=== PATIENT | female | born 1990 | race Caucasian/White ===

== ENCOUNTER 2016-05-18 23:32 | Emergency (ER) | payer MEDICAID ==
[~2016-05-18] VITALS: Ht 149.9 cm; Wt 58.3 kg
[~2016-05-18 23:32] MED LIST: CEPH-367 PO; FERR325T35 PO; FOLIC ACID; NITR100C56; ONDA4TAB7 PO; PREN1TAB60; TAMS-11 PO; stool softener
[2016-05-18 23:36] VITALS: BP 126/80
== END 2016-05-19 01:45 | disposition still patient (30) ==
LOC: ED 05-19 01:39
DX: R10.9 Unspecified abdominal pain (principal); M54.9 Dorsalgia, unspecified; R11.10 Vomiting, unspecified; Z53.21 Procedure and treatment not carried out due to patient leaving prior to being seen by health care provider

== ENCOUNTER 2016-07-29 21:38 | Emergency (ER) | payer MEDICAID ==
[~2016-07-29] VITALS: Ht 149.9 cm; Wt 58.1 kg
[2016-07-29] MEDS ORDERED: SODIUM CHLORIDE 0.9% 1,000 ML IV ONE (22:20)
[2016-07-29] MEDS ORDERED: ONDANSETRON 2MG/ML, 2ML ONE (22:28)
[2016-07-29] MEDS ORDERED: MORPHINE SULFATE 4 MG/ML, 1ML ONE ×2 (22:28→23:19)
[2016-07-29] MEDS ORDERED: SODIUM CHLORIDE 0.9% 1,000ML IVBOLUS ONE (22:30)
[2016-07-29] MEDS ORDERED: ONDANSETRON 2MG/ML, 2ML IVPush ONE (22:30)
[2016-07-29] MEDS ORDERED: SODIUM CHLORIDE FLUSH 10ML SYR IVF ONE (22:30)
[2016-07-29] MEDS: MORPHINE SULFATE 4 MG/ML, 1ML IVPush PRN ×2 (22:32→23:27)
[2016-07-29 22:49] LABS: ASPARTATE AMINO TRANSFERASE 31 U/L (15-37); BLOOD UREA NITROGEN 10 mg/dL (7-18)
[2016-07-29] MEDS ORDERED: OMNIPAQUE 350 MG/ML, 100ML BOTTLE ONE (23:24)
[2016-07-29] MEDS ORDERED: KETOROLAC 30 MG/1 ML ONE (23:59)
[2016-07-30] MEDS ORDERED: KETOROLAC 30 MG/1 ML IVPush ONE
[2016-07-30] MEDS ORDERED: DIPHENHYDRAMINE 50 MG/ML, 1ML ONE (00:26)
[2016-07-30] MEDS ORDERED: DIPHENHYDRAMINE 50 MG/ML, 1ML IVPush ONE (00:30)
[2016-07-30 01:41] VITALS: BP 119/79
== END 2016-07-30 01:44 | disposition home or self-care (01) ==
LOC: ED 07-30 01:38
DX: N20.0 Calculus of kidney (principal); D50.0 Iron deficiency anemia secondary to blood loss (chronic)
CPT/HCPCS: 36415; 36593; 74177; 80053; 81001; 84703; 85025; 87086; 96361; 96374; 96375; 99285; J1200; J1885; J2405; J7030; Q9967

== ENCOUNTER 2016-10-12 18:50 | Emergency (ER) | payer MEDICAID ==
[~2016-10-12] VITALS: Ht 149.9 cm; Wt 58.8 kg
[2016-10-12] MEDS ORDERED: SODIUM CHLORIDE 0.9% 1,000 ML IV ONE (19:13)
[2016-10-12] MEDS ORDERED: ONDANSETRON 2MG/ML, 2ML ONE ×2 (19:18→21:03)
[2016-10-12] MEDS ORDERED: HYDROmorphone 1 MG/ML, 1ML ONE (19:18)
[2016-10-12] MEDS ORDERED: SODIUM CHLORIDE FLUSH 10ML SYR IVF ONE (19:30)
[2016-10-12] MEDS ORDERED: SODIUM CHLORIDE 0.9% 1,000ML IVBOLUS ONE (19:30)
[2016-10-12] MEDS ORDERED: ONDANSETRON 2MG/ML, 2ML IVPush ONE ×2 (19:30→21:00)
[2016-10-12] MEDS: HYDROmorphone 1 MG/ML, 1ML IVPush PRN ×2 (19:33→19:57)
[2016-10-12 19:53] LABS: HEMATOCRIT 27.6 % (34.6-47.8); HEMOGLOBIN 8.8 g/dL (11.7-16.4); WHITE BLOOD COUNT 6.1 x10^3/uL (3.4-10)
[2016-10-12 20:01] LABS: ASPARTATE AMINO TRANSFERASE 26 U/L (15-37); BLOOD UREA NITROGEN 16 mg/dL (7-18)
[2016-10-12] MEDS ORDERED: CEFTRIAXONE PMX 1GM/50ML 50 ML ONE (21:11)
[2016-10-12] MEDS ORDERED: CEFTRIAXONE PMX 1GM/50ML 50 ML IVPB ONE (21:30)
[2016-10-12] MEDS ORDERED: methylPREDNISolone SOD SUCC 125 MG/2 ML ONE (21:32)
[2016-10-12] MEDS ORDERED: DIPHENHYDRAMINE 50 MG/ML, 1ML ONE (21:32)
[2016-10-12 21:43] VITALS: BP 129/80
[2016-10-12] MEDS ORDERED: methylPREDNISolone SOD SUCC 125 MG/2 ML IVPush ONE (22:00)
[2016-10-12] MEDS ORDERED: DIPHENHYDRAMINE 50 MG/ML, 1ML IVPush ONE (22:00)
== END 2016-10-12 22:28 | disposition home or self-care (01) ==
LOC: ED 20:12
DX: N10 Acute pyelonephritis (principal); R19.7 Diarrhea, unspecified; R11.2 Nausea with vomiting, unspecified
CPT/HCPCS: 36415; 74176; 80053; 81001; 83605; 83690; 84703; 85025; 87040; 87077; 87086; 87186; 96365; 96375; 96376; 99285; J0696; J1170; J1200; J2405; J2930; J7030

== ENCOUNTER 2016-11-17 21:28 | Emergency (ER) | payer MEDICAID ==
[~2016-11-17] VITALS: Ht 149.9 cm; Wt 60.3 kg
[~2016-11-17 21:28] MED LIST changes: +FERR-46 PO; -FERR325T35 PO
[2016-11-17] MEDS ORDERED: HYDROcodone/APAP 5/325 TABLET PO ONE (22:00)
[2016-11-17] MEDS ORDERED: ONDANSETRON ODT 4 MG PO ONE (22:00)
[2016-11-17 22:29] LABS: HEMATOCRIT 28.3 % (34.6-47.8); WHITE BLOOD COUNT 5.8 x10^3/uL (3.4-10)
[2016-11-17] MEDS ORDERED: HYDROcodone/APAP 5/325 TABLET ONE (22:33)
[2016-11-17] MEDS ORDERED: ONDANSETRON ODT 4 MG ONE (22:33)
[2016-11-17 22:34] LABS: BLOOD UREA NITROGEN 12 mg/dL (7-18)
[2016-11-17 22:40] LABS: ASPARTATE AMINO TRANSFERASE 18 U/L (15-37)
[2016-11-18] MEDS ORDERED: NITROFURANTOIN (MACROBID) 100 MG CAPSULE PO ONE
[2016-11-18 03:26] VITALS: BP 114/68
== END 2016-11-18 03:26 | disposition home or self-care (01) ==
LOC: ED 11-18 00:39
DX: N30.01 Acute cystitis with hematuria (principal)
CPT/HCPCS: 36415; 76770; 80053; 81001; 83690; 84703; 85025; 87086; 99285; Q0162

== ENCOUNTER 2016-11-30 17:03 | Emergency (ER) | payer MEDICAID ==
[~2016-11-30] VITALS: Ht 149.9 cm; Wt 59.9 kg
[2016-11-30] MEDS ORDERED: PHENAZOPYRIDINE 200 MG TABLET ONE (17:58)
[2016-11-30] MEDS ORDERED: KETOROLAC 30 MG/1 ML ONE (17:59)
[2016-11-30] MEDS ORDERED: PHENAZOPYRIDINE 200 MG TABLET PO ONE (18:00)
[2016-11-30] MEDS ORDERED: KETOROLAC 30 MG/1 ML IM ONE (18:00)
[2016-11-30 18:06] LABS: HEMATOCRIT 31.9 % (34.6-47.8); HEMOGLOBIN 9.9 g/dL (11.7-16.4); WHITE BLOOD COUNT 5.9 x10^3/uL (3.4-10)
[2016-11-30 18:14] LABS: BLOOD UREA NITROGEN 16 mg/dL (7-18)
[2016-11-30 18:37] LABS: DIFF TOTAL CELLS COUNTED 100 CELL DIFF
[2016-11-30 18:43] LABS: ANISOCYTOSIS 1+; HYPOCHROMIA 1+; MICROCYTOSIS 1+; VERIFY COUNTS? YES
[2016-11-30 18:44] LABS: LARGE PLATELETS 1+; POLYCHROMASIA 1+
[2016-11-30] MEDS ORDERED: DIPHENHYDRAMINE 25 MG CAPSULE ONE (18:50)
[2016-11-30] MEDS ORDERED: DIPHENHYDRAMINE 25 MG CAPSULE PO ONE (19:00)
[2016-11-30 19:22] VITALS: BP 128/77
== END 2016-11-30 19:25 | disposition home or self-care (01) ==
LOC: ED 18:55
DX: N20.0 Calculus of kidney (principal); N30.01 Acute cystitis with hematuria
CPT/HCPCS: 36415; 76770; 80048; 81001; 82040; 84703; 85025; 87086; 96372; 99285; J1885; Q0163

== ENCOUNTER 2017-03-07 14:21 | Emergency (ER) | payer MEDICAID ==
[~2017-03-07] VITALS: Ht 149.9 cm; Wt 61.4 kg
[2017-03-07 15:16] LABS: MICROSCOPIC INDICATED
[2017-03-07 15:56] LABS: ALBUMIN 3.8 g/dL (3.4-5.0); ANION GAP 7 mmol/L (5-15); CALCIUM 8.7 mg/dL (8.5-10.1); CHLORIDE 109 mmol/L (98-107); CREATININE 0.61 mg/dL (0.55-1.02)
[2017-03-07] MEDS ORDERED: ONDANSETRON ODT 4 MG ONE (16:10)
[2017-03-07 16:12] LABS: MEAN CORPUSCULAR HEMOGLOBIN 25.2 pg (27.0-34.8); MEAN CORPUSCULAR HGB CONC 32.1 g/dL (32.4-35.8); MEAN CORPUSCULAR VOLUME 78.5 fL (80-100); MEAN PLATELET VOLUME 9.2 fL (7.4-10.4); PLATELET COUNT 246 x10^3/uL (130-400); RED BLOOD COUNT 3.95 x10^6/uL (3.82-5.3); RED CELL DISTRIBUTION WIDTH 18.2 % (9.6-15.2)
[2017-03-07] MEDS ORDERED: ONDANSETRON ODT 4 MG PO ONE (16:30)
[2017-03-07 16:56] LABS: BASOPHILS # (AUTO) 0.08 x10^3/uL (0-0.1); BASOPHILS % (AUTO) 2 % (0-1); EOSINOPHILS # (AUTO) 0.08 x10^3/uL (0-0.4); EOSINOPHILS % (AUTO) 2 % (1-7); LYMPHOCYTES # (AUTO) 1.87 x10^3/uL (1-3.4); LYMPHOCYTES % (AUTO) 36 % (22-44); MONOCYTES # (AUTO) 0.36 x10^3/uL (0.2-0.8); MONOCYTES % (AUTO) 7 % (2-9); NEUTROPHILS # (AUTO) 2.76 x10^3/uL (1.8-6.8); NEUTROPHILS % (AUTO) 54 % (42-75)
[2017-03-07] MEDS ORDERED: HYDROcodone/APAP 5/325 TABLET PO ONE (17:00)
[2017-03-07 17:03] LABS: MD SCAN
[2017-03-07] MEDS ORDERED: HYDROcodone/APAP 5/325 TABLET ONE (17:25)
[2017-03-07 18:41] VITALS: BP 135/90
== END 2017-03-07 18:44 | disposition home or self-care (01) ==
LOC: ED 16:59
DX: N30.00 Acute cystitis without hematuria (principal)
CPT/HCPCS: 36415; 74176; 80048; 81001; 82040; 84703; 85025; 99285; Q0162

== ENCOUNTER 2017-09-01 20:31 | Emergency (ER) | payer MEDICAID ==
[~2017-09-01] VITALS: Ht 149.9 cm; Wt 61.9 kg
[2017-09-01] MEDS ORDERED: HYDROcodone/APAP 5/325 TABLET ONE (21:06)
[2017-09-01 21:18] VITALS: BP 118/81
[2017-09-01] MEDS ORDERED: HYDROcodone/APAP 5/325 TABLET PO ONE (21:30)
== END 2017-09-01 21:21 | disposition home or self-care (01) ==
LOC: ED 21:15
DX: K08.89 Other specified disorders of teeth and supporting structures (principal)
CPT/HCPCS: 99283

== ENCOUNTER 2017-09-15 19:40 | Emergency (ER) | payer MEDICAID ==
[~2017-09-15] VITALS: Ht 149.9 cm; Wt 63.4 kg
[2017-09-15 20:20] LABS: BASOPHILS # (AUTO) 0.08 x10^3/uL (0-0.1); BASOPHILS % (AUTO) 1 % (0-1); EOSINOPHILS # (AUTO) 0.11 x10^3/uL (0-0.4); EOSINOPHILS % (AUTO) 2 % (1-7); LYMPHOCYTES # (AUTO) 2.55 x10^3/uL (1-3.4); LYMPHOCYTES % (AUTO) 44 % (22-44); MD NO; MEAN CORPUSCULAR HEMOGLOBIN 25.3 pg (27.0-34.8); MEAN CORPUSCULAR HGB CONC 31.4 g/dL (32.4-35.8); MEAN CORPUSCULAR VOLUME 80.4 fL (80-100); MEAN PLATELET VOLUME 9.3 fL (7.4-10.4); MONOCYTES # (AUTO) 0.42 x10^3/uL (0.2-0.8); MONOCYTES % (AUTO) 7 % (2-9); NEUTROPHILS # (AUTO) 2.67 x10^3/uL (1.8-6.8); NEUTROPHILS % (AUTO) 46 % (42-75); PLATELET COUNT 287 x10^3/uL (130-400); RED BLOOD COUNT 3.88 x10^6/uL (3.82-5.3); RED CELL DISTRIBUTION WIDTH 19.9 % (9.6-15.2)
[2017-09-15 20:29] LABS: ALANINE AMINOTRANSFERASE 25 U/L (12-78); ANION GAP 8 mmol/L (5-15); CALCIUM 8.9 mg/dL (8.5-10.1); CHLORIDE 110 mmol/L (98-107); CREATININE 0.63 mg/dL (0.55-1.02)
[2017-09-15 20:33] LABS: ALKALINE PHOSPHATASE 76 U/L (45-117); BILIRUBIN,TOTAL 0.2 mg/dL (0.2-1.0); TOTAL PROTEIN 7.8 g/dL (6.4-8.2)
[2017-09-15 20:37] LABS: MICROSCOPIC INDICATED
[2017-09-15 20:38] LABS: CULTURE INDICATED? YES
[2017-09-15 21:26] VITALS: BP 132/78
[2017-09-15] MEDS ORDERED: ONDANSETRON ODT 4 MG ONE (21:27)
[2017-09-15] MEDS ORDERED: ONDANSETRON ODT 4 MG PO ONE (21:30)
== END 2017-09-15 21:44 | disposition home or self-care (01) ==
LOC: ED 21:30
DX: R10.32 Left lower quadrant pain (principal)
CPT/HCPCS: 36415; 76830; 80053; 81001; 84703; 85025; 87086; 99285; Q0162

== ENCOUNTER 2018-01-26 10:30 | Emergency (ER) | payer MEDICAID ==
[~2018-01-26] VITALS: Ht 149.9 cm; Wt 62.6 kg
[2018-01-26 10:37] VITALS: BP 130/82
== END 2018-01-26 11:08 | disposition home or self-care (01) ==
LOC: ED 11:03
DX: K02.9 Dental caries, unspecified (principal)
CPT/HCPCS: 99283

== ENCOUNTER 2018-09-23 19:31 | Emergency (ER) | payer MEDICAID ==
[~2018-09-23] VITALS: Ht 149.9 cm; Wt 65.5 kg
[2018-09-23 19:33] VITALS: BP 118/81
== END 2018-09-23 22:31 | disposition home or self-care (01) ==
LOC: ED 22:26
DX: N39.0 Urinary tract infection, site not specified (principal); R11.10 Vomiting, unspecified; Z87.891 Personal history of nicotine dependence
CPT/HCPCS: 36415; 74176; 80053; 81001; 84703; 85025; 87086; 96361; 96374; 96375; 99284; J2270; J2405; J7030

== ENCOUNTER 2019-01-13 09:55 | Emergency (ER) | payer MEDICAID ==
[~2019-01-13] VITALS: Ht 149.9 cm; Wt 62.8 kg
[2019-01-13 09:56] VITALS: BP 156/91
[2019-01-13 10:52] LABS: MICROSCOPIC INDICATED
[2019-01-13 10:53] LABS: CULTURE INDICATED? YES
[2019-01-13 10:55] LABS: ANION GAP 6 mmol/L (5-15); CALCIUM 8.6 mg/dL (8.5-10.1); CHLORIDE 112 mmol/L (98-107); CREATININE 0.68 mg/dL (0.55-1.02)
[2019-01-13 11:00] LABS: BASOPHILS # (AUTO) 0.03 x10^3/uL (0-0.1); BASOPHILS % (AUTO) 1 % (0-1); EOSINOPHILS # (AUTO) 0.06 x10^3/uL (0-0.4); EOSINOPHILS % (AUTO) 1 % (1-7); LYMPHOCYTES # (AUTO) 1.51 x10^3/uL (1-3.4); LYMPHOCYTES % (AUTO) 27 % (22-44); MD NO; MEAN CORPUSCULAR HEMOGLOBIN 23.2 pg (27.0-34.8); MEAN CORPUSCULAR VOLUME 77.3 fL (80-100); MEAN PLATELET VOLUME 8.7 fL (7.4-10.4); MONOCYTES # (AUTO) 0.31 x10^3/uL (0.2-0.8); MONOCYTES % (AUTO) 6 % (2-9); NEUTROPHILS # (AUTO) 3.73 x10^3/uL (1.8-6.8); NEUTROPHILS % (AUTO) 66 % (42-75); PLATELET COUNT 288 x10^3/uL (130-400); RED BLOOD COUNT 3.92 x10^6/uL (3.82-5.3); RED CELL DISTRIBUTION WIDTH 19.3 % (9.6-15.2)
== END 2019-01-13 12:33 | disposition home or self-care (01) ==
LOC: ED 12:28
DX: N30.01 Acute cystitis with hematuria (principal)
CPT/HCPCS: 36415; 80048; 81001; 82040; 84703; 85025; 87077; 87086; 87186; 99283

== ENCOUNTER 2019-05-29 23:11 | Emergency (ER) | payer MEDICAID ==
[~2019-05-29] VITALS: Ht 149.9 cm; Wt 63.7 kg
--- NOTE | 2019-05-29 23:54 | NUR ---
Patient brought back to room from triage, patient changed into gown. Provider to bedside for assessment. Orders placed. RN to bedside to initiated peripheral intravenous access per order for imaging and medications. Patient reported needing to use the bathroom. Reviewed clean catch urine instructions. Patient verbalized understanding. Will return and complete PIV placement on patient's return.
[2019-05-30] MEDS ORDERED: SODIUM CHLORIDE FLUSH 10ML SYR IVF ONE
[2019-05-30] MEDS ORDERED: ONDANSETRON 2MG/ML, 2ML IVPush ONE
[2019-05-30] MEDS ORDERED: ONDANSETRON 2MG/ML, 2ML ONE (00:20)
[2019-05-30] MEDS ORDERED: MORPHINE SULFATE 4 MG/ML, 1ML ONE ×2 (00:20→01:08)
[2019-05-30] MEDS: MORPHINE SULFATE 4 MG/ML, 1ML IVPush PRN ×2 (00:22→01:10)
[2019-05-30 00:29] LABS: MICROSCOPIC AUTO
[2019-05-30 00:33] LABS: MEAN CORPUSCULAR HEMOGLOBIN 21.8 pg (27.0-34.8); MEAN CORPUSCULAR HGB CONC 30.6 g/dL (32.4-35.8); MEAN CORPUSCULAR VOLUME 71.1 fL (80-100); MEAN PLATELET VOLUME 8.9 fL (7.4-10.4); PLATELET COUNT 333 x10^3/uL (130-400); RED BLOOD COUNT 3.93 x10^6/uL (3.82-5.3); RED CELL DISTRIBUTION WIDTH 20.8 % (9.6-15.2)
[2019-05-30 00:33] LABS: CULTURE INDICATED? YES
[2019-05-30 00:35] LABS: ALBUMIN 4.1 g/dL (3.4-5.0); ANION GAP 8 mmol/L (5-15); CALCIUM 8.6 mg/dL (8.5-10.1); CHLORIDE 111 mmol/L (98-107)
[2019-05-30 00:41] LABS: ALANINE AMINOTRANSFERASE 24 U/L (12-78); ALKALINE PHOSPHATASE 70 U/L (45-117); CREATININE 0.64 mg/dL (0.55-1.02); TOTAL PROTEIN 8.6 g/dL (6.4-8.2)
--- NOTE | 2019-05-30 00:41 | NUR ---
RN to bedside, initiated intravenous access, bharati labs. Patient collected urine sample, collected from cup and sent both blood and urine in tubes with analytical laboratory technician. RN then returned, administered analgesic and antiemetic medication. Patient then reattached to pulsatile oxygen sensor and blood pressure cuff. Vital signs stable (see flowsheet) awaiting computed tomography scan.
[2019-05-30 00:42] LABS: BILIRUBIN,TOTAL < 0.1 mg/dL (0.2-1.0)
[2019-05-30 00:55] LABS: BASOPHILS # (AUTO) 0.28 x10^3/uL (0-0.1); BASOPHILS % (AUTO) 3 % (0-1); EOSINOPHILS # (AUTO) 0.13 x10^3/uL (0-0.4); EOSINOPHILS % (AUTO) 2 % (1-7); LYMPHOCYTES # (AUTO) 2.28 x10^3/uL (1-3.4); LYMPHOCYTES % (AUTO) 26 % (22-44); MD SCAN; MONOCYTES # (AUTO) 0.52 x10^3/uL (0.2-0.8); MONOCYTES % (AUTO) 6 % (2-9); NEUTROPHILS # (AUTO) 5.57 x10^3/uL (1.8-6.8); NEUTROPHILS % (AUTO) 63 % (42-75)
[2019-05-30 01:05] VITALS: BP 128/84
--- NOTE | 2019-05-30 01:25 | NUR ---
BREAK RN: PT ON CELL PHONE IN ROOM. NO ACUTE DISTRESS NTOED. CALL LIGHT IN PLACE. WILL CONTINUE TO MONITOR.
--- NOTE | 2019-05-30 01:28 | NUR ---
REPORT GIVEN TO JORGE SAEED
--- NOTE | 2019-05-30 01:29 | NUR ---
Patient resting comfortably. Awaiting imaging results.
[2019-05-30] MEDS ORDERED: SULFAMETH./TRIMETHOPRIM DS 800MG/160MG TABLET ONE (02:26)
[2019-05-30] MEDS ORDERED: HYDROcodone/APAP 5/325 TABLET ONE (02:26)
[2019-05-30] MEDS ORDERED: HYDROcodone/APAP 5/325 TABLET PO ONE (02:30)
[2019-05-30] MEDS ORDERED: SULFAMETH./TRIMETHOPRIM DS 800MG/160MG TABLET PO ONE (02:30)
== END 2019-05-30 02:47 | disposition home or self-care (01) ==
LOC: ED 05-30 00:11
DX: N10 Acute pyelonephritis (principal); R10.31 Right lower quadrant pain; Z87.891 Personal history of nicotine dependence
CPT/HCPCS: 36415; 74176; 80053; 81001; 83690; 84703; 85025; 87077; 87086; 87147; 96374; 96375; 96376; 99284; J2270; J2405; 87186

== ENCOUNTER 2019-06-04 21:21 | Emergency (ER) | payer MEDICAID ==
[~2019-06-04] VITALS: Ht 149.9 cm; Wt 63.7 kg
[2019-06-04] MEDS ORDERED: SULF1TAB23 PO (21:47)
--- NOTE | 2019-06-04 21:54 | NUR ---
Pt reports she has been dx'd with kidney infection and kidney stones. Pt reports consistent pain to her right abd/flank and new 2 day onset of left sided stabbing flank pain. Pt reports bladder pain/pressure but no burning/pain with urination. Pt reports she is taking bactrim. No fevers at home. 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 Urine sample collected and sent. Pt in gown. Call light within reach. PRECISION JIG GRINDER at bedside.
[2019-06-04] MEDS ORDERED: MORPHINE SULFATE 4 MG/ML, 1ML IVPush PRN (22:00)
[2019-06-04] MEDS ORDERED: MORPHINE SULFATE 4 MG/ML, 1ML ONE (22:00)
[2019-06-04] MEDS ORDERED: ONDANSETRON 2MG/ML, 2ML ONE (22:00)
[2019-06-04] MEDS ORDERED: ONDANSETRON 2MG/ML, 2ML IVPush ONE (22:00)
[2019-06-04] MEDS ORDERED: SODIUM CHLORIDE FLUSH 10ML SYR IVF ONE (22:00)
[2019-06-04 22:15] LABS: MICROSCOPIC INDICATED
[2019-06-04 22:16] LABS: CULTURE INDICATED? YES
[2019-06-04 22:21] LABS: BASOPHILS # (AUTO) 0.01 x10^3/uL (0-0.1); BASOPHILS % (AUTO) 0 % (0-1); EOSINOPHILS # (AUTO) 0.11 x10^3/uL (0-0.4); EOSINOPHILS % (AUTO) 2 % (1-7); LYMPHOCYTES # (AUTO) 1.92 x10^3/uL (1-3.4); LYMPHOCYTES % (AUTO) 30 % (22-44); MD NO; MEAN CORPUSCULAR HEMOGLOBIN 21.9 pg (27.0-34.8); MEAN CORPUSCULAR HGB CONC 30.7 g/dL (32.4-35.8); MEAN CORPUSCULAR VOLUME 71.4 fL (80-100); MEAN PLATELET VOLUME 8.4 fL (7.4-10.4); MONOCYTES % (AUTO) 6 % (2-9); NEUTROPHILS # (AUTO) 3.94 x10^3/uL (1.8-6.8); NEUTROPHILS % (AUTO) 62 % (42-75); PLATELET COUNT 277 x10^3/uL (130-400); RED BLOOD COUNT 3.67 x10^6/uL (3.82-5.3); RED CELL DISTRIBUTION WIDTH 21.2 % (9.6-15.2)
--- NOTE | 2019-06-04 22:24 | NUR ---
PIV placed. Lab at bedside for draw. Pt medicated per APR. Pt on pulse ox/HR monitor. Call light within reach. Warm blanket provided. Aware of wait for lab results.
[2019-06-04 22:32] LABS: ALANINE AMINOTRANSFERASE 19 U/L (12-78); ALBUMIN 3.2 g/dL (3.4-5.0); ANION GAP 6 mmol/L (5-15); CALCIUM 8.3 mg/dL (8.5-10.1); CHLORIDE 111 mmol/L (98-107); CREATININE 0.54 mg/dL (0.55-1.02)
[2019-06-04 22:36] LABS: ALKALINE PHOSPHATASE 59 U/L (45-117); BILIRUBIN,TOTAL 0.1 mg/dL (0.2-1.0); TOTAL PROTEIN 7.7 g/dL (6.4-8.2)
--- NOTE | 2019-06-04 23:19 | NUR ---
Pt alert and sitting up on gurney. at bedside discussing POC. Pt reports pain to her right side has improved.
[2019-06-05 00:15] VITALS: BP 125/71
--- NOTE | 2019-06-05 00:15 | NUR ---
Pt d/c'd to home care. Pt alert, oriented and ambulatory. Pt educated on home care, prescription, OTC meds and follow-up. Pt VU. Pt ambulated out of ER.
== END 2019-06-05 00:18 | disposition home or self-care (01) ==
LOC: ED 22:25
DX: N39.0 Urinary tract infection, site not specified (principal); N10 Acute pyelonephritis
CPT/HCPCS: 36415; 80053; 81001; 84703; 85025; 87086; 96374; 96375; 99284; J2270; J2405

== ENCOUNTER 2019-07-12 19:03 | Emergency (ER) | payer MEDICAID ==
[~2019-07-12] VITALS: Ht 149.9 cm; Wt 63.5 kg
[~2019-07-12 19:03] MED LIST changes: +SULF1TAB23 PO
--- NOTE | 2019-07-12 19:10 | NUR ---
SERVER MANAGER: PT PROVIDED WITH URINE CUP TO OBTAIN SAMPLE WHILE WAITING
[2019-07-12] MEDS ORDERED: SODIUM CHLORIDE 0.9% 1,000 ML IV ONE (19:49)
[2019-07-12] MEDS ORDERED: KETOROLAC 30 MG/1 ML ONE (19:58)
[2019-07-12] MEDS ORDERED: ONDANSETRON 2MG/ML, 2ML ONE (19:58)
[2019-07-12 19:59] LABS: CULTURE INDICATED? YES; MICROSCOPIC AUTO
[2019-07-12] MEDS ORDERED: MORPHINE SULFATE 4 MG/ML, 1ML ONE (19:59)
[2019-07-12] MEDS ORDERED: ONDANSETRON 2MG/ML, 2ML IVPush ONE (20:00)
[2019-07-12] MEDS ORDERED: KETOROLAC 30 MG/1 ML IVPush ONE (20:00)
[2019-07-12] MEDS ORDERED: SODIUM CHLORIDE FLUSH 10ML SYR IVF ONE (20:00)
[2019-07-12] MEDS: MORPHINE SULFATE 4 MG/ML, 1ML IVPush PRN ×2 (20:01→21:31)
--- NOTE | 2019-07-12 20:21 | NUR ---
ATTEMPTED TO START IV, UNSUCCESSFUL. STAFFING MANAGER WILL ATTEMPT IV ACCESS.
--- NOTE | 2019-07-12 20:32 | NUR ---
CT PENDING BETA RESULT.
[2019-07-12 21:11] LABS: ALBUMIN 3.7 g/dL (3.4-5.0); ANION GAP 6 mmol/L (5-15); CALCIUM 8.8 mg/dL (8.5-10.1); CHLORIDE 109 mmol/L (98-107); CREATININE 0.62 mg/dL (0.55-1.02)
[2019-07-12 21:12] LABS: MEAN CORPUSCULAR HEMOGLOBIN 22.2 pg (27.0-34.8); MEAN CORPUSCULAR HGB CONC 30.9 g/dL (32.4-35.8); RED BLOOD COUNT 3.79 x10^6/uL (3.82-5.3); RED CELL DISTRIBUTION WIDTH 19.2 % (9.6-15.2)
[2019-07-12 21:30] LABS: MD YES; MEAN PLATELET VOLUME 9.3 fL (7.4-10.4); PLATELET COUNT 263 x10^3/uL (130-400)
[2019-07-12 21:37] LABS: BASOS#(MANUAL) 0.06 x10^3/uL (0-0.1); BASOS% (MANUAL) 1 % (0-1); LYMPHS% (MANUAL) 41 % (22-44); MONOS#(MANUAL) 0.37 x10^3/uL (0.3-2.7); MONOS% (MANUAL) 6 % (2-9); SEG#(MANUAL) 3.17 x10^3/uL (1.8-6.8); SEGS% (MANUAL) 52 % (42-75)
[2019-07-12 21:38] LABS: ANISOCYTOSIS 1+; HYPOCHROMIA 1+
[2019-07-12 21:39] LABS: <PLATELET ESTIMATE> ADEQUATE; <PLT MORPHOLOGY> NORMAL PLT MORPH; OVALOCYTES 1+
[2019-07-12] MEDS ORDERED: HYDROmorphone 1 MG/ML, 1ML INJ ONE (21:46)
--- NOTE | 2019-07-12 21:55 | NUR ---
PATIENT GIVEN PAIN MEDICATION. TOLERATED WELL. VITAL SIGNS STABLE. NO NOTED ACUTE DISTRESS. AT BEDSIDE WITH PATIENT.
[2019-07-12] MEDS ORDERED: HYDROmorphone 2 MG/ML, 1ML IVPush ONE (22:00)
[2019-07-12 22:20] VITALS: BP 126/64
[2019-07-12 22:29] LABS: % IRON SATURATION 4 % (20-55); IRON LEVEL 18 mcg/dL (50-170); TOTAL IRON BINDING CAPACITY 442 mcg/dL (250-450)
== END 2019-07-12 22:22 | disposition home or self-care (01) ==
LOC: ED 22:10
DX: N10 Acute pyelonephritis (principal); R31.9 Hematuria, unspecified; N39.0 Urinary tract infection, site not specified; D53.9 Nutritional anemia, unspecified; R11.2 Nausea with vomiting, unspecified
CPT/HCPCS: 36415; 74176; 80048; 81001; 82040; 83540; 83550; 84703; 85025; 87077; 87086; 96361; 96374; 96375; 96376; 99284; J1170; J2270; J2405; J7030; 87186

== ENCOUNTER 2019-07-18 19:03 | Emergency (ER) | payer MEDICAID ==
[~2019-07-18] VITALS: Ht 149.9 cm; Wt 63.0 kg
--- NOTE | 2019-07-18 19:17 | NUR ---
C/O RIGTH SIDE ABD PAIN THAT RADIATES TO BACK X2 DAYS.
[2019-07-18] MEDS ORDERED: ONDA4TAB7 PO (19:24)
[2019-07-18] MEDS ORDERED: HYDR-3240 PO ×2 (19:24)
--- NOTE | 2019-07-18 20:06 | NUR ---
PROVIDER AT BEDSIDE FOR EVAL.
[2019-07-18] MEDS ORDERED: ONDANSETRON 2MG/ML, 2ML ONE (20:11)
[2019-07-18] MEDS ORDERED: FAMOTIDINE 20 MG/2 ML ONE (20:12)
[2019-07-18] MEDS ORDERED: SODIUM CHLORIDE 0.9% 1,000ML IVBOLUS ONE (20:30)
[2019-07-18] MEDS ORDERED: ONDANSETRON 2MG/ML, 2ML IVPush ONE (20:30)
[2019-07-18] MEDS ORDERED: FAMOTIDINE 20 MG/2 ML IV ONE (20:30)
[2019-07-18] MEDS ORDERED: SODIUM CHLORIDE FLUSH 10ML SYR IVF ONE (20:30)
--- NOTE | 2019-07-18 20:31 | NUR ---
MEDICATED PER MAR. PT REPORT REPORTS PAIN 5/10.
[2019-07-18 20:34] LABS: BASOPHILS # (AUTO) 0.04 x10^3/uL (0-0.1); BASOPHILS % (AUTO) 1 % (0-1); EOSINOPHILS # (AUTO) 0.11 x10^3/uL (0-0.4); EOSINOPHILS % (AUTO) 2 % (1-7); LYMPHOCYTES # (AUTO) 1.79 x10^3/uL (1-3.4); LYMPHOCYTES % (AUTO) 32 % (22-44); MD NO; MEAN CORPUSCULAR HEMOGLOBIN 22.4 pg (27.0-34.8); MEAN CORPUSCULAR HGB CONC 30.4 g/dL (32.4-35.8); MEAN CORPUSCULAR VOLUME 73.6 fL (80-100); MEAN PLATELET VOLUME 8.5 fL (7.4-10.4); MONOCYTES # (AUTO) 0.26 x10^3/uL (0.2-0.8); MONOCYTES % (AUTO) 5 % (2-9); NEUTROPHILS % (AUTO) 61 % (42-75); PLATELET COUNT 270 x10^3/uL (130-400); RED BLOOD COUNT 3.63 x10^6/uL (3.82-5.3); RED CELL DISTRIBUTION WIDTH 19.7 % (9.6-15.2)
[2019-07-18 20:43] LABS: ALANINE AMINOTRANSFERASE 18 U/L (12-78); ALBUMIN 3.6 g/dL (3.4-5.0); ANION GAP 7 mmol/L (5-15); CALCIUM 8.2 mg/dL (8.5-10.1); CHLORIDE 109 mmol/L (98-107); CREATININE 0.73 mg/dL (0.55-1.02)
[2019-07-18] MEDS ORDERED: MORPHINE SULFATE 4 MG/ML, 1ML ONE (20:43)
[2019-07-18 20:47] LABS: ALKALINE PHOSPHATASE 65 U/L (45-117); BILIRUBIN,TOTAL 0.2 mg/dL (0.2-1.0); TOTAL PROTEIN 7.9 g/dL (6.4-8.2)
[2019-07-18 20:51] LABS: MICROSCOPIC INDICATED
[2019-07-18] MEDS ORDERED: MORPHINE SULFATE 4 MG/ML, 1ML IVPush ONE (21:00)
--- NOTE | 2019-07-18 21:05 | NUR ---
ULTRASOUND AT BEDSIDE.
[2019-07-18 21:16] VITALS: BP 125/70
== END 2019-07-18 22:06 ==
LOC: ED 22:00
DX: G89.29 Other chronic pain (principal); R10.9 Unspecified abdominal pain; R11.2 Nausea with vomiting, unspecified; D63.8 Anemia in other chronic diseases classified elsewhere; Z88.1 Allergy status to other antibiotic agents; Z88.6 Allergy status to analgesic agent; Z98.51 Tubal ligation status
CPT/HCPCS: 36415; 76770; 80053; 81001; 84703; 85025; 87086; 96361; 96374; 96375; 99284; J2270; J2405; J3490; J7030

== ENCOUNTER 2019-07-30 20:44 | Emergency (ER) | payer MEDICAID ==
[~2019-07-30] VITALS: Ht 149.9 cm; Wt 64.7 kg
[~2019-07-30 20:44] MED LIST changes: +HYDR-3240 PO
--- NOTE | 2019-07-30 20:59 | NUR ---
PT UP TO RESTROOM FOR URINE SAMPLE AT THIS TIME
--- NOTE | 2019-07-30 21:14 | NUR ---
URINE SENT TO LAB
--- NOTE | 2019-07-30 21:14 | NUR ---
THIS IS A 28Y F THAT COMES IN TONIGHT FOR R SIDED ABD PAIN X1DAY. PT STS SHE WENT TO THE BATHROOM TODAY AND THERE WAS BLOOD BUT SHE IS NOT CURRENTLY ON HER PERIOD. PT REPORTS HX OF UTI, KIDNEY STONES AND CYST ON HER KIDNEY. PT HAS AN APPT WITH A SURGEON ABOUT THE CYST REMOVAL. PT RESTING ON RENETTA MEDINA. WAITING FOR FURTHER ORDERS
[2019-07-30 21:28] LABS: HCG UR SG 1.017 (1.003-1.030); MICROSCOPIC AUTO
[2019-07-30] MEDS ORDERED: MORPHINE SULFATE 4 MG/ML, 1ML IVPush PRN (21:30)
[2019-07-30] MEDS ORDERED: SODIUM CHLORIDE 0.9% 1,000ML IV ONE (21:30)
[2019-07-30] MEDS ORDERED: ONDANSETRON 2MG/ML, 2ML IVPush ONE (21:30)
[2019-07-30] MEDS ORDERED: ONDANSETRON 2MG/ML, 2ML ONE (21:38)
[2019-07-30] MEDS ORDERED: MORPHINE SULFATE 4 MG/ML, 1ML ONE (21:38)
[2019-07-30 22:00] VITALS: BP 114/69
--- NOTE | 2019-07-30 22:06 | NUR ---
PT MEDICATED PER MAY 04 RIGHTS VERIFIED
[2019-07-30 22:10] LABS: MEAN CORPUSCULAR HEMOGLOBIN 22.1 pg (27.0-34.8); MEAN CORPUSCULAR HGB CONC 30.5 g/dL (32.4-35.8); MEAN CORPUSCULAR VOLUME 72.5 fL (80-100); MEAN PLATELET VOLUME 8.7 fL (7.4-10.4); PLATELET COUNT 343 x10^3/uL (130-400); RED BLOOD COUNT 3.77 x10^6/uL (3.82-5.3); RED CELL DISTRIBUTION WIDTH 18.9 % (9.6-15.2)
[2019-07-30 22:15] LABS: ALBUMIN 3.9 g/dL (3.4-5.0); ANION GAP 6 mmol/L (5-15); CALCIUM 8.6 mg/dL (8.5-10.1); CHLORIDE 110 mmol/L (98-107); CREATININE 0.87 mg/dL (0.55-1.02)
[2019-07-30 22:43] LABS: BASOPHILS # (AUTO) 0.16 x10^3/uL (0-0.1); BASOPHILS % (AUTO) 3 % (0-1); EOSINOPHILS # (AUTO) 0.13 x10^3/uL (0-0.4); EOSINOPHILS % (AUTO) 3 % (1-7); LYMPHOCYTES # (AUTO) 2.05 x10^3/uL (1-3.4); LYMPHOCYTES % (AUTO) 39 % (22-44); MD SCAN; MONOCYTES # (AUTO) 0.35 x10^3/uL (0.2-0.8); MONOCYTES % (AUTO) 7 % (2-9); NEUTROPHILS # (AUTO) 2.58 x10^3/uL (1.8-6.8); NEUTROPHILS % (AUTO) 49 % (42-75)
--- NOTE | 2019-07-30 22:47 | NUR ---
ALL RESULTS BACK AT THIS TIME CHART UP FOR RECHECK
--- NOTE | 2019-07-30 23:06 | NUR ---
Patient/Caregiver given discharge instructions and they have confirmed that they understand the instructions. Patient ambulatory with steady gait.
== END 2019-07-30 23:21 | disposition home or self-care (01) ==
LOC: ED 23:17
DX: N20.1 Calculus of ureter (principal); R11.2 Nausea with vomiting, unspecified; R30.0 Dysuria; R10.9 Unspecified abdominal pain; Z95.0 Presence of cardiac pacemaker
CPT/HCPCS: 36415; 74018; 76770; 80048; 81001; 81025; 82040; 85025; 87086; 96361; 96374; 96375; 99285; J2270; J2405; J7030

== ENCOUNTER 2019-08-17 21:13 | Emergency (ER) | payer MEDICAID ==
[~2019-08-17] VITALS: Ht 149.9 cm; Wt 62.0 kg
[2019-08-17 21:17] VITALS: BP 131/78
--- NOTE | 2019-08-17 21:30 | NUR ---
Late entry from 2129: Patient presents to ER c/o left flank and left abd pain. Patient states she was recently dx with kidney stones and she passed one this morning. She had been having these pains since yesterday but after she passed the kidney stones, it became worse. Patient is in NAD. Respirations even and unlabored.
[2019-08-17] MEDS ORDERED: ONDANSETRON ODT 4 MG PO ONE (22:00)
[2019-08-17] MEDS ORDERED: morphine SULFATE 15 MG TAB.IR PO ONE (22:00)
[2019-08-17] MEDS ORDERED: IBUPROFEN 600 MG TABLET PO ONE (22:00)
[2019-08-17 22:07] LABS: ALBUMIN 3.9 g/dL (3.4-5.0); ANION GAP 5 mmol/L (5-15); CALCIUM 8.5 mg/dL (8.5-10.1); CHLORIDE 109 mmol/L (98-107); CREATININE 0.88 mg/dL (0.55-1.02)
[2019-08-17 22:11] LABS: MEAN CORPUSCULAR HEMOGLOBIN 22.4 pg (27.0-34.8); MEAN CORPUSCULAR HGB CONC 30.7 g/dL (32.4-35.8); MEAN PLATELET VOLUME 8.9 fL (7.4-10.4); PLATELET COUNT 268 x10^3/uL (130-400); RED BLOOD COUNT 3.78 x10^6/uL (3.82-5.3)
[2019-08-17] MEDS ORDERED: ONDANSETRON ODT 4 MG ONE (22:26)
[2019-08-17 22:47] LABS: BASOPHILS # (AUTO) 0.04 x10^3/uL (0-0.1); BASOPHILS % (AUTO) 1 % (0-1); EOSINOPHILS # (AUTO) 0.05 x10^3/uL (0-0.4); EOSINOPHILS % (AUTO) 1 % (1-7); LYMPHOCYTES # (AUTO) 2.08 x10^3/uL (1-3.4); LYMPHOCYTES % (AUTO) 33 % (22-44); MD SCAN; MONOCYTES # (AUTO) 0.38 x10^3/uL (0.2-0.8); MONOCYTES % (AUTO) 6 % (2-9); NEUTROPHILS # (AUTO) 3.78 x10^3/uL (1.8-6.8); NEUTROPHILS % (AUTO) 60 % (42-75)
[2019-08-17 23:05] LABS: MICROSCOPIC INDICATED
--- NOTE | 2019-08-17 23:57 | NUR ---
Discharge instructions given. All questions and concerns addressed. patient ambulatory with a steady gait. Belongings with patients.
== END 2019-08-17 23:58 | disposition home or self-care (01) ==
LOC: ED 22:56
DX: N20.0 Calculus of kidney (principal); N13.30 Unspecified hydronephrosis; Z98.51 Tubal ligation status
CPT/HCPCS: 36415; 76770; 80048; 81001; 82040; 85025; 87077; 87086; 87186; 99284; Q0162

== ENCOUNTER 2019-08-25 19:22 | Emergency (ER) | payer MEDICAID ==
[~2019-08-25] VITALS: Ht 149.9 cm; Wt 61.0 kg
--- NOTE | 2019-08-25 19:58 | NUR ---
PT NOT IN LOBBY AT THIS TIME
--- NOTE | 2019-08-25 20:30 | NUR ---
PT AMBULATED TO RESTROOM WITH STEADY GAIT TO PROVIDE URINE SAMPLE. UA COLLECTED AND SENT TO LAB.
[2019-08-25 20:32] LABS: MEAN CORPUSCULAR HEMOGLOBIN 22.1 pg (27.0-34.8); MEAN CORPUSCULAR HGB CONC 30.2 g/dL (32.4-35.8); MEAN CORPUSCULAR VOLUME 73.2 fL (80-100); MEAN PLATELET VOLUME 8.2 fL (7.4-10.4); PLATELET COUNT 355 x10^3/uL (130-400); RED BLOOD COUNT 3.68 x10^6/uL (3.82-5.3); RED CELL DISTRIBUTION WIDTH 18.5 % (9.6-15.2)
[2019-08-25] MEDS ORDERED: MORPHINE SULFATE 4 MG/ML, 1ML ONE ×2 (20:35→21:33)
[2019-08-25] MEDS ORDERED: ONDANSETRON 2MG/ML, 2ML ONE ×2 (20:35→21:33)
[2019-08-25 20:41] LABS: ANION GAP 7 mmol/L (5-15); CALCIUM 8.7 mg/dL (8.5-10.1); CHLORIDE 109 mmol/L (98-107); CREATININE 0.75 mg/dL (0.55-1.02)
[2019-08-25 20:47] LABS: MICROSCOPIC INDICATED
--- NOTE | 2019-08-25 20:57 | NUR ---
PIV PLACED. MEDS ADMIN PER APR. PT PLACED ON OXYGEN FOR SAFETY. PT RESTING ON GURNEY.
[2019-08-25] MEDS ORDERED: ONDANSETRON 2MG/ML, 2ML IVPush ONE ×2 (21:00→22:00)
[2019-08-25] MEDS ORDERED: MORPHINE SULFATE 4 MG/ML, 1ML IVPush ONE ×2 (21:00→22:00)
[2019-08-25 21:05] LABS: BASOPHILS # (AUTO) 0.03 x10^3/uL (0-0.1); BASOPHILS % (AUTO) 1 % (0-1); EOSINOPHILS # (AUTO) 0.18 x10^3/uL (0-0.4); EOSINOPHILS % (AUTO) 3 % (1-7); LYMPHOCYTES # (AUTO) 1.96 x10^3/uL (1-3.4); LYMPHOCYTES % (AUTO) 33 % (22-44); MD SCAN; MONOCYTES # (AUTO) 0.36 x10^3/uL (0.2-0.8); MONOCYTES % (AUTO) 6 % (2-9); NEUTROPHILS % (AUTO) 58 % (42-75)
--- NOTE | 2019-08-25 21:13 | NUR ---
ALL RESULTS ARE BACK AT THIS TIME. CHART UP FOR RECHECK.
--- NOTE | 2019-08-25 21:55 | NUR ---
URINE COLLECTED VIA STRAIGHT CATH AND TAKEN TO LAB. MEDS ADMIN PER PT AT CT.
[2019-08-25 22:00] LABS: MICROSCOPIC AUTO
[2019-08-25] MEDS ORDERED: OMNIPAQUE 350 MG/ML, 100ML BOTTLE ONE (22:12)
--- NOTE | 2019-08-25 22:23 | NUR ---
ALL RESULTS ARE BACK AT THIS TIME. CHART UP FOR RECHECK.
[2019-08-25] MEDS ORDERED: LEVOFLOXACIN/PMX 750MG/150ML 150 ML ONE (22:37)
--- NOTE | 2019-08-25 22:51 | NUR ---
IV ABX RUNNING PER APR. PT ALLERGY TO CIPRO WITH RASHES. PER MD MAN TO GIVE LEVAQUIN ORDERED. PT RESTING ON Workday, PLAYING ON PHONE.
--- NOTE | 2019-08-25 22:57 | NUR ---
received report from JORGE Ortega. antibiotic infusing.
--- NOTE | 2019-08-25 22:57 | NUR ---
REPORT GIVEN TO KATIE PATEL
[2019-08-25] MEDS ORDERED: LEVOFLOXACIN/PMX 750MG/150ML 150 ML IV ONE (23:00)
--- NOTE | 2019-08-25 23:29 | NUR ---
so far no reaction to levaquin.
[2019-08-25] MEDS ORDERED: LEVOFLOXACIN MC SCH (23:30)
[2019-08-26 00:31] VITALS: BP 124/80
== END 2019-08-26 00:48 | disposition home or self-care (01) ==
LOC: ED 21:12
DX: N10 Acute pyelonephritis (principal); N20.0 Calculus of kidney; R00.0 Tachycardia, unspecified
CPT/HCPCS: 36415; 74177; 76770; 80048; 81001; 81025; 85025; 87077; 87086; 96365; 96375; 96376; 99285; J1956; J2270; J2405; Q9967; 87186

== ENCOUNTER 2019-08-28 13:21 | Emergency (ER) | payer MEDICAID ==
[~2019-08-28] VITALS: Ht 149.9 cm; Wt 61.6 kg
--- NOTE | 2019-08-28 15:08 | NUR ---
WARP PICKER: PT AMBULATORY TO ROOM FROM LOBBY
[2019-08-28] MEDS ORDERED: ONDANSETRON 2MG/ML, 2ML IVPush ONE (15:30)
[2019-08-28] MEDS ORDERED: SODIUM CHLORIDE 0.9% 1,000ML IVBOLUS ONE (15:30)
[2019-08-28] MEDS ORDERED: SODIUM CHLORIDE FLUSH 10ML SYR IVF ONE (15:30)
--- NOTE | 2019-08-28 15:34 | NUR ---
first contact with pt. Pt diagnosed with pylenoephritis, pt reports that she is still having alot of pain in her lower right quadrant and right flank area with nausea. pt's aox4. resps even and unlabored. bp/spo2 monitors in place. call light within reach.
--- NOTE | 2019-08-28 15:35 | NUR ---
pt amb to br with steady gait. urine cup given.
[2019-08-28] MEDS ORDERED: ONDANSETRON 2MG/ML, 2ML ONE (15:38)
[2019-08-28] MEDS ORDERED: MORPHINE SULFATE 4 MG/ML, 1ML ONE ×2 (15:38→17:49)
[2019-08-28 15:40] LABS: MEAN CORPUSCULAR HEMOGLOBIN 22.1 pg (27.0-34.8); MEAN CORPUSCULAR HGB CONC 30.5 g/dL (32.4-35.8); MEAN CORPUSCULAR VOLUME 72.6 fL (80-100); MEAN PLATELET VOLUME 8.7 fL (7.4-10.4); PLATELET COUNT 322 x10^3/uL (130-400); RED BLOOD COUNT 3.69 x10^6/uL (3.82-5.3); RED CELL DISTRIBUTION WIDTH 18.3 % (9.6-15.2)
--- NOTE | 2019-08-28 15:43 | NUR ---
us at bedside at this time.
--- NOTE | 2019-08-28 15:43 | NUR ---
urine collected. ua sent.
[2019-08-28 15:45] LABS: ALBUMIN 3.8 g/dL (3.4-5.0); ANION GAP 6 mmol/L (5-15); CALCIUM 8.5 mg/dL (8.5-10.1); CHLORIDE 111 mmol/L (98-107); CREATININE 0.69 mg/dL (0.55-1.02)
[2019-08-28 15:58] LABS: BASOPHILS # (AUTO) 0.02 x10^3/uL (0-0.1); BASOPHILS % (AUTO) 0 % (0-1); EOSINOPHILS # (AUTO) 0.14 x10^3/uL (0-0.4); EOSINOPHILS % (AUTO) 3 % (1-7); LYMPHOCYTES # (AUTO) 1.61 x10^3/uL (1-3.4); LYMPHOCYTES % (AUTO) 30 % (22-44); MD SCAN; MONOCYTES # (AUTO) 0.15 x10^3/uL (0.2-0.8); MONOCYTES % (AUTO) 3 % (2-9); NEUTROPHILS # (AUTO) 3.41 x10^3/uL (1.8-6.8); NEUTROPHILS % (AUTO) 64 % (42-75)
[2019-08-28] MEDS: MORPHINE SULFATE 4 MG/ML, 1ML IVPush PRN ×2 (16:04→17:51)
--- NOTE | 2019-08-28 16:08 | NUR ---
piv est on l wrist with no complications. pt medicated per emar. pt tolerated well. ns infusing at this time.
[2019-08-28 16:23] LABS: MICROSCOPIC INDICATED
[2019-08-28] MEDS ORDERED: NITROFURANTOIN (MACROBID) 100 MG CAPSULE ONE (16:56)
--- NOTE | 2019-08-28 17:01 | NUR ---
pt medicated per emar. pt tolerated well.
--- NOTE | 2019-08-28 17:52 | NUR ---
ppt medicated per emar for pain. pt tolerated well. pt's aox4. resps even and unlabored.
[2019-08-28 17:57] VITALS: BP 126/73
[2019-08-28] MEDS ORDERED: NITROFURANTOIN (MACROBID) 100 MG CAPSULE PO ONE (18:00)
--- NOTE | 2019-08-28 18:04 | NUR ---
Patient given discharge instructions and they have confirmed that they understand the instructions. Patient ambulatory with steady gait.
== END 2019-08-28 18:05 | disposition home or self-care (01) ==
LOC: ED 16:26
DX: N30.01 Acute cystitis with hematuria (principal)
CPT/HCPCS: 36415; 74018; 76770; 80048; 81001; 82040; 84703; 85025; 87077; 87086; 96374; 96375; 96376; 99285; J2270; J2405; J7030; 87186

== ENCOUNTER 2019-10-13 13:49 | Emergency (ER) | payer MEDICAID ==
[~2019-10-13] VITALS: Ht 149.9 cm; Wt 61.6 kg
--- NOTE | 2019-10-13 14:57 | NUR ---
PT TO ROOM 22 W/ C/O RLQ ABD PAIN STARTED LAST NIGHT. PT STATES SOME WEAKNESS SINCE AND NAUSEA. PT RESTING ON GURNEY. NADN. PIV INITIATED.
[2019-10-13] MEDS ORDERED: ONDANSETRON 2MG/ML, 2ML ONE (15:27)
[2019-10-13] MEDS ORDERED: ONDANSETRON 2MG/ML, 2ML IVPush ONE (15:30)
[2019-10-13] MEDS ORDERED: SODIUM CHLORIDE FLUSH 10ML SYR IVF ONE (15:30)
[2019-10-13] MEDS ORDERED: SODIUM CHLORIDE 0.9% 1,000ML IVBOLUS ONE (15:30)
[2019-10-13 15:43] LABS: MICROSCOPIC AUTO
--- NOTE | 2019-10-13 15:50 | NUR ---
PT RESTING ON GURNEY. NADN. GOMEZ.
[2019-10-13 15:52] LABS: ALANINE AMINOTRANSFERASE 16 U/L (12-78); ALBUMIN 3.6 g/dL (3.4-5.0); ANION GAP 5 mmol/L (5-15); CALCIUM 9.2 mg/dL (8.5-10.1); CHLORIDE 109 mmol/L (98-107); CREATININE 0.77 mg/dL (0.55-1.02)
[2019-10-13 15:56] LABS: ALKALINE PHOSPHATASE 77 U/L (45-117); BILIRUBIN,TOTAL 0.1 mg/dL (0.2-1.0); TOTAL PROTEIN 7.6 g/dL (6.4-8.2)
[2019-10-13 16:03] LABS: MD YES; MEAN CORPUSCULAR HEMOGLOBIN 21.8 pg (27.0-34.8); MEAN CORPUSCULAR HGB CONC 30.2 g/dL (32.4-35.8); MEAN CORPUSCULAR VOLUME 72.1 fL (80-100); MEAN PLATELET VOLUME 8.7 fL (7.4-10.4); PLATELET COUNT 229 x10^3/uL (130-400); RED BLOOD COUNT 3.67 x10^6/uL (3.82-5.3); RED CELL DISTRIBUTION WIDTH 18.7 % (9.6-15.2)
[2019-10-13 16:18] LABS: BAND#(MANUAL) 0.06 x10^3/uL; BANDS%(MANUAL) 1 % (0-7); EOS#(MANUAL) 0.06 x10^3/uL (0.0-0.4); EOS% (MANUAL) 1 % (1-7); LYMPH#(MANUAL) 1.51 x10^3/uL (1-3.4); LYMPHS% (MANUAL) 26 % (22-44); MONOS#(MANUAL) 0.17 x10^3/uL (0.3-2.7); MONOS% (MANUAL) 3 % (2-9); SEGS% (MANUAL) 69 % (42-75)
[2019-10-13] MEDS ORDERED: METOCLOPRAMIDE 5 MG/ML, 2ML ONE (16:18)
[2019-10-13 16:19] LABS: ANISOCYTOSIS 1+; HYPOCHROMIA 1+; MICROCYTOSIS 1+; OVALOCYTES 1+; STOMATOCYTES 1+
[2019-10-13 16:20] LABS: <PLATELET ESTIMATE> ADEQUATE; <PLT MORPHOLOGY> NORMAL PLT MORPH
[2019-10-13] MEDS ORDERED: METOCLOPRAMIDE 5 MG/ML, 2ML IVPush ONE (16:30)
--- NOTE | 2019-10-13 16:30 | NUR ---
ERP DR. LIVE AT BEDSIDE FOR RE-EVAL AND POC.
--- NOTE | 2019-10-13 16:40 | NUR ---
US AT BEDSIDE.
--- NOTE | 2019-10-13 16:59 | NUR ---
REPORT GIVEN TO JORGE VELEZ.
--- NOTE | 2019-10-13 17:10 | NUR ---
PT RESTING QUIETLY IN GURNEY, AWAKENS EASILY, NO S/S OF DISTRESS. FAMILY MEMBER AT BS.
[2019-10-13] MEDS ORDERED: MORPHINE SULFATE 4 MG/ML, 1ML ONE (17:59)
[2019-10-13] MEDS ORDERED: MORPHINE SULFATE 4 MG/ML, 1ML IVPush ONE (18:00)
--- NOTE | 2019-10-13 18:08 | NUR ---
ERP WAS IN FOR RECHECK. PT MEDICATED FOR RLQ ABD PAIN 08/09 PER ORDERS. UNDERSTANDS POC. STATES FRIEND WILL PICK HER UP.
[2019-10-13 18:30] VITALS: BP 120/82
--- NOTE | 2019-10-13 18:30 | NUR ---
PT STATES MORPHINE WAS EFFECTIVE FOR ABD PAIN. D/C INSTRUCTIONS, MEDS & F/U APPT RV'WD WITH PT, SHE VERBALIZES UNDERSTANDING. PT STATES SHE WILL CALL HER UROLOGIST TOMORROW. RX GIVEN X2. INSTRUCTED NOT TO DRINK OR DRIVE WITH PERCOCET RX. PT AMBULATED OUT OF ED WITH FRIEND WITHOUT DIFFICULTY.
== END 2019-10-13 18:42 | disposition home or self-care (01) ==
LOC: ED 18:06
DX: N13.2 Hydronephrosis with renal and ureteral calculous obstruction (principal); N23 Unspecified renal colic; R31.9 Hematuria, unspecified; N28.1 Cyst of kidney, acquired; Z98.51 Tubal ligation status
CPT/HCPCS: 36415; 76770; 80053; 81001; 83690; 84703; 85025; 87086; 96361; 96374; 96375; 99285; J2270; J2405; J2765; J7030

== ENCOUNTER 2019-10-16 15:23 | Emergency (ER) | payer MEDICAID ==
[~2019-10-16] VITALS: Ht 149.9 cm; Wt 62.1 kg
--- NOTE | 2019-10-16 15:58 | NUR ---
TASK RN: PT SITTING UP IN TL JACKSON NOTED. PT REPORTS BEING SEEN IN ED SEVERAL DAYS AGO AND DIAGNOSED WITH A KIDNEY STONE. RX'D PERCOCET AND ZOFRAN FOR SYMPTOM MANAGEMENT AND ASKED TO FOLLOW UP WITH UROLOGY. ARRIVES TODAY WITH REPORT OF DYSURIA AND CONTINUED PAIN/N/V DESPITE MEDICATIONS. PT HAS NOT YET FOLLOWED UP WITH UROLOGY. UA COLLECTED AND SENT TO LAB. DENIES NEED FOR PAIN/NAUSEA MEDICATIONS AT THIS TIME.
[2019-10-16 16:23] LABS: MICROSCOPIC INDICATED
[2019-10-16 16:39] LABS: ALBUMIN 3.8 g/dL (3.4-5.0); ANION GAP 5 mmol/L (5-15); CALCIUM 8.7 mg/dL (8.5-10.1); CHLORIDE 112 mmol/L (98-107); CREATININE 0.57 mg/dL (0.55-1.02)
[2019-10-16 17:07] LABS: MEAN CORPUSCULAR HEMOGLOBIN 22.1 pg (27.0-34.8); MEAN CORPUSCULAR HGB CONC 30.8 g/dL (32.4-35.8); MEAN CORPUSCULAR VOLUME 71.9 fL (80-100); PLATELET COUNT 295 x10^3/uL (130-400); RED BLOOD COUNT 3.92 x10^6/uL (3.82-5.3); RED CELL DISTRIBUTION WIDTH 19.1 % (9.6-15.2)
[2019-10-16 17:11] LABS: BASOPHILS # (AUTO) 0.03 x10^3/uL (0-0.1); BASOPHILS % (AUTO) 1 % (0-1); EOSINOPHILS # (AUTO) 0.06 x10^3/uL (0-0.4); EOSINOPHILS % (AUTO) 1 % (1-7); LYMPHOCYTES # (AUTO) 1.21 x10^3/uL (1-3.4); LYMPHOCYTES % (AUTO) 22 % (22-44); MD MORPH REVIEW ONLY; MONOCYTES # (AUTO) 0.31 x10^3/uL (0.2-0.8); MONOCYTES % (AUTO) 6 % (2-9); NEUTROPHILS # (AUTO) 3.83 x10^3/uL (1.8-6.8); NEUTROPHILS % (AUTO) 70 % (42-75)
[2019-10-16 17:12] LABS: ANISOCYTOSIS 1+; HYPOCHROMIA 1+; MICROCYTOSIS 1+
[2019-10-16 17:13] LABS: <PLATELET ESTIMATE> ADEQUATE; LARGE PLATELETS 1+; OVALOCYTES 1+
[2019-10-16] MEDS ORDERED: NITROFURANTOIN (MACROBID) 100 MG CAPSULE PO ONE (17:30)
[2019-10-16] MEDS ORDERED: NITROFURANTOIN (MACROBID) 100 MG CAPSULE ONE (17:34)
[2019-10-16] MEDS ORDERED: PROMETHAZINE 25 MG/ML, 1ML ONE (18:18)
[2019-10-16 18:23] VITALS: BP 114/80
--- NOTE | 2019-10-16 18:23 | NUR ---
TASK RN: PT MEDICATED PER EMAR FOR NAUSEA. DC EDUCATIN PROVIDED, PT DEMONSTRATES UNDERSTANDING. WILL DC AFTER OBS POST IM RX
[2019-10-16] MEDS ORDERED: PROMETHAZINE 25 MG/ML, 1ML IM ONE (18:30)
--- NOTE | 2019-10-16 18:30 | NUR ---
TASK RN: PT AMBULATED STEADILY TO DC WITH RN. FAMILY TO TRANSPORT PT HOME.
== END 2019-10-16 18:45 | disposition home or self-care (01) ==
LOC: ED 17:33
DX: N10 Acute pyelonephritis (principal); N39.0 Urinary tract infection, site not specified; Z87.891 Personal history of nicotine dependence
CPT/HCPCS: 36415; 74176; 80048; 81001; 82040; 85025; 87077; 87086; 96372; 99284; J2550; 87186

== ENCOUNTER 2019-11-07 13:07 | Emergency (ER) | payer MEDICAID ==
[~2019-11-07] VITALS: Ht 149.9 cm; Wt 62.3 kg
[2019-11-07] MEDS ORDERED: MORPHINE SULFATE 4 MG/ML, 1ML ONE (13:25)
[2019-11-07] MEDS ORDERED: ONDANSETRON 2MG/ML, 2ML ONE (13:25)
[2019-11-07] MEDS ORDERED: SODIUM CHLORIDE FLUSH 10ML SYR IVF ONE (13:30)
[2019-11-07] MEDS ORDERED: ONDANSETRON 2MG/ML, 2ML IVPush ONE (13:30)
[2019-11-07] MEDS ORDERED: MORPHINE SULFATE 4 MG/ML, 1ML IVPush PRN (13:30)
--- NOTE | 2019-11-07 13:55 | NUR ---
PT CAME IN CO RIGHT SIDED FLANK PAIN THAT STARTED LAST NIGHT. PT STATES SHE WAS RECENTLY TREATED FOR UTI. LABS SENT. US IN WITH PT AT THIS TIME. PT MEDICATED PER APR.
[2019-11-07 14:06] LABS: MEAN CORPUSCULAR HEMOGLOBIN 21.6 pg (27.0-34.8); MEAN CORPUSCULAR VOLUME 72.1 fL (80-100); MEAN PLATELET VOLUME 8.6 fL (7.4-10.4); PLATELET COUNT 301 x10^3/uL (130-400); RED BLOOD COUNT 3.93 x10^6/uL (3.82-5.3); RED CELL DISTRIBUTION WIDTH 18.8 % (9.6-15.2)
[2019-11-07 14:13] LABS: ALANINE AMINOTRANSFERASE 27 U/L (12-78); ANION GAP 6 mmol/L (5-15); CALCIUM 8.6 mg/dL (8.5-10.1); CHLORIDE 109 mmol/L (98-107)
[2019-11-07 14:15] LABS: MICROSCOPIC INDICATED
[2019-11-07 14:18] LABS: ALKALINE PHOSPHATASE 94 U/L (45-117); BILIRUBIN,TOTAL 0.3 mg/dL (0.2-1.0); TOTAL PROTEIN 8.8 g/dL (6.4-8.2)
[2019-11-07 14:23] VITALS: BP 126/77
--- NOTE | 2019-11-07 14:24 | NUR ---
Pt resting, pain 3/10, states no needs at this time. Taken to xray.
[2019-11-07 14:26] LABS: MD YES
[2019-11-07 14:29] LABS: ANISOCYTOSIS 1+; BAND#(MANUAL) 0.04 x10^3/uL; BANDS%(MANUAL) 1 % (0-7); BASOS#(MANUAL) 0.04 x10^3/uL (0-0.1); BASOS% (MANUAL) 1 % (0-1); HYPOCHROMIA 1+; LYMPH#(MANUAL) 1.06 x10^3/uL (1-3.4); LYMPHS% (MANUAL) 24 % (22-44); MICROCYTOSIS 1+; OVALOCYTES 1+; SEG#(MANUAL) 3.26 x10^3/uL (1.8-6.8); SEGS% (MANUAL) 74 % (42-75)
[2019-11-07 14:30] LABS: POLYCHROMASIA 1+; TEAR DROPS 1+
[2019-11-07 14:31] LABS: <PLATELET ESTIMATE> ADEQUATE; <PLT MORPHOLOGY> NORMAL PLT MORPH
== END 2019-11-07 15:48 | disposition home or self-care (01) ==
LOC: ED 15:20
DX: N30.00 Acute cystitis without hematuria (principal); D53.9 Nutritional anemia, unspecified; Z98.51 Tubal ligation status
CPT/HCPCS: 36415; 74018; 76770; 80053; 81001; 83690; 84703; 85025; 87077; 87086; 96374; 96375; 99285; J2270; J2405; 87186

== ENCOUNTER 2019-11-11 19:01 | Inpatient (IN) | payer MEDICAID ==
[~2019-11-11] VITALS: Ht 149.9 cm; Wt 64.5 kg
[2019-11-11] MEDS ORDERED: SODIUM CHLORIDE FLUSH 10ML SYR IVF ONE (19:30)
[2019-11-11] MEDS ORDERED: ONDANSETRON 2MG/ML, 2ML IVPush ONE (19:30)
--- NOTE | 2019-11-11 19:36 | NUR ---
THIS IS A 28 YO FEMALE COMING IN FOR N/V, RLQ ABD PAIN AND RIGHT FLANK PAIN WORSENING OVER THE LAST 4 DAYS. PATIENT WAS SEEN HERE 4 DAYS AGO FOR SAME, DX WITH UTI NADSENT HOME IWTH ABX. SX WORSENING SINCE. RIGHT FLANK AND LQ ABD TENDER TO PLAPATION. MONITORING IN PLACE, VSS, NADN AT THIS TIME. PIV PLACED, LABS DRAWN. CALL LIGHT IN REACH
[2019-11-11 19:40] LABS: MD YES
[2019-11-11] MEDS ORDERED: ONDANSETRON 2MG/ML, 2ML ONE (19:40)
[2019-11-11] MEDS ORDERED: MORPHINE SULFATE 4 MG/ML, 1ML ONE ×3 (19:41→21:14)
[2019-11-11 19:43] LABS: MEAN CORPUSCULAR HEMOGLOBIN 21.8 pg (27.0-34.8); MEAN CORPUSCULAR HGB CONC 30.3 g/dL (32.4-35.8); MEAN PLATELET VOLUME 9.2 fL (7.4-10.4); PLATELET COUNT 237 x10^3/uL (130-400); RED BLOOD COUNT 3.86 x10^6/uL (3.82-5.3); RED CELL DISTRIBUTION WIDTH 19.3 % (9.6-15.2)
[2019-11-11] MEDS: MORPHINE SULFATE 4 MG/ML, 1ML IVPush PRN ×2 (19:45→21:13)
[2019-11-11 19:48] LABS: MICROSCOPIC AUTO
[2019-11-11 19:51] LABS: ALBUMIN 3.8 g/dL (3.4-5.0); ANION GAP 6 mmol/L (5-15); CALCIUM 8.7 mg/dL (8.5-10.1); CHLORIDE 113 mmol/L (98-107)
[2019-11-11 19:57] LABS: ALANINE AMINOTRANSFERASE 18 U/L (12-78); ALKALINE PHOSPHATASE 76 U/L (45-117); BILIRUBIN,TOTAL 0.1 mg/dL (0.2-1.0); TOTAL PROTEIN 8.2 g/dL (6.4-8.2)
[2019-11-11 19:59] LABS: ANISOCYTOSIS 1+; BANDS%(MANUAL) 4 % (0-7); EOS#(MANUAL) 0.15 x10^3/uL (0.0-0.4); EOS% (MANUAL) 2 % (1-7); HYPOCHROMIA 1+; LYMPH#(MANUAL) 1.33 x10^3/uL (1-3.4); LYMPHS% (MANUAL) 18 % (22-44); MICROCYTOSIS 1+; MONOS#(MANUAL) 0.44 x10^3/uL (0.3-2.7); MONOS% (MANUAL) 6 % (2-9); OVALOCYTES 1+; POLYCHROMASIA 1+; SEG#(MANUAL) 5.18 x10^3/uL (1.8-6.8); SEGS% (MANUAL) 70 % (42-75)
[2019-11-11 20:00] LABS: <PLATELET ESTIMATE> ADEQUATE; <PLT MORPHOLOGY> NORMAL PLT MORPH
[2019-11-11] MEDS ORDERED: SODIUM CHLORIDE 0.9% 1,000ML IVBOLUS ONE (20:30)
[2019-11-11] MEDS ORDERED: GENTAMICIN PER PHARMACY MC PRN ×2 (21:00→21:30)
[2019-11-11] MEDS ORDERED: GENTAMICIN IV ONE (21:00)
[2019-11-11] MEDS ORDERED: SODIUM CHLORIDE 0.9% IV ONE (21:00)
--- NOTE | 2019-11-11 21:04 | NUR ---
IV ABX STARTED Addendum: 11/11/19 at 2133 by CARLOS VERIFIED NO NEED FOR CULTURES PRIOR TO ADMIN
[2019-11-11] MEDS ORDERED: PROMETHAZINE 25 MG/ML, 1ML ONE ×2 (21:09→21:14)
--- NOTE | 2019-11-11 21:22 | NUR ---
MEDICATED PER EMAR FOR NAUSEA AND PAIN
[2019-11-11] MEDS ORDERED: ACETAMINOPHEN 325 MG TABLET PO PRN (21:30)
[2019-11-11] MEDS ORDERED: DOCUSATE 100 MG CAPSULE PO PRN (21:30)
[2019-11-11] MEDS ORDERED: PROMETHAZINE 25 MG/ML, 1ML IM ONE (21:30)
[2019-11-11 22:00] LABS: % IRON SATURATION 4 % (20-55); IRON LEVEL 17 mcg/dL (50-170); TOTAL IRON BINDING CAPACITY 449 mcg/dL (250-450)
[2019-11-11] MEDS ORDERED: DIPHENHYDRAMINE 50 MG/ML, 1ML IVPush ONE (22:00)
--- NOTE | 2019-11-11 22:00 | NUR ---
REPORT GIVEN TO JORGE JOHNSTON
[2019-11-11] MEDS ORDERED: DIPHENHYDRAMINE 50 MG/ML, 1ML ONE (22:01)
--- NOTE | 2019-11-11 22:06 | NUR ---
PATIENT C/O ITCHINESS AROUND NECK AND CHEST WITH A SCRATCHY THROAT, RIAN VOGEL NOTIFIED. PATIENT MEDICATED WITH BENADRYL
[2019-11-11] MEDS: SODIUM CHLORIDE 0.9% 1,000 ML IV SCH (22:52)
[2019-11-11] MEDS ORDERED: PHARMACOKINETIC MONITORING MC PRN (23:00)
[2019-11-11] MEDS ORDERED: PHARMACOKINETIC CONSULTATION MC ONE (23:00)
[2019-11-11 23:04] VITALS: BP 119/72
[2019-11-11 23:32] VITALS: BP 118/72
[2019-11-11] MEDS: morphine SULFATE 10 MG/ML, 1ML IVPush PRN (23:41)
[2019-11-12] MEDS: HEPARIN 5,000 UNITS/ML, 1ML SQ SCH ×3 (00:26→15:16)
[2019-11-12] MEDS: ONDANSETRON 2MG/ML, 2ML IVPush PRN ×3 (00:28→22:50)
[2019-11-12 00:40] VITALS: BP 121/80
[2019-11-12] MEDS: SODIUM CHLORIDE 0.9% 1,000 ML IV SCH (03:12)
[2019-11-12] MEDS ORDERED: SODIUM CHLORIDE 0.9% IV SCH (04:00)
[2019-11-12] MEDS ORDERED: GENTAMICIN IV SCH (04:00)
[2019-11-12] MEDS: DIPHENHYDRAMINE 50 MG/ML, 1ML IVPush PRN ×3 (04:05→21:48)
[2019-11-12 06:00] LABS: CHLORIDE 116 mmol/L (98-107)
[2019-11-12 06:18] LABS: MEAN CORPUSCULAR HEMOGLOBIN 21.5 pg (27.0-34.8); MEAN CORPUSCULAR VOLUME 72.9 fL (80-100); MEAN PLATELET VOLUME 9.4 fL (7.4-10.4); PLATELET COUNT 191 x10^3/uL (130-400); RED BLOOD COUNT 3.33 x10^6/uL (3.82-5.3); RED CELL DISTRIBUTION WIDTH 19.4 % (9.6-15.2)
[2019-11-12 06:29] LABS: MEAN CORPUSCULAR HGB CONC 29.5 g/dL (32.4-35.8)
[2019-11-12 06:30] LABS: CALCIUM 7.7 mg/dL (8.5-10.1); CREATININE 0.62 mg/dL (0.55-1.02)
[2019-11-12 06:48] LABS: ANION GAP 7 mmol/L (5-15)
[2019-11-12 08:04] VITALS: BP 121/84
[2019-11-12] MEDS: FERROUS SULFATE 325 MG TABLET PO SCH ×3 (08:10→20:28)
[2019-11-12] MEDS: morphine SULFATE 10 MG/ML, 1ML IVPush PRN ×3 (08:11→22:43)
[2019-11-12 08:12] LABS: BASOPHILS # (AUTO) 0.01 x10^3/uL (0-0.1); BASOPHILS % (AUTO) 0 % (0-1); EOSINOPHILS % (AUTO) 3 % (1-7); LYMPHOCYTES % (AUTO) 27 % (22-44); MD SCAN; MONOCYTES # (AUTO) 0.44 x10^3/uL (0.2-0.8); MONOCYTES % (AUTO) 7 % (2-9); NEUTROPHILS # (AUTO) 3.71 x10^3/uL (1.8-6.8); NEUTROPHILS % (AUTO) 62 % (42-75)
[2019-11-12 09:36] LABS: CALCIUM 7.7 mg/dL (8.5-10.1)
[2019-11-12] MEDS: CEFEPIME 2 GM in DEXTROSE 5% 100 ML IV SCH ×2 (10:10→21:49)
[2019-11-12 12:13] VITALS: BP 112/75
[2019-11-12 19:14] VITALS: BP 112/73
[2019-11-13 00:01] VITALS: BP 107/66
[2019-11-13] MEDS: FERROUS SULFATE 325 MG TABLET PO SCH ×3 (05:40→16:19)
[2019-11-13 06:54] LABS: BASOPHILS # (AUTO) 0.02 x10^3/uL (0-0.1); BASOPHILS % (AUTO) 0 % (0-1); EOSINOPHILS # (AUTO) 0.19 x10^3/uL (0-0.4); EOSINOPHILS % (AUTO) 4 % (1-7); LYMPHOCYTES # (AUTO) 1.32 x10^3/uL (1-3.4); LYMPHOCYTES % (AUTO) 28 % (22-44); MD NO; MEAN CORPUSCULAR HEMOGLOBIN 21.6 pg (27.0-34.8); MEAN CORPUSCULAR HGB CONC 30.1 g/dL (32.4-35.8); MEAN PLATELET VOLUME 8.9 fL (7.4-10.4); MONOCYTES # (AUTO) 0.34 x10^3/uL (0.2-0.8); MONOCYTES % (AUTO) 7 % (2-9); NEUTROPHILS # (AUTO) 2.82 x10^3/uL (1.8-6.8); NEUTROPHILS % (AUTO) 60 % (42-75); PLATELET COUNT 215 x10^3/uL (130-400); RED BLOOD COUNT 3.64 x10^6/uL (3.82-5.3); RED CELL DISTRIBUTION WIDTH 19.4 % (9.6-15.2)
[2019-11-13 07:04] LABS: ANION GAP 7 mmol/L (5-15); CALCIUM 8.4 mg/dL (8.5-10.1); CHLORIDE 108 mmol/L (98-107); CREATININE 0.56 mg/dL (0.55-1.02)
[2019-11-13] MEDS: ONDANSETRON 2MG/ML, 2ML IVPush PRN (07:20)
[2019-11-13] MEDS: morphine SULFATE 10 MG/ML, 1ML IVPush PRN ×2 (07:20→13:43)
[2019-11-13 07:52] VITALS: BP 101/66
[2019-11-13] MEDS: HEPARIN 5,000 UNITS/ML, 1ML SQ SCH ×3 (08:16→16:12)
[2019-11-13] MEDS: DIPHENHYDRAMINE 50 MG/ML, 1ML IVPush PRN (10:01)
[2019-11-13] MEDS: CEFEPIME 2 GM in DEXTROSE 5% 100 ML IV SCH (10:12)
[2019-11-13 13:13] VITALS: BP 106/67
== END 2019-11-13 16:25 | disposition home or self-care (01) | DRG 690 ==
LOC: ED 19:34 → 4NW 22:33
PROVIDERS: ADMIT Family Medicine; ATTEND Family Medicine
DX: N13.6 Pyonephrosis (principal); B96.20 Unspecified Escherichia coli [E. coli] as the cause of diseases classified elsewhere; D50.9 Iron deficiency anemia, unspecified; R00.0 Tachycardia, unspecified; Z87.442 Personal history of urinary calculi; Z87.891 Personal history of nicotine dependence; Z72.89 Other problems related to lifestyle; Z88.6 Allergy status to analgesic agent
CPT/HCPCS: 36415; 74176; 76770; 80048; 80053; 81001; 82310; 83540; 83550; 83970; 84443; 84703; 85025; 87077; 87081; 87086; 87186; G0378; J1644; J2405; J2550; J1200; J1580; J2270; J7030

== ENCOUNTER 2019-11-17 17:57 | Emergency (ER) | payer MEDICAID ==
[~2019-11-17] VITALS: Ht 149.9 cm; Wt 62.3 kg
[2019-11-17 18:00] VITALS: BP 148/87
--- NOTE | 2019-11-17 18:30 | NUR ---
PT STATES THAT SHE WAS DISCHARGED FROM [facility] THIS PAST THURSDAY FOR TREATMENT OF PYELONEPHRITIS, PT STATES HER SYMPTOMS ARE STILL JUST BAD THEY WERE WHEN SHE WAS INITIALLY SEEN. C/O R FLANK PAIN, NAUSEA, INTERMITTENT FEVERS AND CHILLS. CHANGED INTO GOWN, ATTACHED TO MONITORS. PT DENIES ANY CURRENT NEEDS, CALL LIGHT IN REACH.
[2019-11-17] MEDS ORDERED: HYDROcodone/APAP 5/325 TABLET PO ONE (19:00)
[2019-11-17] MEDS ORDERED: SODIUM CHLORIDE 0.9% 1,000ML IVBOLUS ONE (19:00)
[2019-11-17] MEDS ORDERED: SODIUM CHLORIDE FLUSH 10ML SYR IVF ONE (19:00)
[2019-11-17] MEDS ORDERED: ONDANSETRON 2MG/ML, 2ML ONE (19:12)
--- NOTE | 2019-11-17 19:15 | NUR ---
IV STARTED, LABS AND CULTURES DRAWN AND SENT. PT C/O NAUSEA, EMESIS BAG PROVIDED. ERP NOTIFIED. PT MEDICATED PER MAR, FLUIDS INFUSING WITHOUT ISSUE. PT DENIES ANY NEEDS, CALL LIGHT IN REACH. ULTRASOUND NOW AT BEDSIDE.
--- NOTE | 2019-11-17 19:25 | NUR ---
UNABLE TO DO EKG AT THIS TIME. PT IS HAVE AN ULTRASOUND PERFORMED.
[2019-11-17] MEDS ORDERED: ONDANSETRON 2MG/ML, 2ML IVPush ONE (19:30)
[2019-11-17] MEDS ORDERED: ONDANSETRON ODT 4 MG PO ONE (19:30)
[2019-11-17] MEDS ORDERED: HYDROcodone/APAP 5/325 TABLET ONE (19:41)
[2019-11-17 19:43] LABS: ALBUMIN 3.8 g/dL (3.4-5.0); ANION GAP 8 mmol/L (5-15); CALCIUM 8.8 mg/dL (8.5-10.1); CHLORIDE 110 mmol/L (98-107); CREATININE 0.64 mg/dL (0.55-1.02)
[2019-11-17 19:49] LABS: MEAN CORPUSCULAR HEMOGLOBIN 22.1 pg (27.0-34.8); MEAN CORPUSCULAR VOLUME 74.4 fL (80-100); MEAN PLATELET VOLUME 8.8 fL (7.4-10.4); PLATELET COUNT 318 x10^3/uL (130-400); RED BLOOD COUNT 4.21 x10^6/uL (3.82-5.3); RED CELL DISTRIBUTION WIDTH 19.3 % (9.6-15.2)
[2019-11-17 20:05] LABS: MICROSCOPIC INDICATED
[2019-11-17 20:14] LABS: MD YES
[2019-11-17 20:15] LABS: BAND#(MANUAL) 0.54 x10^3/uL; BANDS%(MANUAL) 7 % (0-7); EOS#(MANUAL) 0.15 x10^3/uL (0.0-0.4); EOS% (MANUAL) 2 % (1-7); LYMPH#(MANUAL) 2.31 x10^3/uL (1-3.4); LYMPHS% (MANUAL) 30 % (22-44); MONOS#(MANUAL) 0.46 x10^3/uL (0.3-2.7); MONOS% (MANUAL) 6 % (2-9); SEG#(MANUAL) 4.24 x10^3/uL (1.8-6.8); SEGS% (MANUAL) 55 % (42-75)
[2019-11-17 20:16] LABS: ANISOCYTOSIS 1+; MICROCYTOSIS 1+; POLYCHROMASIA 1+
[2019-11-17 20:17] LABS: <PLATELET ESTIMATE> ADEQUATE; <PLT MORPHOLOGY> NORMAL PLT MORPH; OVALOCYTES 1+
[2019-11-17 20:19] LABS: MEAN CORPUSCULAR HGB CONC 29.6 g/dL (32.4-35.8)
== END 2019-11-17 20:57 | disposition home or self-care (01) ==
LOC: ED 19:39
DX: N10 Acute pyelonephritis (principal); R10.9 Unspecified abdominal pain; R50.9 Fever, unspecified; Z93.6 Other artificial openings of urinary tract status; Z98.51 Tubal ligation status
CPT/HCPCS: 36415; 76770; 80048; 81001; 82040; 83605; 84145; 85025; 87040; 87086; 93005; 96361; 96374; 99285; J2405; J7030

== ENCOUNTER 2019-11-26 22:33 | Emergency (ER) | payer MEDICAID ==
[~2019-11-26] VITALS: Ht 149.9 cm; Wt 62.0 kg
[2019-11-26 22:35] VITALS: BP 138/83
--- NOTE | 2019-11-26 22:40 | NUR ---
PT GIVEN URINE CUP IN TRIAGE
[2019-11-26] MEDS ORDERED: SODIUM CHLORIDE FLUSH 10ML SYR IVF ONE (23:00)
[2019-11-26 23:07] LABS: BASOPHILS # (AUTO) 0.07 x10^3/uL (0-0.1); BASOPHILS % (AUTO) 1 % (0-1); EOSINOPHILS # (AUTO) 0.15 x10^3/uL (0-0.4); EOSINOPHILS % (AUTO) 2 % (1-7); LYMPHOCYTES # (AUTO) 2.34 x10^3/uL (1-3.4); LYMPHOCYTES % (AUTO) 30 % (22-44); MD NO; MEAN CORPUSCULAR HEMOGLOBIN 22.4 pg (27.0-34.8); MEAN CORPUSCULAR HGB CONC 30.2 g/dL (32.4-35.8); MEAN PLATELET VOLUME 8.9 fL (7.4-10.4); MONOCYTES # (AUTO) 0.43 x10^3/uL (0.2-0.8); MONOCYTES % (AUTO) 6 % (2-9); NEUTROPHILS # (AUTO) 4.88 x10^3/uL (1.8-6.8); NEUTROPHILS % (AUTO) 62 % (42-75); PLATELET COUNT 428 x10^3/uL (130-400); RED BLOOD COUNT 4.22 x10^6/uL (3.82-5.3); RED CELL DISTRIBUTION WIDTH 20.9 % (9.6-15.2)
[2019-11-26 23:18] LABS: ALANINE AMINOTRANSFERASE 25 U/L (12-78); ALBUMIN 4.3 g/dL (3.4-5.0); ANION GAP 7 mmol/L (5-15); CALCIUM 9.3 mg/dL (8.5-10.1); CHLORIDE 108 mmol/L (98-107); CREATININE 0.81 mg/dL (0.55-1.02)
[2019-11-26 23:20] LABS: ALKALINE PHOSPHATASE 78 U/L (45-117); BILIRUBIN,TOTAL 0.3 mg/dL (0.2-1.0); TOTAL PROTEIN 9.3 g/dL (6.4-8.2)
--- NOTE | 2019-11-26 23:36 | NUR ---
CT PENDING HCG.
--- NOTE | 2019-11-27 00:53 | NUR ---
Note liane in EDM - 11/27/19 at 0054 by EDNA PT AMBULATES FROM LOBBY TO ROOM WITH STEADY GAIT. PT VERBALIZES UNDERSTANDING OF ER PROCESS AND POC. PT GIVEN HOSPITAL GOWN AND INSTRUCTED TO CHANGE AT THIS TIME. PT STATES SHE IS UNABLE TO VOID AT THE MOMENT BUT VERBALIZES UNDERSTANDING OF NEED FOR UA WHEN POSSIBLE. CALL LIGHT IS WITHIN REACH.
--- NOTE | 2019-11-27 01:09 | NUR ---
STILL WAITING FOR HCG RESULT FOR CT.
[2019-11-27 02:04] LABS: HCG UR SG 1.024 (1.003-1.030)
[2019-11-27] MEDS ORDERED: ONDANSETRON 2MG/ML, 2ML ONE (02:05)
[2019-11-27] MEDS ORDERED: HYDROmorphone 1 MG/ML, 1ML INJ ONE (02:05)
[2019-11-27 02:11] LABS: MICROSCOPIC INDICATED
[2019-11-27] MEDS ORDERED: ONDANSETRON 2MG/ML, 2ML IVPush ONE (02:30)
[2019-11-27] MEDS ORDERED: HYDROmorphone 2 MG/ML, 1ML IVPush PRN (02:30)
[2019-11-27] MEDS ORDERED: ONDANSETRON ODT 4 MG PO ONE (03:00)
[2019-11-27] MEDS ORDERED: HYDROmorphone 2 MG/ML, 1ML IM ONE (03:00)
--- NOTE | 2019-11-27 03:00 | NUR ---
UNABLE TO OBTAIN IV AFTER MULTIPLE ATTEMPTS VIA 3 RNS. NOTIFIED. COMPUTER DESIGNER PENDING CHANGE OF ROUTE.
[2019-11-27] MEDS ORDERED: ONDANSETRON ODT 4 MG ONE (03:08)
== END 2019-11-27 04:48 | disposition home or self-care (01) ==
LOC: ED 11-27 03:53
DX: N30.00 Acute cystitis without hematuria (principal); N20.1 Calculus of ureter; R10.9 Unspecified abdominal pain
CPT/HCPCS: 36415; 74176; 80053; 81001; 81025; 85025; 87086; 96372; 99284; J1170; Q0162

== ENCOUNTER 2019-12-02 19:14 | Emergency (ER) | payer MEDICAID ==
[~2019-12-02] VITALS: Ht 149.9 cm; Wt 63.3 kg
[2019-12-02] MEDS ORDERED: HYDROmorphone 1 MG/ML, 1ML INJ IM ONE (20:30)
[2019-12-02] MEDS ORDERED: ONDANSETRON ODT 4 MG PO ONE (20:30)
[2019-12-02] MEDS ORDERED: HYDROmorphone 2 MG/ML, 1ML ONE (20:36)
[2019-12-02] MEDS ORDERED: ONDANSETRON ODT 4 MG ONE (20:36)
[2019-12-02 20:56] LABS: ALBUMIN 3.9 g/dL (3.4-5.0); ANION GAP 6 mmol/L (5-15); CALCIUM 8.8 mg/dL (8.5-10.1); CHLORIDE 110 mmol/L (98-107)
[2019-12-02 20:57] LABS: BASOPHILS # (AUTO) 0.19 x10^3/uL (0-0.1); BASOPHILS % (AUTO) 3 % (0-1); EOSINOPHILS # (AUTO) 0.13 x10^3/uL (0-0.4); EOSINOPHILS % (AUTO) 2 % (1-7); LYMPHOCYTES # (AUTO) 1.99 x10^3/uL (1-3.4); LYMPHOCYTES % (AUTO) 29 % (22-44); MD NO; MEAN CORPUSCULAR HEMOGLOBIN 22.6 pg (27.0-34.8); MEAN CORPUSCULAR HGB CONC 30.5 g/dL (32.4-35.8); MEAN PLATELET VOLUME 8.9 fL (7.4-10.4); MONOCYTES # (AUTO) 0.47 x10^3/uL (0.2-0.8); MONOCYTES % (AUTO) 7 % (2-9); NEUTROPHILS # (AUTO) 4.15 x10^3/uL (1.8-6.8); NEUTROPHILS % (AUTO) 60 % (42-75); PLATELET COUNT 366 x10^3/uL (130-400); RED BLOOD COUNT 3.77 x10^6/uL (3.82-5.3); RED CELL DISTRIBUTION WIDTH 20.8 % (9.6-15.2)
[2019-12-02 21:10] LABS: MICROSCOPIC AUTO
[2019-12-02 22:32] VITALS: BP 132/64
== END 2019-12-02 22:35 | disposition home or self-care (01) ==
LOC: ED 22:27
DX: N39.0 Urinary tract infection, site not specified (principal); R10.9 Unspecified abdominal pain; Z98.51 Tubal ligation status; Z87.891 Personal history of nicotine dependence
CPT/HCPCS: 36415; 80048; 81001; 82040; 85025; 87086; 87106; 96372; 99283; J1170; Q0162

== ENCOUNTER 2019-12-15 13:06 | Inpatient (IN) | payer MEDICAID ==
[~2019-12-15] VITALS: Ht 149.9 cm; Wt 65.1 kg
--- NOTE | 2019-12-15 13:12 | NUR ---
DEVELOPER DESIGNER: URINE CUP AND CLEAN CATCH INSTRUCTIONS PROVIDED TO PT.
[2019-12-15] MEDS ORDERED: ONDANSETRON 2MG/ML, 2ML ONE ×2 (14:12→20:11)
[2019-12-15] MEDS ORDERED: MORPHINE SULFATE 4 MG/ML, 1ML ONE ×2 (14:14→15:32)
--- NOTE | 2019-12-15 14:15 | NUR ---
REPORT RECEIVED FROM YURY PATEL. THIS IS A 29 YO F W/ C/O RLQ ABD PAIN, N/V SINCE LAST NIGHT. PT HAS HX OF RECURRENT KIDNEY INFT. PT WAS RECENTLY ADMITTED FOR SAME. PIV STARTED AND LABS DRAWN BY YURY PATEL. PT RESTING ON GURNEY W/ CALL LIGHT IN REACH AND SIDE RAILS UPX2, NADN.
[2019-12-15] MEDS: MORPHINE SULFATE 4 MG/ML, 1ML IVPush PRN ×2 (14:20→15:34)
[2019-12-15 14:25] LABS: MICROSCOPIC AUTO
--- NOTE | 2019-12-15 14:25 | NUR ---
PT MEDICATED PER EMAR, PT DESAT TO 85% RA AFTER MEDS. PLACED ON 2L W/ DESIRED EFFECT. PT RESTING ON GURNEY W/ CALL LIGHT IN REACH, SIDE RAILS UPX2. RESP EVEN AND UNLABORED, ADAM.
[2019-12-15] MEDS ORDERED: SODIUM CHLORIDE FLUSH 10ML SYR IVF ONE (14:30)
[2019-12-15] MEDS ORDERED: SODIUM CHLORIDE 0.9% 1,000ML IVBOLUS ONE (14:30)
[2019-12-15] MEDS ORDERED: ONDANSETRON 2MG/ML, 2ML IVPush ONE (14:30)
[2019-12-15 14:50] LABS: BASOPHILS % (AUTO) 1 % (0-1); EOSINOPHILS % (AUTO) 1 % (1-7); LYMPHOCYTES % (AUTO) 22 % (22-44); MEAN PLATELET VOLUME 8.9 fL (7.4-10.4); MONOCYTES % (AUTO) 5 % (2-9); NEUTROPHILS % (AUTO) 71 % (42-75); PLATELET COUNT 263 x10^3/uL (130-400); RED BLOOD COUNT 3.88 x10^6/uL (3.82-5.3); RED CELL DISTRIBUTION WIDTH 20.2 % (9.6-15.2)
[2019-12-15 14:57] LABS: ALANINE AMINOTRANSFERASE 17 U/L (12-78); ALBUMIN 4.1 g/dL (3.4-5.0); ANION GAP 4 mmol/L (5-15); CALCIUM 8.7 mg/dL (8.5-10.1); CHLORIDE 107 mmol/L (98-107); CREATININE 0.69 mg/dL (0.55-1.02)
[2019-12-15 15:02] LABS: ALKALINE PHOSPHATASE 90 U/L (45-117); BILIRUBIN,TOTAL 0.3 mg/dL (0.2-1.0); TOTAL PROTEIN 8.6 g/dL (6.4-8.2)
[2019-12-15 15:27] LABS: MD MORPH REVIEW ONLY; MEAN CORPUSCULAR HGB CONC 29.7 g/dL (32.4-35.8)
[2019-12-15 15:29] LABS: ANISOCYTOSIS 2+; MICROCYTOSIS 1+
[2019-12-15 15:30] LABS: HYPOCHROMIA 1+; OVALOCYTES 1+; POLYCHROMASIA 1+; STOMATOCYTES 1+
[2019-12-15 15:31] LABS: <PLATELET ESTIMATE> ADEQUATE; LARGE PLATELETS 1+
--- NOTE | 2019-12-15 15:37 | NUR ---
PT HAS C/O RETURN OF PAIN. PT MEDICATED PER EMAR. PT RESTING ON GURNEY, TALKING ON THE PHONE W/ CALL LIGHT IN REACH, VSS, TLN.
--- NOTE | 2019-12-15 16:51 | NUR ---
PT RESTING ON GURNEY W/ CALL LIGHT IN REACH, SIDE RAILS UPX2. RESP EVEN AND UNLABORED, NADN. AWAITING US.
--- NOTE | 2019-12-15 17:07 | NUR ---
TELEPHONE CALL TO US REGARDING DELAY. STATES THEY ARE SENDNING TECH OVER NOW.
[2019-12-15] MEDS ORDERED: PROCHLORPERAZINE 5 MG/ML, 2ML ONE (17:33)
--- NOTE | 2019-12-15 17:41 | NUR ---
PT MEDICATED PER EMAR. PT AMBULATED TO THE BR W/ A STEADY GAIT. VSS, NADN.
[2019-12-15] MEDS ORDERED: PROCHLORPERAZINE 5 MG/ML, 2ML IV ONE (18:00)
--- NOTE | 2019-12-15 18:47 | NUR ---
SPOKE W/ , BLOOD CULTURES NOT INDICATED AT THIS TIME. STATES OK TO HANG ABX.
--- NOTE | 2019-12-15 18:54 | NUR ---
TELEPHONE CALL FROM PHARMACY REGARDING UNASYN, STATES THERE IS A CROSS SENSITIVITY, WILL UPDATE MD TO VERIFY ORDER.
--- NOTE | 2019-12-15 18:57 | NUR ---
REPORT GIVEN TO LILIA PATEL, UPDATED ON ABX CROSS SENSITIVITY WILL NOTIFY MD. PT RESTING ON GURNEY W/ CALL LIGHT IN REACH, RESP EVEN AND UNLABORED, NADN. AWAITING ADMIT.
[2019-12-15] MEDS ORDERED: AMPICILLIN/SULBACTAM 3 GM in SODIUM CHLORIDE 0.9% 100 ML IV ONE (19:00)
[2019-12-15] MEDS ORDERED: FENTANYL PF 100 MCG/2ML ONE (19:31)
[2019-12-15] MEDS ORDERED: MIDAZOLAM 1 MG/ML, 2ML ONE (19:31)
[2019-12-15] MEDS ORDERED: AMPICILLIN/SULBACTAM 3 GM ONE (19:50)
[2019-12-15] MEDS ORDERED: OXYcodone 5 MG/5 ML ORAL.SOL UDC PO PRN (20:00)
[2019-12-15] MEDS ORDERED: MEPERIDINE/PF 25MG/0.5ML IVPush PRN (20:00)
[2019-12-15] MEDS ORDERED: LABETALOL 5MG/ML, 20ML IV PRN (20:00)
[2019-12-15] MEDS ORDERED: HYDROmorphone 1 MG/ML, 1ML INJ IVPush PRN (20:00)
[2019-12-15] MEDS ORDERED: ALBUTEROL SULFATE 2.5 MG/3 ML NPPB PRN (20:00)
[2019-12-15] MEDS ORDERED: ACETAMINOPHEN 325 MG TABLET PO PRN (20:00)
[2019-12-15] MEDS ORDERED: PROMETHAZINE 25 MG/ML, 1ML IVPush PRN (20:00)
[2019-12-15] MEDS ORDERED: FENTANYL PF 100 MCG/2ML IV PRN (20:00)
[2019-12-15] MEDS ORDERED: LORazepam 2 MG/ML, 1ML IVPush PRN (20:00)
[2019-12-15] MEDS ORDERED: ONDANSETRON 2MG/ML, 2ML IVPush PRN (20:00)
[2019-12-15] MEDS ORDERED: BISACODYL 10 MG SUPP PR PRN (20:00)
[2019-12-15] MEDS ORDERED: GENTAMICIN 80 MG/2 ML ONE ×5 (20:05→20:06)
[2019-12-15] MEDS ORDERED: CEFAZOLIN 1,000 MG ONE (20:11)
[2019-12-15] MEDS ORDERED: SUCCINYLCHOLINE 20 MG/ML, 10ML ONE (20:11)
[2019-12-15] MEDS ORDERED: LIDOCAINE-MPF 2% ,5ML ONE (20:11)
[2019-12-15] MEDS ORDERED: ROCURONIUM 10MG/ML,5ML ONE (20:11)
[2019-12-15] MEDS ORDERED: DEXAMETHASONE 4 MG/ML, 1ML ONE (20:11)
[2019-12-15] MEDS ORDERED: PROPOFOL 10 MG/ML, 20ML ONE (20:11)
[2019-12-15] MEDS ORDERED: [UNRECOGNIZED DRUG - REMARK] XX ONE (21:00)
[2019-12-15 22:00] VITALS: BP 110/60
[2019-12-16 00:14] VITALS: BP 103/67
[2019-12-16] MEDS: AMPICILLIN/SULBACTAM 3 GM in SODIUM CHLORIDE 0.9% 100 ML IV SCH ×4 (01:47→19:37)
[2019-12-16] MEDS: SODIUM CHLORIDE 0.9% 1,000 ML IV SCH ×2 (01:47→13:05)
[2019-12-16] MEDS: morphine SULFATE 10 MG/ML, 1ML IVPush PRN ×3 (01:55→14:17)
[2019-12-16 04:01] VITALS: BP 95/60
[2019-12-16 04:55] LABS: BASOPHILS % (AUTO) 0 % (0-1); EOSINOPHILS % (AUTO) 0 % (1-7); LYMPHOCYTES % (AUTO) 6 % (22-44); MEAN CORPUSCULAR HEMOGLOBIN 22.2 pg (27.0-34.8); MEAN PLATELET VOLUME 8.5 fL (7.4-10.4); MONOCYTES % (AUTO) 1 % (2-9); NEUTROPHILS % (AUTO) 93 % (42-75); PLATELET COUNT 211 x10^3/uL (130-400); RED BLOOD COUNT 3.43 x10^6/uL (3.82-5.3); RED CELL DISTRIBUTION WIDTH 19.7 % (9.6-15.2)
[2019-12-16 05:00] LABS: MEAN CORPUSCULAR HGB CONC 29.9 g/dL (32.4-35.8)
[2019-12-16 05:02] LABS: ANION GAP 7 mmol/L (5-15); CALCIUM 8.2 mg/dL (8.5-10.1); CHLORIDE 110 mmol/L (98-107); CREATININE 0.55 mg/dL (0.55-1.02)
[2019-12-16 05:54] LABS: MD SCAN
[2019-12-16 06:37] VITALS: BP 99/62
[2019-12-16] MEDS: OXYBUTYNIN CHLORIDE 5 MG TABLET PO PRN ×2 (13:01→20:57)
[2019-12-16 13:05] VITALS: BP 123/73
[2019-12-16] MEDS: FERROUS SULFATE 325 MG TABLET PO SCH (17:39)
[2019-12-16] MEDS: OXYcodone IR 5MG TABLET PO PRN ×2 (18:44→22:46)
[2019-12-16 19:17] VITALS: BP 106/65
[2019-12-16] MEDS ORDERED: FLU VACC QS2020-21(6MOS UP)/PF 60MCG/0.5 ML SYR IM ONE (20:45)
[2019-12-17] MEDS ORDERED: OXYcodone/APAP 5/325MG TABLET ONE (00:21)
[2019-12-17] MEDS: OXYcodone/APAP 5/325MG TABLET PO PRN ×2 (00:22→06:48)
[2019-12-17] MEDS ORDERED: MORPHINE SULFATE 4 MG/ML, 1ML IVPush ONE (01:20)
[2019-12-17] MEDS: AMPICILLIN/SULBACTAM 3 GM in SODIUM CHLORIDE 0.9% 100 ML IV SCH ×2 (01:42→08:10)
[2019-12-17 01:46] VITALS: BP 117/77
[2019-12-17] MEDS: OXYcodone IR 5MG TABLET PO PRN (02:39)
[2019-12-17] MEDS: OXYBUTYNIN CHLORIDE 5 MG TABLET PO PRN (06:48)
[2019-12-17 06:52] VITALS: BP 119/80
[2019-12-17] MEDS: FERROUS SULFATE 325 MG TABLET PO SCH ×2 (08:10→11:06)
[2019-12-17] MEDS ORDERED: OXYcodone IR 5MG TABLET PO PRN ×2 (08:30→09:00)
[2019-12-17] MEDS ORDERED: OXYB10TA26 PO ×3 (11:01→11:03)
[2019-12-17] MEDS ORDERED: OXYC5TAB3 PO (11:01)
[2019-12-17] MEDS ORDERED: AMOX1TAB64 PO (11:01)
== END 2019-12-17 13:01 | disposition home or self-care (01) | DRG 661 ==
LOC: ED 14:31 → EDIP 18:41 → 4NE 21:53
PROVIDERS: ADMIT Family Medicine; ATTEND Hospitalist
PROC: BT1D1ZZ Fluoroscopy of Right Kidney, Ureter and Bladder using Low Osmolar Contrast (ICD-10-PCS; 2019-12-15)
PROC: 0T768DZ Dilation of Right Ureter with Intraluminal Device, Via Natural or Artificial Opening Endoscopic (ICD-10-PCS; principal; 2019-12-15 19:15)
DX: N13.6 Pyonephrosis (principal); Z20.828 Contact with and (suspected) exposure to other viral communicable diseases; D50.9 Iron deficiency anemia, unspecified; Z87.442 Personal history of urinary calculi; Z87.891 Personal history of nicotine dependence; Z98.51 Tubal ligation status; Z88.1 Allergy status to other antibiotic agents; Z88.8 Allergy status to other drugs, medicaments and biological substances
CPT/HCPCS: 36415; J3490; 76770; 80048; 80053; 81001; 83690; 84703; 85025; 87077; 87086; 87186; 87635; 90686; G0378; J0295; J0690; J1100; J2250; J2405; J2704; J3010; C2617; J0330; J0780; J1580; J2270; J7030

== ENCOUNTER 2019-12-21 21:46 | Emergency (ER) | payer MEDICAID ==
[~2019-12-21] VITALS: Ht 149.9 cm; Wt 61.7 kg
[~2019-12-21 21:46] MED LIST changes: +AMOX1TAB64 PO; +OXYB10TA26 PO; +OXYC5TAB3 PO
[2019-12-21] MEDS ORDERED: MORPHINE SULFATE 4 MG/ML, 1ML ONE (22:14)
[2019-12-21] MEDS ORDERED: ONDANSETRON 2MG/ML, 2ML ONE (22:14)
[2019-12-21 22:24] LABS: BASOPHILS % (AUTO) 2 % (0-1); EOSINOPHILS % (AUTO) 2 % (1-7); LYMPHOCYTES % (AUTO) 23 % (22-44); MEAN CORPUSCULAR HEMOGLOBIN 22.3 pg (27.0-34.8); MEAN PLATELET VOLUME 8.7 fL (7.4-10.4); MONOCYTES % (AUTO) 9 % (2-9); NEUTROPHILS % (AUTO) 65 % (42-75); PLATELET COUNT 325 x10^3/uL (130-400); RED BLOOD COUNT 3.96 x10^6/uL (3.82-5.3); RED CELL DISTRIBUTION WIDTH 20.6 % (9.6-15.2)
[2019-12-21 22:29] LABS: MD NO
[2019-12-21] MEDS ORDERED: SODIUM CHLORIDE FLUSH 10ML SYR IVF ONE (22:30)
[2019-12-21] MEDS ORDERED: ONDANSETRON 2MG/ML, 2ML IVPush ONE (22:30)
[2019-12-21] MEDS ORDERED: MORPHINE SULFATE 4 MG/ML, 1ML IVPush PRN (22:30)
[2019-12-21 22:33] LABS: ALANINE AMINOTRANSFERASE 15 U/L (12-78); ALBUMIN 3.5 g/dL (3.4-5.0); ANION GAP 5 mmol/L (5-15); CALCIUM 9.1 mg/dL (8.5-10.1); CHLORIDE 106 mmol/L (98-107)
--- NOTE | 2019-12-21 22:35 | NUR ---
PT HAD "7TH OR 8TH" STENT PLACED ON THURSDAY. THIS STENT PLACED ON RIGHT SIDE. PT STATES SHE STATES PAIN INCREASED TODAY. PT SITTING ON GURNEY, RESPIRATIONS EVEN AND UNLABROED. WORKING TO OBTAIN IV ACCESS.
[2019-12-21 22:38] LABS: ALKALINE PHOSPHATASE 70 U/L (45-117); BILIRUBIN,TOTAL 0.2 mg/dL (0.2-1.0); TOTAL PROTEIN 7.9 g/dL (6.4-8.2)
[2019-12-21 23:23] LABS: MICROSCOPIC INDICATED
[2019-12-21] MEDS ORDERED: OXYcodone/APAP 5/325MG TABLET ONE (23:53)
[2019-12-22] MEDS ORDERED: OXYcodone/APAP 5/325MG TABLET PO ONE
[2019-12-22 01:16] VITALS: BP 127/76
== END 2019-12-22 01:37 | disposition home or self-care (01) ==
LOC: ED 22:36
DX: R10.9 Unspecified abdominal pain (principal); R11.2 Nausea with vomiting, unspecified; R93.5 Abnormal findings on diagnostic imaging of other abdominal regions, including retroperitoneum; Z87.891 Personal history of nicotine dependence
CPT/HCPCS: 36415; 76770; 80053; 81001; 83690; 84703; 85025; 87086; 96374; 96375; 99284; J2270; J2405; 87106

== ENCOUNTER 2019-12-29 19:55 | Emergency (ER) | payer MEDICAID ==
[~2019-12-29] VITALS: Ht 149.9 cm; Wt 61.1 kg
--- NOTE | 2019-12-29 19:55 | NUR ---
MANNYX1
--- NOTE | 2019-12-29 20:00 | NUR ---
NIL X 2
--- NOTE | 2019-12-29 20:21 | NUR ---
NIL X 3
[2019-12-29 21:12] LABS: BASOPHILS % (AUTO) 2 % (0-1); EOSINOPHILS % (AUTO) 2 % (1-7); LYMPHOCYTES % (AUTO) 14 % (22-44); MEAN PLATELET VOLUME 8.5 fL (7.4-10.4); MONOCYTES % (AUTO) 10 % (2-9); NEUTROPHILS % (AUTO) 72 % (42-75); PLATELET COUNT 421 x10^3/uL (130-400); RED BLOOD COUNT 4.28 x10^6/uL (3.82-5.3); RED CELL DISTRIBUTION WIDTH 20.1 % (9.6-15.2)
[2019-12-29 21:19] LABS: ALANINE AMINOTRANSFERASE 20 U/L (12-78); ALBUMIN 3.9 g/dL (3.4-5.0); ANION GAP 5 mmol/L (5-15); CALCIUM 9.4 mg/dL (8.5-10.1); CHLORIDE 109 mmol/L (98-107)
[2019-12-29 21:23] LABS: ALKALINE PHOSPHATASE 73 U/L (45-117); BILIRUBIN,TOTAL 0.2 mg/dL (0.2-1.0); CREATININE 0.77 mg/dL (0.55-1.02); TOTAL PROTEIN 8.9 g/dL (6.4-8.2)
--- NOTE | 2019-12-29 21:31 | NUR ---
US TECH IN ROOM. UA COLLECTED AND SENT
[2019-12-29 21:37] LABS: MEAN CORPUSCULAR HGB CONC 29.9 g/dL (32.4-35.8)
[2019-12-29 21:39] LABS: MD SCAN
[2019-12-29] MEDS ORDERED: MORPHINE SULFATE 4 MG/ML, 1ML ONE (21:45)
[2019-12-29] MEDS ORDERED: ONDANSETRON 2MG/ML, 2ML ONE (21:45)
[2019-12-29 21:51] LABS: MICROSCOPIC INDICATED
[2019-12-29] MEDS ORDERED: SODIUM CHLORIDE 0.9% 1,000ML IVBOLUS ONE (22:00)
[2019-12-29] MEDS ORDERED: ONDANSETRON 2MG/ML, 2ML IVPush ONE (22:00)
[2019-12-29] MEDS: MORPHINE SULFATE 4 MG/ML, 1ML IVPush PRN (22:00)
[2019-12-29] MEDS ORDERED: SODIUM CHLORIDE FLUSH 10ML SYR IVF ONE (22:00)
--- NOTE | 2019-12-29 22:00 | NUR ---
This is a 29 yo female coming in with c/o RLQ abd pain radiating to right flank, starting yesterday with nausea/vomiting, surgery last month for kidney stone. Denies hematuria/dysuria. Denies any other complaints at this time. Monitoring in place, vss, nadn. Call light in reach
[2019-12-30] MEDS ORDERED: ONDANSETRON 2MG/ML, 2ML IVPush ONE
[2019-12-30] MEDS ORDERED: FLUCONAZOLE 100 MG TABLET PO ONE
--- NOTE | 2019-12-30 00:01 | NUR ---
TASK RN: WALKED STRAIGHT CATH UA TO LAB AT THIS TIME. PT TOLERATED WELL.
[2019-12-30] MEDS ORDERED: ONDANSETRON 2MG/ML, 2ML ONE (00:03)
[2019-12-30] MEDS ORDERED: FLUCONAZOLE 100 MG TABLET ONE (00:03)
[2019-12-30] MEDS ORDERED: MORPHINE SULFATE 4 MG/ML, 1ML ONE (00:04)
[2019-12-30] MEDS: MORPHINE SULFATE 4 MG/ML, 1ML IVPush PRN (00:06)
--- NOTE | 2019-12-30 00:11 | NUR ---
TASK RN: PT MEDICATED PER MAR. MONITORING IN PLACE, IVF INFUSING, CALL LIGHT WITHIN REACH. ROOM DIMMED FOR PT COMFORT. PT UPDATED ON POC.
[2019-12-30 00:36] LABS: MICROSCOPIC INDICATED
[2019-12-30 01:20] VITALS: BP 111/70
--- NOTE | 2019-12-30 01:48 | NUR ---
Patient given discharge instructions and they have confirmed that they understand the instructions. Patient ambulatory with steady gait.
== END 2019-12-30 01:56 | disposition home or self-care (01) ==
LOC: ED 21:50
DX: N30.00 Acute cystitis without hematuria (principal); R10.9 Unspecified abdominal pain; R50.9 Fever, unspecified; Z98.51 Tubal ligation status; Z87.891 Personal history of nicotine dependence
CPT/HCPCS: 36415; 76770; 80053; 81001; 84703; 85025; 87086; 96361; 96374; 96375; 96376; 99284; J2270; J2405; J7030; 87106

== ENCOUNTER 2020-01-28 15:20 | Emergency (ER) | payer MEDICAID ==
[~2020-01-28] VITALS: Ht 149.9 cm; Wt 61.4 kg
[2020-01-28] MEDS ORDERED: SODIUM CHLORIDE 0.9% 1,000ML IVBOLUS ONE (16:00)
[2020-01-28 17:13] LABS: BASOPHILS % (AUTO) 1 % (0-1); EOSINOPHILS % (AUTO) 2 % (1-7); LYMPHOCYTES % (AUTO) 28 % (22-44); MEAN CORPUSCULAR HEMOGLOBIN 22.1 pg (27.0-34.8); MEAN CORPUSCULAR HGB CONC 30.3 g/dL (32.4-35.8); MEAN PLATELET VOLUME 8.9 fL (7.4-10.4); MONOCYTES % (AUTO) 7 % (2-9); NEUTROPHILS % (AUTO) 62 % (42-75); PLATELET COUNT 288 x10^3/uL (130-400); RED BLOOD COUNT 4.01 x10^6/uL (3.82-5.3); RED CELL DISTRIBUTION WIDTH 19.9 % (9.6-15.2)
[2020-01-28 17:14] LABS: ALBUMIN 3.8 g/dL (3.4-5.0); ANION GAP 6 mmol/L (5-15); CALCIUM 8.7 mg/dL (8.5-10.1); CHLORIDE 110 mmol/L (98-107); CREATININE 0.73 mg/dL (0.55-1.02)
[2020-01-28 17:16] LABS: MD NO
--- NOTE | 2020-01-28 17:23 | NUR ---
ORDER PICKER: PT AMBULATORY TO ROOM FROM LOBBY
[2020-01-28] MEDS ORDERED: ONDANSETRON 2MG/ML, 2ML ONE ×2 (17:36→18:07)
[2020-01-28] MEDS ORDERED: MORPHINE SULFATE 4 MG/ML, 1ML ONE ×2 (17:36→18:07)
[2020-01-28 17:38] VITALS: BP 135/60
--- NOTE | 2020-01-28 17:40 | NUR ---
UROLOGY JOHN CALLED @174, BRANDING SPECIALIST
--- NOTE | 2020-01-28 17:41 | NUR ---
JUANA ENAMORADO IN ROOM FOR EVAL. PIV EST, NS BOLUS STARTED. HOLD OFF ON UA PARKER CHAVARRIA DECIDES STRAIGHT CATH VS UA. CURRNETLY TAKING CIPRO, 3 DOSES LEFT. R FLANK PAIN, HEMATURIA, DYSURIA. US DONE, LABS BACK, CALL ORELLANA IN REACH.
--- NOTE | 2020-01-28 17:46 | NUR ---
no ua per brynn quigley. as
[2020-01-28] MEDS ORDERED: ONDANSETRON 2MG/ML, 2ML IVPush ONE (18:00)
[2020-01-28] MEDS ORDERED: MORPHINE SULFATE 4 MG/ML, 1ML IVPush ONE (18:00)
[2020-01-28] MEDS ORDERED: OPIUM/BELLADONNA SUPP.RECT 16.2-30 MG PR ONE (18:00)
--- NOTE | 2020-01-28 18:42 | NUR ---
pt calm and cooperative, waiting on med from pharmacy to medicate pt and then dc
== END 2020-01-28 19:27 | disposition home or self-care (01) ==
LOC: ED 18:08
DX: R10.31 Right lower quadrant pain (principal); Z87.891 Personal history of nicotine dependence; Z98.51 Tubal ligation status
CPT/HCPCS: 36415; 76770; 80048; 82040; 85025; 96361; 96374; 96375; 99284; J2270; J2405; J7030

== ENCOUNTER 2020-01-29 15:17 | Inpatient (IN) | payer MEDICAID ==
[~2020-01-29] VITALS: Ht 149.9 cm; Wt 73.1 kg
[2020-01-29 16:22] LABS: BASOPHILS % (AUTO) 1 % (0-1); EOSINOPHILS % (AUTO) 2 % (1-7); LYMPHOCYTES % (AUTO) 22 % (22-44); MEAN CORPUSCULAR HEMOGLOBIN 22.6 pg (27.0-34.8); MEAN CORPUSCULAR HGB CONC 30.7 g/dL (32.4-35.8); MEAN PLATELET VOLUME 8.7 fL (7.4-10.4); MONOCYTES % (AUTO) 7 % (2-9); NEUTROPHILS % (AUTO) 68 % (42-75); PLATELET COUNT 269 x10^3/uL (130-400); RED BLOOD COUNT 3.79 x10^6/uL (3.82-5.3)
[2020-01-29 16:24] LABS: MD NO
[2020-01-29] MEDS ORDERED: ONDANSETRON 2MG/ML, 2ML IVPush ONE ×3 (16:30→21:00)
[2020-01-29] MEDS ORDERED: MORPHINE SULFATE 4 MG/ML, 1ML IVPush ONE (16:30)
[2020-01-29 16:33] LABS: ANION GAP 5 mmol/L (5-15); CALCIUM 9.1 mg/dL (8.5-10.1); CHLORIDE 110 mmol/L (98-107); CREATININE 0.75 mg/dL (0.55-1.02)
[2020-01-29] MEDS ORDERED: ONDANSETRON ODT 4 MG ONE (16:36)
[2020-01-29] MEDS ORDERED: HYDROmorphone 1 MG/ML, 1ML INJ ONE ×3 (16:37→20:43)
--- NOTE | 2020-01-29 16:49 | NUR ---
C/O pain. VSS. Meds admin per order from FIE Tate. Provided with blanket. NAD.
[2020-01-29] MEDS ORDERED: HYDROmorphone 1 MG/ML, 1ML INJ IM ONE (17:00)
[2020-01-29] MEDS ORDERED: ONDANSETRON ODT 4 MG PO ONE (17:00)
[2020-01-29 17:15] LABS: MICROSCOPIC INDICATED
--- NOTE | 2020-01-29 17:24 | NUR ---
Cath UA sent to lab. No other needs.
[2020-01-29 17:47] LABS: MICROSCOPIC INDICATED
--- NOTE | 2020-01-29 18:55 | NUR ---
MD Mamadou at bedside evaluating patient.
[2020-01-29] MEDS ORDERED: SODIUM CHLORIDE 0.9% 1,000ML IVBOLUS ONE (19:00)
[2020-01-29] MEDS ORDERED: ONDANSETRON 2MG/ML, 2ML ONE ×2 (19:07→20:43)
[2020-01-29] MEDS: HYDROmorphone 2 MG/ML, 1ML IVPush PRN (19:10)
--- NOTE | 2020-01-29 19:12 | NUR ---
IV started. NS hung and zofran and dilaudid admin. Patient to CT.
--- NOTE | 2020-01-29 19:45 | NUR ---
Pain improved no needs.
--- NOTE | 2020-01-29 19:54 | NUR ---
Urology at bedside.
[2020-01-29] MEDS ORDERED: PLEASE ENTER HEIGHT AND WEIGHT MC SCH (20:30)
[2020-01-29] MEDS ORDERED: FLUCONAZOLE 200 MG TABLET PO SCH (20:30)
[2020-01-29] MEDS ORDERED: AMPICILLIN/SULBACTAM 3 GM in SODIUM CHLORIDE 0.9% 100 ML IV ONE (20:30)
[2020-01-29] MEDS ORDERED: FLUCONAZOLE 100 MG TABLET ONE (20:31)
[2020-01-29 20:40] LABS: PROTHROMBIN TIME 10.6 Seconds (9.6-11.5)
--- NOTE | 2020-01-29 20:41 | NUR ---
Patrick murray. Diflucan admin. VSS.
[2020-01-29] MEDS ORDERED: HYDROmorphone 1 MG/ML, 1ML INJ IV ONE (21:00)
[2020-01-29] MEDS ORDERED: FLUCONAZOLE 100 MG TABLET PO ONE (21:00)
--- NOTE | 2020-01-29 21:48 | NUR ---
BEDSIDE REPORT FROM OLEKSANDR RN. CARE ASSUMED AT THIS TIME. FIRST CONTACT WITH PT. VSS. DENIES NEED TO USE RESTROOM. CALL LIGHT IN REACH. FALL PRECAUTIONS IN PLACE. A&OX4. FAMILY AT BEDSIDE. PT EATING AND DRINKING MEAL PROVIDED BY FAMILY PER ERP DR. MC AND CIARA ENAMORADO. PT TO BE NPO AT MIDNIGHT, VERBALIZED UNDERSTANDING OF POC. PT MEDICAL HOLD AT THIS TIME IN ER. HOSPITAL BED REQUESTED FOR COMFORT. REPORTS PAIN IMPROVED TO 3/10, REFUSES NEED FOR ADDITIONAL PAIN MEDICATION "I FEEL GOOD." AWAITING ROOM ASSIGNMENT ON FLOOR AND SURGERY/PROCEDURE TOMORROW
[2020-01-29] MEDS ORDERED: ACETAMINOPHEN 325 MG TABLET PO PRN (22:30)
[2020-01-29] MEDS ORDERED: DOCUSATE 100 MG CAPSULE PO PRN (22:30)
--- NOTE | 2020-01-29 22:42 | NUR ---
PT AMBULATED TO RESTROOM WITH STEADY GAIT. RESTING COMFORTABLY. TALKING ON CELL PHONE. VSS. RATES PAIN 2/10, REFUSES NEED FOR ADDITIONAL PAIN MEDICAITON. CALL LIGHT IN REACH. FALL PRECAUTIONS IN PLACE. AWAITING HOSPITAL BED, REQUESTED FOR COMFORT FOR PT.
--- NOTE | 2020-01-29 22:45 | NUR ---
FERROUS SULFATE REQUESTED FROM PHARMACY
--- NOTE | 2020-01-29 22:50 | NUR ---
SEQUENTIAL STOCKINGS REQUESTED FROM [facility]
[2020-01-29] MEDS: FERROUS SULFATE 325 MG TABLET PO SCH (23:45)
--- NOTE | 2020-01-29 23:47 | NUR ---
PT MEDICATED NOTED IN EMAR WITH FERROUS SULFATE. VSS. AMBULATED TO RESTROOM WITH STEADY GAIT. AMBULATED BACK TO ROOM, MOVED TO HOSPITAL BED FROM ED GURASHBY FOR COMFORT. VSS. PT REQUESTING PAIN MEDICATION FOR 5/10 PAIN "THE PAIN IS STARTING TO COME BACK, CAN I GET MORE MEDICINE." TO MEDICATE PER ORDER. CALL LIGHT IN REACH. FALL PRECAUTIONS IN PLACE.
[2020-01-30] MEDS ORDERED: HYDROmorphone 1 MG/ML, 1ML INJ ONE ×5 (00:32→12:11)
[2020-01-30] MEDS ORDERED: ONDANSETRON 2MG/ML, 2ML ONE ×2 (00:33→10:32)
[2020-01-30] MEDS: ONDANSETRON 2MG/ML, 2ML IVPush PRN ×2 (00:36→10:34)
[2020-01-30] MEDS: HYDROmorphone 2 MG/ML, 1ML IVPush PRN ×10 (00:37→22:38)
--- NOTE | 2020-01-30 00:53 | NUR ---
PT MEDICATED NOTED IN EMAR FOR 09/08 RLQ ABD PAIN. PT REQUESTED "1MG DILAUDID LIKE EARLIER BECAUSE IT REALLY HELPED." PT GIVEN 0.5MG DILAUDID START DOSE PER POLICY NOTED AT 0037 AND SECOND 0.5MG 15MIN LATER AT THIS TIME 0053. WILL MONITOR PT RESPONSE AND GIVEN ADDITIONAL MEDICATION IF NEEDED PER ORDER. PT REPORTS IMMEDIATE RELIEF. PT ALSO MEDICATED WITH ZOFRAN PER PT REQUEST WITH PAIN MEDICINE. VSS. CALL LIGHT IN REACH. DENIES NEED TO USE RESTROOM. TALKING ON CELL PHONE. FALL PRECAUTIONS IN PLACE. REMAINS MEDICAL HOLD IN ER
--- NOTE | 2020-01-30 01:15 | NUR ---
BEDSIDE REPORT AND TRANSFER OF CARE AT THIS TIME TO BRYAN RN. PT REPORTS PAIN IMPROVED TO 3-4/10 "SO MUCH BETTER." VSS. CALL LIGHT IN REACH.
--- NOTE | 2020-01-30 02:35 | NUR ---
Pt lying in bed. RN informed the pt that she will remain NPO until after her surgery. Pt verbalized understanding. No needs at this time. JASON. JOHAN.
[2020-01-30] MEDS ORDERED: HYDROmorphone 2 MG/ML, 1ML ONE (04:19)
[2020-01-30] MEDS: AMPICILLIN/SULBACTAM 3 GM in SODIUM CHLORIDE 0.9% 100 ML IV SCH ×3 (04:38→20:06)
--- NOTE | 2020-01-30 05:23 | NUR ---
PT HAVING UNCONTROLLED PAIN. RN HAS GIVEN 7.5MG NORCO PO AND 1.5MG DILAUDID IV. NO RELIEF. PT IN TEARS, COMPLAINING OF NAUSEA/PAIN. RN CALLED DR. PHELAN. DR PHELAN ORDERED TO GIVE REMAINING 0.5MG DILAUDID FOR 2MG ORDER. IF PAIN DOES NOT SUBSIDE. GIVE AN ADDITIONS 1MG DILAUDID IV. ORDERED 12.5MG PHENERGAN IM.
[2020-01-30] MEDS ORDERED: PROMETHAZINE 25 MG/ML, 1ML ONE (05:27)
[2020-01-30] MEDS ORDERED: PROMETHAZINE 25 MG/ML, 1ML IM PRN (05:30)
[2020-01-30 05:41] LABS: BASOPHILS % (AUTO) 1 % (0-1); EOSINOPHILS % (AUTO) 2 % (1-7); LYMPHOCYTES % (AUTO) 26 % (22-44); MEAN CORPUSCULAR HEMOGLOBIN 22.6 pg (27.0-34.8); MEAN CORPUSCULAR HGB CONC 31.1 g/dL (32.4-35.8); MEAN PLATELET VOLUME 8.6 fL (7.4-10.4); MONOCYTES % (AUTO) 9 % (2-9); NEUTROPHILS % (AUTO) 62 % (42-75); PLATELET COUNT 242 x10^3/uL (130-400); RED BLOOD COUNT 3.42 x10^6/uL (3.82-5.3); RED CELL DISTRIBUTION WIDTH 19.8 % (9.6-15.2)
[2020-01-30 05:51] LABS: ANION GAP 7 mmol/L (5-15); CALCIUM 7.9 mg/dL (8.5-10.1); CHLORIDE 109 mmol/L (98-107)
[2020-01-30] MEDS: FERROUS SULFATE 325 MG TABLET PO SCH ×4 (06:00→22:41)
[2020-01-30] MEDS ORDERED: HYDROmorphone 1 MG/ML, 1ML INJ IV ONE (06:00)
[2020-01-30 06:14] LABS: MD NO
--- NOTE | 2020-01-30 06:21 | NUR ---
PT RATES PAIN AT A 7/10. LITTLE IMPROVEMENT. RN TO ADMINISTER 1MG DILAUDID ONCE IV PER MD ORDER. VSS.
--- NOTE | 2020-01-30 07:04 | NUR ---
Report given to JORGE Gotti.
--- NOTE | 2020-01-30 07:40 | NUR ---
report from yelitza rascon. as
--- NOTE | 2020-01-30 07:40 | NUR ---
pt rsting in bed vss. was at bedside to visit. ir called, no time on procedure yet. pt npo since midnight, aware. call meng. as
--- NOTE | 2020-01-30 08:24 | NUR ---
dilaudid per mar for pain. as
--- NOTE | 2020-01-30 11:09 | NUR ---
IMPROVED AFTER MEDS.
[2020-01-30] MEDS ORDERED: FLUMAZENIL 0.1 MG/1 ML, 5ML ONE (12:05)
[2020-01-30] MEDS ORDERED: MIDAZOLAM 1 MG/ML, 5ML ONE (12:05)
[2020-01-30] MEDS ORDERED: NALOXONE 1 MG/ML, 2ML ONE (12:05)
[2020-01-30] MEDS ORDERED: FENTANYL PF 100 MCG/2ML ONE (12:05)
--- NOTE | 2020-01-30 12:28 | NUR ---
REPORT TO JERRY EDWARDS RN. PT TO GO TO IR AND THEN FLOOR. ALL BELONGINGS ON BED.
[2020-01-30] MEDS ORDERED: LIDOCAINE 1%, 20ML ONE (12:34)
[2020-01-30 14:44] VITALS: BP 115/78
[2020-01-30] MEDS ORDERED: POTASSIUM CHLORIDE 20 MEQ TAB.ER.PRT PO SCH (17:00)
[2020-01-30] MEDS ORDERED: PROMETHAZINE 25 MG SUPP PR PRN (19:00)
[2020-01-30] MEDS ORDERED: morphine SULFATE ORAL.CONC 20 MG/ML BC PRN (19:00)
[2020-01-30] MEDS: ENOXAPARIN 40 MG/0.4 ML SQ SCH (20:12)
[2020-01-30 20:39] VITALS: BP 108/69
[2020-01-30] MEDS: NS + 20MEQ KCL 1,000 ML IV SCH (22:39)
[2020-01-31 01:18] VITALS: BP 105/68
[2020-01-31] MEDS: HYDROmorphone 2 MG/ML, 1ML IVPush PRN ×6 (01:56→23:02)
[2020-01-31] MEDS: AMPICILLIN/SULBACTAM 3 GM in SODIUM CHLORIDE 0.9% 100 ML IV SCH ×4 (02:28→19:54)
[2020-01-31] MEDS: FERROUS SULFATE 325 MG TABLET PO SCH ×4 (06:27→22:22)
[2020-01-31 07:05] VITALS: BP 109/73
[2020-01-31 07:10] LABS: ALBUMIN 3.2 g/dL (3.4-5.0); ANION GAP 8 mmol/L (5-15); CALCIUM 8.3 mg/dL (8.5-10.1); CHLORIDE 105 mmol/L (98-107)
[2020-01-31 07:14] LABS: ALANINE AMINOTRANSFERASE 13 U/L (12-78); ALKALINE PHOSPHATASE 77 U/L (45-117); BILIRUBIN,TOTAL 0.5 mg/dL (0.2-1.0); CREATININE 0.73 mg/dL (0.55-1.02); TOTAL PROTEIN 7.5 g/dL (6.4-8.2)
[2020-01-31 07:19] LABS: BASOPHILS % (AUTO) 0 % (0-1); EOSINOPHILS % (AUTO) 0 % (1-7); LYMPHOCYTES % (AUTO) 7 % (22-44); MEAN CORPUSCULAR HEMOGLOBIN 22.6 pg (27.0-34.8); MEAN CORPUSCULAR HGB CONC 30.4 g/dL (32.4-35.8); MEAN PLATELET VOLUME 8.8 fL (7.4-10.4); MONOCYTES % (AUTO) 4 % (2-9); NEUTROPHILS % (AUTO) 89 % (42-75); PLATELET COUNT 191 x10^3/uL (130-400); RED BLOOD COUNT 3.56 x10^6/uL (3.82-5.3); RED CELL DISTRIBUTION WIDTH 19.9 % (9.6-15.2)
[2020-01-31 07:37] LABS: MD NO
[2020-01-31] MEDS: ONDANSETRON 2MG/ML, 2ML IVPush PRN (08:27)
[2020-01-31] MEDS: NS + 20MEQ KCL 1,000 ML IV SCH (08:28)
[2020-01-31] MEDS: POTASSIUM CHLORIDE 20 MEQ TAB.ER.PRT PO SCH ×2 (12:19→19:03)
[2020-01-31 13:25] VITALS: BP 110/72
[2020-01-31 19:40] VITALS: BP 132/72
[2020-01-31] MEDS: MELATONIN 5 MG TABLET PO PRN (19:53)
[2020-01-31] MEDS: ENOXAPARIN 40 MG/0.4 ML SQ SCH (19:54)
[2020-02-01 00:49] VITALS: BP 100/66
[2020-02-01] MEDS: AMPICILLIN/SULBACTAM 3 GM in SODIUM CHLORIDE 0.9% 100 ML IV SCH ×4 (01:27→20:18)
[2020-02-01] MEDS: FERROUS SULFATE 325 MG TABLET PO SCH ×4 (06:10→20:20)
[2020-02-01 06:14] LABS: BASOPHILS % (AUTO) 0 % (0-1); EOSINOPHILS % (AUTO) 1 % (1-7); LYMPHOCYTES % (AUTO) 16 % (22-44); MEAN CORPUSCULAR HEMOGLOBIN 22.4 pg (27.0-34.8); MEAN CORPUSCULAR HGB CONC 30.4 g/dL (32.4-35.8); MEAN PLATELET VOLUME 8.9 fL (7.4-10.4); MONOCYTES % (AUTO) 5 % (2-9); NEUTROPHILS % (AUTO) 77 % (42-75); PLATELET COUNT 208 x10^3/uL (130-400); RED BLOOD COUNT 3.34 x10^6/uL (3.82-5.3); RED CELL DISTRIBUTION WIDTH 19.5 % (9.6-15.2)
[2020-02-01 06:18] LABS: ANION GAP 7 mmol/L (5-15); CHLORIDE 108 mmol/L (98-107)
[2020-02-01 06:21] LABS: CALCIUM 8.2 mg/dL (8.5-10.1); CREATININE 0.58 mg/dL (0.55-1.02); MD NO
[2020-02-01 09:00] VITALS: BP 106/69
[2020-02-01] MEDS: POTASSIUM CHLORIDE 20 MEQ TAB.ER.PRT PO SCH ×2 (09:25→15:52)
[2020-02-01] MEDS: HYDROmorphone 2 MG/ML, 1ML IVPush PRN ×3 (11:23→20:54)
[2020-02-01] MEDS: NS + 20MEQ KCL 1,000 ML IV SCH ×2 (13:13→22:34)
[2020-02-01] MEDS: FLUCONAZOLE 200 MG TABLET PO SCH (13:16)
[2020-02-01] MEDS: HYDROcodone/APAP 10/325 MG TABLET PO PRN ×3 (14:52→23:38)
[2020-02-01 15:08] VITALS: BP 109/89
[2020-02-01] MEDS: ENOXAPARIN 40 MG/0.4 ML SQ SCH (20:00)
[2020-02-01 20:20] VITALS: BP 99/62
[2020-02-01] MEDS: MELATONIN 5 MG TABLET PO PRN (22:33)
[2020-02-02] VITALS (9 sets, daily range): BP systolic 95–121; BP diastolic 52–76
[2020-02-02] MEDS: AMPICILLIN/SULBACTAM 3 GM in SODIUM CHLORIDE 0.9% 100 ML IV SCH ×4 (02:16→20:35)
[2020-02-02] MEDS: NS + 20MEQ KCL 1,000 ML IV SCH ×2 (03:59→14:32)
[2020-02-02] MEDS: FERROUS SULFATE 325 MG TABLET PO SCH ×4 (03:59→20:34)
[2020-02-02] MEDS: HYDROmorphone 2 MG/ML, 1ML IVPush PRN ×4 (04:27→20:50)
[2020-02-02] MEDS: HYDROcodone/APAP 10/325 MG TABLET PO PRN ×3 (06:34→23:35)
[2020-02-02] MEDS: FLUCONAZOLE 200 MG TABLET PO SCH (08:20)
[2020-02-02 08:27] LABS: BASOPHILS % (AUTO) 1 % (0-1); EOSINOPHILS % (AUTO) 2 % (1-7); LYMPHOCYTES % (AUTO) 14 % (22-44); MEAN CORPUSCULAR HEMOGLOBIN 22.8 pg (27.0-34.8); MEAN CORPUSCULAR HGB CONC 30.6 g/dL (32.4-35.8); MEAN PLATELET VOLUME 8.3 fL (7.4-10.4); MONOCYTES % (AUTO) 7 % (2-9); NEUTROPHILS % (AUTO) 77 % (42-75); PLATELET COUNT 196 x10^3/uL (130-400); RED BLOOD COUNT 2.91 x10^6/uL (3.82-5.3); RED CELL DISTRIBUTION WIDTH 20.1 % (9.6-15.2)
[2020-02-02 08:36] LABS: ANION GAP 6 mmol/L (5-15); CALCIUM 8.4 mg/dL (8.5-10.1); CHLORIDE 106 mmol/L (98-107); CREATININE 0.44 mg/dL (0.55-1.02)
[2020-02-02 08:39] LABS: MD NO
[2020-02-02] MEDS: ONDANSETRON 2MG/ML, 2ML IVPush PRN (12:39)
[2020-02-02] MEDS ORDERED: OMNIPAQUE 350 MG/ML, 100ML BOTTLE ONE (21:46)
[2020-02-03] MEDS: ONDANSETRON 2MG/ML, 2ML IVPush PRN ×2 (00:09→22:36)
[2020-02-03 01:28] VITALS: BP 98/56
[2020-02-03] MEDS: AMPICILLIN/SULBACTAM 3 GM in SODIUM CHLORIDE 0.9% 100 ML IV SCH ×4 (01:36→20:21)
[2020-02-03] MEDS: NS + 20MEQ KCL 1,000 ML IV SCH ×2 (02:16→12:39)
[2020-02-03] MEDS: FERROUS SULFATE 325 MG TABLET PO SCH ×4 (06:11→20:21)
[2020-02-03 07:07] VITALS: BP 104/69
[2020-02-03 07:36] LABS: BASOPHILS % (AUTO) 1 % (0-1); EOSINOPHILS % (AUTO) 3 % (1-7); LYMPHOCYTES % (AUTO) 24 % (22-44); MEAN CORPUSCULAR HEMOGLOBIN 24.3 pg (27.0-34.8); MEAN CORPUSCULAR HGB CONC 31.7 g/dL (32.4-35.8); MEAN PLATELET VOLUME 8.3 fL (7.4-10.4); MONOCYTES % (AUTO) 8 % (2-9); NEUTROPHILS % (AUTO) 65 % (42-75); PLATELET COUNT 229 x10^3/uL (130-400); RED BLOOD COUNT 3.61 x10^6/uL (3.82-5.3); RED CELL DISTRIBUTION WIDTH 21.4 % (9.6-15.2)
[2020-02-03] MEDS: FLUCONAZOLE 200 MG TABLET PO SCH (07:36)
[2020-02-03] MEDS: HYDROmorphone 2 MG/ML, 1ML IVPush PRN ×5 (07:36→22:37)
[2020-02-03 07:41] LABS: MD NO
[2020-02-03 07:45] LABS: ALBUMIN 2.5 g/dL (3.4-5.0); ANION GAP 7 mmol/L (5-15); CALCIUM 8.3 mg/dL (8.5-10.1); CHLORIDE 108 mmol/L (98-107)
[2020-02-03 07:50] LABS: ALANINE AMINOTRANSFERASE 16 U/L (12-78); ALKALINE PHOSPHATASE 62 U/L (45-117); BILIRUBIN,TOTAL 0.2 mg/dL (0.2-1.0); CREATININE 0.59 mg/dL (0.55-1.02)
[2020-02-03 14:11] VITALS: BP 118/82
[2020-02-03 18:38] VITALS: BP 116/76
[2020-02-03] MEDS: HYDROcodone/APAP 10/325 MG TABLET PO PRN (20:28)
[2020-02-04 00:43] VITALS: BP 117/78
[2020-02-04] MEDS: NS + 20MEQ KCL 1,000 ML IV SCH ×2 (02:22→14:27)
[2020-02-04] MEDS: AMPICILLIN/SULBACTAM 3 GM in SODIUM CHLORIDE 0.9% 100 ML IV SCH ×4 (02:22→20:03)
[2020-02-04] MEDS: HYDROmorphone 2 MG/ML, 1ML IVPush PRN ×6 (02:27→23:22)
[2020-02-04] MEDS: FERROUS SULFATE 325 MG TABLET PO SCH ×4 (06:00→20:04)
[2020-02-04] MEDS: ONDANSETRON 2MG/ML, 2ML IVPush PRN ×2 (07:49→20:08)
[2020-02-04 08:00] VITALS: BP 115/75
[2020-02-04] MEDS ORDERED: MIDAZOLAM 1 MG/ML, 2ML ONE (08:59)
[2020-02-04] MEDS ORDERED: FENTANYL PF 100 MCG/2ML ONE (08:59)
[2020-02-04] MEDS: FLUCONAZOLE 200 MG TABLET PO SCH (09:00)
[2020-02-04] MEDS ORDERED: OMNIPAQUE 350 MG/ML, 50 ML BOTTLE ONE (09:15)
[2020-02-04] MEDS ORDERED: DEXAMETHASONE 4 MG/ML, 1ML ONE (09:22)
[2020-02-04] MEDS ORDERED: PROPOFOL 10 MG/ML, 20ML ONE (09:22)
[2020-02-04] MEDS ORDERED: ONDANSETRON 2MG/ML, 2ML ONE (09:22)
[2020-02-04] MEDS ORDERED: CEFAZOLIN 1,000 MG ONE (09:22)
[2020-02-04] MEDS ORDERED: HYDROmorphone 1 MG/ML, 1ML INJ IVPush PRN (09:30)
[2020-02-04] MEDS ORDERED: ACETAMINOPHEN 325 MG TABLET PO PRN (09:30)
[2020-02-04] MEDS ORDERED: FENTANYL PF 100 MCG/2ML IV PRN (09:30)
[2020-02-04] MEDS ORDERED: LORazepam 2 MG/ML, 1ML IVPush PRN (09:30)
[2020-02-04] MEDS ORDERED: METHOCARBAMOL 1,000 MG in DEXTROSE 5% 100 ML IV PRN (09:30)
[2020-02-04] MEDS ORDERED: OXYcodone 5 MG/5 ML ORAL.SOL UDC PO PRN (09:30)
[2020-02-04] MEDS ORDERED: PROMETHAZINE 25 MG/ML, 1ML IVPush PRN (09:30)
[2020-02-04] MEDS ORDERED: PROMETHAZINE 25 MG SUPP PR PRN (09:30)
[2020-02-04] MEDS ORDERED: ONDANSETRON 2MG/ML, 2ML IVPush PRN (09:30)
[2020-02-04 11:33] LABS: BASOPHILS % (AUTO) 1 % (0-1); EOSINOPHILS % (AUTO) 2 % (1-7); LYMPHOCYTES % (AUTO) 24 % (22-44); MEAN CORPUSCULAR HEMOGLOBIN 23.5 pg (27.0-34.8); MEAN CORPUSCULAR HGB CONC 30.5 g/dL (32.4-35.8); MEAN PLATELET VOLUME 8.2 fL (7.4-10.4); MONOCYTES % (AUTO) 9 % (2-9); NEUTROPHILS % (AUTO) 64 % (42-75); PLATELET COUNT 225 x10^3/uL (130-400); RED BLOOD COUNT 4.11 x10^6/uL (3.82-5.3); RED CELL DISTRIBUTION WIDTH 22.5 % (9.6-15.2)
[2020-02-04 11:40] LABS: ANION GAP 6 mmol/L (5-15); CALCIUM 8.5 mg/dL (8.5-10.1); CHLORIDE 107 mmol/L (98-107); CREATININE 0.61 mg/dL (0.55-1.02)
[2020-02-04 12:01] LABS: MD MORPH REVIEW ONLY
[2020-02-04 12:03] VITALS: BP 120/83
[2020-02-04 12:05] LABS: ANISOCYTOSIS 1+; HYPOCHROMIA 1+; MICROCYTOSIS 1+; POLYCHROMASIA 1+; STOMATOCYTES 1+
[2020-02-04 12:06] LABS: <PLATELET ESTIMATE> ADEQUATE; <PLT MORPHOLOGY> NORMAL PLT MORPH
[2020-02-04] MEDS: HYDROcodone/APAP 10/325 MG TABLET PO PRN (17:27)
[2020-02-04 19:07] VITALS: BP 95/63
[2020-02-04] MEDS: MELATONIN 5 MG TABLET PO PRN (20:08)
[2020-02-04] MEDS ORDERED: DIPHENHYDRAMINE 25 MG CAPSULE ONE (20:54)
[2020-02-04] MEDS ORDERED: DIPHENHYDRAMINE 25 MG CAPSULE PO PRN (21:00)
[2020-02-05 01:43] VITALS: BP 102/69
[2020-02-05] MEDS: NS + 20MEQ KCL 1,000 ML IV SCH ×2 (02:02→10:00)
[2020-02-05] MEDS: AMPICILLIN/SULBACTAM 3 GM in SODIUM CHLORIDE 0.9% 100 ML IV SCH ×2 (02:02→08:00)
[2020-02-05] MEDS: ONDANSETRON 2MG/ML, 2ML IVPush PRN (02:40)
[2020-02-05] MEDS: HYDROmorphone 2 MG/ML, 1ML IVPush PRN ×2 (02:40→08:36)
[2020-02-05] MEDS: HYDROcodone/APAP 10/325 MG TABLET PO PRN ×2 (05:39→12:11)
[2020-02-05] MEDS: FERROUS SULFATE 325 MG TABLET PO SCH ×2 (05:39→11:20)
[2020-02-05 06:55] VITALS: BP 99/64
[2020-02-05 07:05] LABS: BASOPHILS % (AUTO) 1 % (0-1); EOSINOPHILS % (AUTO) 3 % (1-7); LYMPHOCYTES % (AUTO) 28 % (22-44); MEAN CORPUSCULAR HEMOGLOBIN 23.8 pg (27.0-34.8); MEAN CORPUSCULAR HGB CONC 30.8 g/dL (32.4-35.8); MEAN PLATELET VOLUME 8.5 fL (7.4-10.4); MONOCYTES % (AUTO) 5 % (2-9); NEUTROPHILS % (AUTO) 62 % (42-75); PLATELET COUNT 289 x10^3/uL (130-400); RED BLOOD COUNT 4.21 x10^6/uL (3.82-5.3); RED CELL DISTRIBUTION WIDTH 22.8 % (9.6-15.2)
[2020-02-05 07:13] LABS: ANION GAP 7 mmol/L (5-15); CALCIUM 8.9 mg/dL (8.5-10.1); CHLORIDE 106 mmol/L (98-107)
[2020-02-05 07:14] LABS: CREATININE 0.71 mg/dL (0.55-1.02)
[2020-02-05 07:38] LABS: MD NO
[2020-02-05] MEDS: FLUCONAZOLE 200 MG TABLET PO SCH (08:36)
[2020-02-05] MEDS ORDERED: AMOXICILLIN/CLAV 875-125MG TABLET PO SCH (11:00)
[2020-02-05] MEDS ORDERED: HYDR-3245 PO (11:04)
[2020-02-05] MEDS ORDERED: AMOX1TAB64 PO (11:04)
[2020-02-05] MEDS ORDERED: FLUC200T PO (11:04)
[2020-02-05] MEDS ORDERED: ONDA-89 PO (11:04)
[2020-02-05 13:29] VITALS: BP 97/63
== END 2020-02-05 15:09 | disposition home or self-care (01) | DRG 690 ==
LOC: ED 17:02 → EDIP 20:56 → 3N 01-30 13:40
PROVIDERS: ADMIT Family Medicine; ATTEND Family Medicine
PROC: 0T9B70Z Drainage of Bladder with Drainage Device, Via Natural or Artificial Opening (ICD-10-PCS; 2020-01-29)
PROC: 30233N1 Transfusion of Nonautologous Red Blood Cells into Peripheral Vein, Percutaneous Approach (ICD-10-PCS; 2020-02-02)
PROC: BT1D1ZZ Fluoroscopy of Right Kidney, Ureter and Bladder using Low Osmolar Contrast (ICD-10-PCS; 2020-02-04)
PROC: 0TP98DZ Removal of Intraluminal Device from Ureter, Via Natural or Artificial Opening Endoscopic (ICD-10-PCS; principal; 2020-02-04 09:00)
DX: N13.6 Pyonephrosis (principal); N13.8 Other obstructive and reflux uropathy; B37.49 Other urogenital candidiasis; D62 Acute posthemorrhagic anemia; Z20.828 Contact with and (suspected) exposure to other viral communicable diseases; D50.9 Iron deficiency anemia, unspecified; E87.6 Hypokalemia; K42.9 Umbilical hernia without obstruction or gangrene; N92.1 Excessive and frequent menstruation with irregular cycle; Z83.3 Family history of diabetes mellitus; Z88.8 Allergy status to other drugs, medicaments and biological substances; Z93.6 Other artificial openings of urinary tract status; Z87.442 Personal history of urinary calculi; Z87.440 Personal history of urinary (tract) infections; M32.9 Systemic lupus erythematosus, unspecified
CPT/HCPCS: 36415; 50432; 74420; 87106; J3490; 74176; 74177; 76770; 80048; 80053; 81001; 83735; 84100; 85025; 85610; 85730; 86850; 86900; 86923; 87070; 87075; 87077; 87086; 87102; 87147; 87186; 87205; 87635; 99156; C1894; G0378; J0295; J0690; J1100; J1170; J1650; J2250; J2405; J2550; J2704; J3010; J3480; Q0162; Q9967; C1729; C1769; J2310; J7030; P9016; Q0163

== ENCOUNTER 2020-02-09 17:21 | Emergency (ER) | payer MEDICAID ==
[~2020-02-09] VITALS: Ht 149.9 cm; Wt 60.0 kg
[~2020-02-09 17:21] MED LIST changes: +FLUC200T PO; +HYDR-3245 PO; +ONDA-89 PO
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
[2020-02-09 19:11] LABS: MICROSCOPIC INDICATED
[2020-02-09] MEDS ORDERED: MORPHINE SULFATE 4 MG/ML, 1ML ONE ×2 (19:11→22:04)
[2020-02-09] MEDS ORDERED: ONDANSETRON 2MG/ML, 2ML ONE ×2 (19:11→22:04)
--- NOTE | 2020-02-09 19:29 | NUR ---
Break RN: Medicated patient per mar.
[2020-02-09] MEDS ORDERED: MORPHINE SULFATE 4 MG/ML, 1ML IVPush ONE ×2 (19:30→22:30)
[2020-02-09] MEDS ORDERED: ONDANSETRON 2MG/ML, 2ML IVPush ONE ×2 (19:30→22:30)
[2020-02-09 19:41] LABS: BASOPHILS % (AUTO) 1 % (0-1); EOSINOPHILS % (AUTO) 2 % (1-7); LYMPHOCYTES % (AUTO) 25 % (22-44); MEAN CORPUSCULAR HGB CONC 30.6 g/dL (32.4-35.8); MEAN PLATELET VOLUME 8.1 fL (7.4-10.4); MONOCYTES % (AUTO) 4 % (2-9); NEUTROPHILS % (AUTO) 68 % (42-75); PLATELET COUNT 512 x10^3/uL (130-400); RED BLOOD COUNT 4.84 x10^6/uL (3.82-5.3); RED CELL DISTRIBUTION WIDTH 24.4 % (9.6-15.2)
[2020-02-09 19:49] LABS: ANION GAP 7 mmol/L (5-15); CALCIUM 9.4 mg/dL (8.5-10.1); CHLORIDE 109 mmol/L (98-107)
[2020-02-09 19:51] LABS: MD NO
--- NOTE | 2020-02-09 20:42 | NUR ---
PATIENT TO CT SCAN.
--- NOTE | 2020-02-09 21:29 | NUR ---
PATIENT RESTING IN GURNEY WITH EYES CLOSED, RESP EVEN AND UNLABORED, NADN, VSS, CALL LIGHT WITHIN REACH, WILL CONTINUE TO MONITOR.
[2020-02-09 22:06] VITALS: BP 115/44
--- NOTE | 2020-02-09 22:34 | NUR ---
Patient given discharge instructions and they have confirmed that they understand the instructions, all questions answered. Patient stable and ambulatory with steady gait from ED to private vehicle, significant other driving.
== END 2020-02-09 22:35 | disposition home or self-care (01) ==
LOC: ED 22:10
DX: G89.11 Acute pain due to trauma (principal); R10.9 Unspecified abdominal pain; Z98.51 Tubal ligation status
CPT/HCPCS: 36415; 74176; 80048; 81001; 82040; 85025; 87086; 96374; 96375; 96376; 99284; J2270; J2405; 87077

== ENCOUNTER 2020-02-13 12:47 | Emergency (ER) | payer MEDICAID ==
[~2020-02-13] VITALS: Ht 149.9 cm; Wt 59.0 kg
--- NOTE | 2020-02-13 13:21 | NUR ---
C/O PAIN AT NEPHROSTOMY SITE SINCE LAST NIGHT AND BLOOD IN URINE. + N/V TODAY. PT STATES SHE CONTACTED HER DOCTOR AND ADVISED TO COME IN.
[2020-02-13] MEDS ORDERED: HYDROmorphone 2 MG/ML, 1ML ONE (13:47)
[2020-02-13] MEDS ORDERED: ONDANSETRON 2MG/ML, 2ML ONE (13:48)
[2020-02-13] MEDS ORDERED: ONDANSETRON 2MG/ML, 2ML IVPush ONE (14:00)
[2020-02-13 14:15] LABS: BASOPHILS % (AUTO) 1 % (0-1); EOSINOPHILS % (AUTO) 2 % (1-7); LYMPHOCYTES % (AUTO) 27 % (22-44); MEAN CORPUSCULAR HEMOGLOBIN 24.5 pg (27.0-34.8); MEAN CORPUSCULAR HGB CONC 30.8 g/dL (32.4-35.8); MEAN PLATELET VOLUME 8.2 fL (7.4-10.4); MONOCYTES % (AUTO) 6 % (2-9); NEUTROPHILS % (AUTO) 64 % (42-75); PLATELET COUNT 407 x10^3/uL (130-400); RED CELL DISTRIBUTION WIDTH 23.4 % (9.6-15.2)
--- NOTE | 2020-02-13 14:17 | NUR ---
IV PLACEMENT FAIL X2. WILL REQUEST U/S GUIDED IV.
[2020-02-13 14:23] LABS: ALBUMIN 4.1 g/dL (3.4-5.0); ANION GAP 8 mmol/L (5-15); CALCIUM 8.9 mg/dL (8.5-10.1); CHLORIDE 107 mmol/L (98-107)
--- NOTE | 2020-02-13 14:41 | NUR ---
PT IN CT.
[2020-02-13 14:43] LABS: ANISOCYTOSIS 1+; MD MORPH REVIEW ONLY; MICROCYTOSIS 1+; OVALOCYTES 1+
[2020-02-13 14:44] LABS: HYPOCHROMIA 1+
[2020-02-13 14:45] LABS: <PLATELET ESTIMATE> INCREASED; <PLT MORPHOLOGY> NORMAL PLT MORPH
[2020-02-13] MEDS: HYDROmorphone 2 MG/ML, 1ML IVPush PRN ×2 (14:58→15:19)
[2020-02-13 15:55] LABS: MICROSCOPIC INDICATED
[2020-02-13 15:59] LABS: MICROSCOPIC INDICATED
[2020-02-13 18:09] VITALS: BP 118/68
== END 2020-02-13 18:12 | disposition home or self-care (01) ==
LOC: ED 18:06
DX: R10.9 Unspecified abdominal pain (principal); G89.29 Other chronic pain; R11.2 Nausea with vomiting, unspecified; R31.9 Hematuria, unspecified; Z98.51 Tubal ligation status
CPT/HCPCS: 36415; 74176; 80048; 81001; 82040; 85025; 87077; 87086; 87186; 96374; 96375; 99285; J1170; J2405; 99284

== ENCOUNTER 2020-02-17 01:53 | Emergency (ER) | payer MEDICAID ==
[~2020-02-17] VITALS: Ht 149.9 cm; Wt 61.0 kg
--- NOTE | 2020-02-17 02:08 | NUR ---
INITIAL PT CONTACT. PT PRESENTS TO ED C/O NEPHROSTOMY TUBE INSERTION SITE LEAKING AND RIGHT FLANK PAIN, HX OF SAME. PT REPORTS TUBE "MOVED MORE AND NOW IT IS LEAKING AND IT HURTS REALLY BAD". PT SITTING UPRIGHT ON JASON JACKSON. ERP AT BEDSIDE. STAFF AT BEDSIDE FOR PIV INSERTION. NO ADDITIONAL NEEDS AT THIS TIME.
[2020-02-17] MEDS ORDERED: MORPHINE SULFATE 4 MG/ML, 1ML ONE (02:22)
[2020-02-17] MEDS ORDERED: ONDANSETRON 2MG/ML, 2ML ONE (02:22)
[2020-02-17] MEDS ORDERED: ONDANSETRON 2MG/ML, 2ML IVPush ONE (02:30)
[2020-02-17] MEDS ORDERED: MORPHINE SULFATE 4 MG/ML, 1ML IVPush ONE (02:30)
[2020-02-17 02:53] LABS: BASOPHILS % (AUTO) 1 % (0-1); EOSINOPHILS % (AUTO) 2 % (1-7); LYMPHOCYTES % (AUTO) 29 % (22-44); MEAN CORPUSCULAR HEMOGLOBIN 24.9 pg (27.0-34.8); MEAN CORPUSCULAR HGB CONC 31.3 g/dL (32.4-35.8); MEAN PLATELET VOLUME 8.7 fL (7.4-10.4); MONOCYTES % (AUTO) 5 % (2-9); NEUTROPHILS % (AUTO) 63 % (42-75); PLATELET COUNT 405 x10^3/uL (130-400); RED BLOOD COUNT 4.28 x10^6/uL (3.82-5.3); RED CELL DISTRIBUTION WIDTH 24.3 % (9.6-15.2)
--- NOTE | 2020-02-17 03:00 | NUR ---
US AT BEDSIDE
[2020-02-17 03:03] LABS: ANION GAP 7 mmol/L (5-15); CALCIUM 8.5 mg/dL (8.5-10.1); CHLORIDE 112 mmol/L (98-107)
[2020-02-17 03:15] LABS: MD MORPH REVIEW ONLY
[2020-02-17 03:17] LABS: ANISOCYTOSIS 1+
[2020-02-17 03:18] LABS: MICROCYTOSIS 1+
[2020-02-17 03:19] LABS: HYPOCHROMIA 1+
[2020-02-17 03:20] LABS: <PLATELET ESTIMATE> ADEQUATE; LARGE PLATELETS 1+
--- NOTE | 2020-02-17 03:30 | NUR ---
PT SITTING UPRIGHT ON TL JACKSON VSS. PT REPORTS MINIMAL PAIN RELIEF FROM MORPHINE, "GOT WORSE AFTER PRESSING ON IT FOR THAT U.S.", REQUESTING ADDITIONAL DOSE, ERP NOTIFIED. WILL MEDICATE PER EMAR. PT DENIES ANY ADDITIONAL NEEDS AT THIS TIME. CALL LIGHT AND PERSONAL BELONGINGS WITHIN REACH.
[2020-02-17] MEDS ORDERED: HYDROmorphone 2 MG/ML, 1ML ONE ×2 (03:33→06:03)
[2020-02-17] MEDS ORDERED: HYDROmorphone 1 MG/ML, 1ML INJ IV ONE (04:00)
--- NOTE | 2020-02-17 04:16 | NUR ---
PT SITTING UPRIGHT ON TL JACKSON. PT REPORTS SIGNIFICANT PAIN RELIEF FOLLOWING DROP CREW LABORER. NO ADDITIONAL NEEDS AT THIS TIME. URINE SAMPLE COLLECTED AND SENT TO LAB
--- NOTE | 2020-02-17 04:31 | NUR ---
ERP AT BEDSIDE
[2020-02-17 04:56] LABS: MICROSCOPIC INDICATED
--- NOTE | 2020-02-17 06:00 | NUR ---
PT SITTING UPRIGHT ON GURNEY WATCHING TV, NAD, VSS. PT REQUESTS ADDITIONAL DOSE OF PAIN MEDICATION "PAIN IS STARTING TO GET WORSE". ERP NOTIFIED. CALL LIGHT AND PERSONAL BELONGINGS WITHIN REACH.
[2020-02-17] MEDS: HYDROmorphone 2 MG/ML, 1ML IVPush PRN ×2 (06:08→12:40)
--- NOTE | 2020-02-17 06:18 | NUR ---
PT UP TO BATHROOM WITH THIS RN. AMBULATED WITH STEADY GAIT.
--- NOTE | 2020-02-17 07:02 | NUR ---
REPORT TO MAGGIE PATEL.
--- NOTE | 2020-02-17 07:15 | NUR ---
REPORT RECEIVED FROM JORGE KRUEGER, CARE ASSUMED AT THIS TIME. PT STILL AWAITING IR FOR NEPHROSTOMY REPLACEMENT.
--- NOTE | 2020-02-17 07:55 | NUR ---
ir rn at bedside
--- NOTE | 2020-02-17 08:00 | NUR ---
PT TAKEN TO IR, NADN AT TRANSPORT.
[2020-02-17] MEDS ORDERED: LIDOCAINE 1%, 10ML ONE (08:27)
[2020-02-17] MEDS ORDERED: FENTANYL PF 100 MCG/2ML ONE (08:35)
[2020-02-17] MEDS ORDERED: MIDAZOLAM 1 MG/ML, 5ML ONE (08:35)
[2020-02-17] MEDS ORDERED: FLUMAZENIL 0.1 MG/1 ML, 5ML ONE (08:35)
[2020-02-17] MEDS ORDERED: NALOXONE 1 MG/ML, 2ML ONE (08:35)
--- NOTE | 2020-02-17 08:41 | NUR ---
PT REMAINS IN IR
--- NOTE | 2020-02-17 09:19 | NUR ---
pt back from IR, pt is awake but drowsy. pt given 5mg versed and 100mcg fentanyl intraprocedure per IR RN. pt rates rt flank pain at 6. pt awaiting EDMD recheck and dispo. call light in reach. pt instructed to remain in bed and wait for assistance prior to getting out of bed.
--- NOTE | 2020-02-17 10:30 | NUR ---
pt drowsy, but awake. resps even and unlabored. rates rt flank pain at 6/10. awaiting MD reassessment and dispo.
--- NOTE | 2020-02-17 11:45 | NUR ---
MD humphreys notified pt requiring reassessment prior to dc as she is reporting continued rt flank pain s/p nephrostomy replacemnet. to see prior to pt discharge.
[2020-02-17] MEDS ORDERED: HYDROmorphone 1 MG/ML, 1ML INJ ONE (12:35)
[2020-02-17 12:42] VITALS: BP 124/76
--- NOTE | 2020-02-17 12:42 | NUR ---
TASK RN: PT REPORTS 6/10 PAIN. MEDICATED PER EMAR. POC IS DC. BOYFRIEND TO TRANSPORT PT HOME
--- NOTE | 2020-02-17 13:16 | NUR ---
PT A&O, RESPS EVEN AND UNLABORED, PAIN TOLERABLE. PT GIVEN DC INSTRUCTIONS AND SCRIPT BY JORGE NORTON. PT INSTRUCTED NOT TO DRIVE, PT TO BE TAKEN HOME BY BOYFRIEND. PT AMBULATORY TO DC DESK WITH STEADY GAIT, ALL QUESTIONS ANSWERED.
== END 2020-02-17 13:17 | disposition home or self-care (01) ==
LOC: ED 03:13
DX: N12 Tubulo-interstitial nephritis, not specified as acute or chronic (principal); N39.0 Urinary tract infection, site not specified; N99.522 Malfunction of incontinent external stoma of urinary tract
CPT/HCPCS: 36415; 50435; 76770; 80048; 81001; 85025; 87077; 87086; 87186; 96374; 96375; 96376; 99156; 99157; 99285; C1729; C1769; J1170; J2250; J2270; J2405; J3010; 75984; J2310

== ENCOUNTER 2020-02-19 18:41 | Emergency (ER) | payer MEDICAID ==
[~2020-02-19] VITALS: Ht 149.9 cm; Wt 65.0 kg
--- NOTE | 2020-02-19 19:16 | NUR ---
pt to room from triage
[2020-02-19] MEDS ORDERED: HYDROmorphone 1 MG/ML, 1ML INJ ONE (19:59)
[2020-02-19] MEDS ORDERED: ONDANSETRON 2MG/ML, 2ML ONE (19:59)
[2020-02-19] MEDS ORDERED: HYDROmorphone 2 MG/ML, 1ML IVPush PRN (20:00)
[2020-02-19] MEDS ORDERED: ONDANSETRON 2MG/ML, 2ML IVPush ONE (20:00)
[2020-02-19 20:03] LABS: BASOPHILS % (AUTO) 1 % (0-1); EOSINOPHILS % (AUTO) 2 % (1-7); LYMPHOCYTES % (AUTO) 19 % (22-44); MEAN CORPUSCULAR HGB CONC 31.4 g/dL (32.4-35.8); MEAN PLATELET VOLUME 7.9 fL (7.4-10.4); MONOCYTES % (AUTO) 5 % (2-9); NEUTROPHILS % (AUTO) 73 % (42-75); PLATELET COUNT 323 x10^3/uL (130-400); RED BLOOD COUNT 3.88 x10^6/uL (3.82-5.3)
[2020-02-19 20:12] LABS: MICROSCOPIC INDICATED
[2020-02-19 20:14] LABS: ALBUMIN 4.1 g/dL (3.4-5.0); ANION GAP 5 mmol/L (5-15); CALCIUM 8.7 mg/dL (8.5-10.1); CHLORIDE 107 mmol/L (98-107); CREATININE 0.76 mg/dL (0.55-1.02)
[2020-02-19 20:31] LABS: MD MORPH REVIEW ONLY
[2020-02-19 20:33] LABS: HYPOCHROMIA 1+; MICROCYTOSIS 1+
[2020-02-19 20:35] LABS: <PLATELET ESTIMATE> ADEQUATE; <PLT MORPHOLOGY> NORMAL PLT MORPH; OVALOCYTES 1+
[2020-02-19 20:36] LABS: POLYCHROMASIA 1+
--- NOTE | 2020-02-19 21:16 | NUR ---
PT TOLERATED PIV STATES MED HELPED FOR PAIN BACK FROM US AT THIS TIME
[2020-02-19] MEDS ORDERED: LEVOFLOXACIN/PMX 750MG/150ML 150 ML ONE (21:48)
--- NOTE | 2020-02-19 21:48 | NUR ---
PER START ABX WITHOUT BLOOD CULTURES
--- NOTE | 2020-02-19 21:53 | NUR ---
PT ALLERGIE TO [facility]IP[facility] DISCUSSED WITH PHARMACY AND MD BUTLER AND PT, PT STATED BENADRYL WAS GIVEN IV BEFORE LEVOQUIN AND SHE TOLERATED WELL, GOING AHEAD WITH POC
[2020-02-19] MEDS ORDERED: DIPHENHYDRAMINE 50 MG/ML, 1ML ONE (21:55)
[2020-02-19] MEDS ORDERED: DIPHENHYDRAMINE 50 MG/ML, 1ML IVPush ONE (22:00)
[2020-02-19] MEDS ORDERED: LEVOFLOXACIN/PMX 750MG/150ML 150 ML IV ONE (22:00)
[2020-02-20 00:01] VITALS: BP 120/70
== END 2020-02-20 00:04 | disposition home or self-care (01) ==
LOC: ED 20:30
DX: N10 Acute pyelonephritis (principal); N23 Unspecified renal colic; N39.0 Urinary tract infection, site not specified; R31.9 Hematuria, unspecified
CPT/HCPCS: 36415; 76770; 80048; 81001; 82040; 83605; 84703; 85025; 87086; 96365; 96366; 96375; 99284; J1170; J1200; J1956; J2405; 87077

== ENCOUNTER 2020-02-24 02:36 | Emergency (ER) | payer MEDICAID ==
[~2020-02-24] VITALS: Ht 149.9 cm; Wt 60.4 kg
--- NOTE | 2020-02-24 03:05 | NUR ---
PT CRYING DUE TO PAIN AT NEPHROSTOMY SITE
[2020-02-24] MEDS ORDERED: SODIUM CHLORIDE FLUSH 10ML SYR IVF ONE (03:30)
[2020-02-24] MEDS ORDERED: SODIUM CHLORIDE 0.9% 1,000 ML IV ONE (03:30)
[2020-02-24 03:35] LABS: BASOPHILS % (AUTO) 1 % (0-1); EOSINOPHILS % (AUTO) 2 % (1-7); LYMPHOCYTES % (AUTO) 30 % (22-44); MEAN CORPUSCULAR HGB CONC 31.3 g/dL (32.4-35.8); MEAN PLATELET VOLUME 8.2 fL (7.4-10.4); MONOCYTES % (AUTO) 8 % (2-9); NEUTROPHILS % (AUTO) 59 % (42-75); PLATELET COUNT 279 x10^3/uL (130-400); RED BLOOD COUNT 3.73 x10^6/uL (3.82-5.3); RED CELL DISTRIBUTION WIDTH 24.5 % (9.6-15.2)
[2020-02-24 03:37] LABS: ALANINE AMINOTRANSFERASE 21 U/L (12-78); ALBUMIN 3.7 g/dL (3.4-5.0); ANION GAP 5 mmol/L (5-15); CALCIUM 8.8 mg/dL (8.5-10.1); CHLORIDE 108 mmol/L (98-107); CREATININE 0.88 mg/dL (0.55-1.02)
[2020-02-24 03:39] LABS: ALKALINE PHOSPHATASE 58 U/L (45-117); BILIRUBIN,TOTAL 0.2 mg/dL (0.2-1.0); MD NO; TOTAL PROTEIN 7.8 g/dL (6.4-8.2)
[2020-02-24] MEDS ORDERED: ONDANSETRON 2MG/ML, 2ML IVPush ONE (04:00)
[2020-02-24] MEDS ORDERED: ONDANSETRON 2MG/ML, 2ML ONE (04:05)
[2020-02-24] MEDS ORDERED: MORPHINE SULFATE 4 MG/ML, 1ML ONE (04:05)
[2020-02-24] MEDS: MORPHINE SULFATE 4 MG/ML, 1ML IVPush PRN ×2 (04:08→04:42)
[2020-02-24 05:18] LABS: HCG UR SG 1.026 (1.003-1.030)
[2020-02-24 05:19] LABS: MICROSCOPIC INDICATED
[2020-02-24 05:58] VITALS: BP 117/82
== END 2020-02-24 06:08 | disposition home or self-care (01) ==
LOC: ED 04:06
DX: N13.2 Hydronephrosis with renal and ureteral calculous obstruction (principal); N23 Unspecified renal colic
CPT/HCPCS: 36415; 76770; 80053; 81001; 81025; 85025; 87086; 96374; 96375; 96376; 99285; J2270; J2405

== ENCOUNTER 2020-02-26 13:56 | Emergency (ER) | payer MEDICAID ==
[~2020-02-26] VITALS: Ht 149.9 cm; Wt 59.9 kg
[2020-02-26 14:10] VITALS: BP 121/78
[2020-02-26] MEDS ORDERED: ONDA4TAB13 PO (14:16)
[2020-02-26] MEDS ORDERED: PROM25SU35 RC (14:16)
--- NOTE | 2020-02-26 14:19 | NUR ---
STATES NEPHROSTOMY "KEEPS GETTING CLOGGED". APPT W/ BACKSHOE PERSON ON 02/28. TUBE WAS REPLACED OVER 1 WEEK AGO. CURRENTLY: TUBE SECURE, DARK URINE IN COLLECTION BAG. 45ML CLOUDY URINE DRAINED FROM BAG. DISCUSSED BAG CARE W/ PT; PT HAS BEEN USING LEG ATTACHEMENT STRAPS OVER BOTH DRAINAGE PORTS. C/O RT FLANK PAIN. TOOK NORCO AT 1230. TOOK ANTIBIOTIC THIS MORNING (DOESN'T RECALL NAME).
[2020-02-26] MEDS ORDERED: HYDROmorphone 1 MG/ML, 1ML INJ IM ONE (14:30)
[2020-02-26] MEDS ORDERED: ONDANSETRON ODT 4 MG PO ONE (14:30)
[2020-02-26] MEDS ORDERED: ONDANSETRON ODT 4 MG ONE (14:40)
[2020-02-26] MEDS ORDERED: HYDROmorphone 1 MG/ML, 1ML INJ ONE (14:41)
--- NOTE | 2020-02-26 14:46 | NUR ---
ZOFRAN AND DILAUDED GIVEN PER EMAR
[2020-02-26 14:50] LABS: BASOPHILS % (AUTO) 1 % (0-1); EOSINOPHILS % (AUTO) 2 % (1-7); LYMPHOCYTES % (AUTO) 25 % (22-44); MEAN CORPUSCULAR HEMOGLOBIN 24.8 pg (27.0-34.8); MEAN CORPUSCULAR HGB CONC 31.4 g/dL (32.4-35.8); MEAN PLATELET VOLUME 8.2 fL (7.4-10.4); MONOCYTES % (AUTO) 6 % (2-9); NEUTROPHILS % (AUTO) 66 % (42-75); PLATELET COUNT 249 x10^3/uL (130-400); RED BLOOD COUNT 4.19 x10^6/uL (3.82-5.3); RED CELL DISTRIBUTION WIDTH 23.4 % (9.6-15.2)
[2020-02-26 14:55] LABS: ALANINE AMINOTRANSFERASE 28 U/L (12-78); ALBUMIN 3.6 g/dL (3.4-5.0); ANION GAP 5 mmol/L (5-15); CALCIUM 8.9 mg/dL (8.5-10.1); CHLORIDE 108 mmol/L (98-107); CREATININE 0.77 mg/dL (0.55-1.02)
[2020-02-26 14:55] LABS: MICROSCOPIC INDICATED
[2020-02-26 14:57] LABS: ALKALINE PHOSPHATASE 65 U/L (45-117); BILIRUBIN,TOTAL 0.2 mg/dL (0.2-1.0)
[2020-02-26] MEDS ORDERED: SULFAMETH./TRIMETHOPRIM DS 800MG/160MG TABLET ONE (15:11)
[2020-02-26 15:12] LABS: MD NO
[2020-02-26] MEDS ORDERED: LORazepam 1MG TABLET ONE (15:12)
--- NOTE | 2020-02-26 15:40 | NUR ---
COLLECTION BAG DRAINING DARK URINE. PT REQUESTED NEW NEPHROSTOMY BAG; STATES SHE DOESN'T HAVE ANY EXTRA'S.
--- NOTE | 2020-02-26 15:44 | NUR ---
CALLED [facility] FOR NEPHROSTOMY BAG; WAS INFORMED THEY DO NOT HAVE ANY.
--- NOTE | 2020-02-26 15:57 | NUR ---
FEI DREW AT TO DISCUSS POC
[2020-02-26] MEDS ORDERED: FOSFOMYCIN 3 GM PACKET ONE (15:59)
[2020-02-26] MEDS ORDERED: FOSFOMYCIN 3 GM PACKET PO ONE (16:00)
--- NOTE | 2020-02-26 16:03 | NUR ---
PT STATES HER DOCTOR TOLD HER SHE NEEDS TO GET NEW BAG FROM RADIOLOGY. PT ALSO REQUESTING ADDITIONAL NORCO "TO GET ME THROUGH TO MY DOCTOR'S APPOINTMENT ON THE ". WILL CONSULT ERP. FOSFOMYCIN GIVEN. PT STATES HOME ANTIBIOTIC IS LEVAQUIN; 4 DOSES LEFT.
[2020-02-26] MEDS ORDERED: [UNRECOGNIZED DRUG - OTHER] (16:05)
--- NOTE | 2020-02-26 16:29 | NUR ---
DC DOCUMENT READY; NO MENTION R/T PT REQUEST; WILL CONSULT FEI DREW.
== END 2020-02-26 16:53 | disposition home or self-care (01) ==
LOC: ED 14:55
DX: N30.01 Acute cystitis with hematuria (principal)
CPT/HCPCS: 36415; 76770; 80053; 81001; 85025; 87077; 87086; 96372; 99284; J1170; Q0162; 87186

== ENCOUNTER 2020-03-04 14:47 | Emergency (ER) | payer MEDICAID ==
[~2020-03-04] VITALS: Ht 149.9 cm; Wt 58.0 kg
[~2020-03-04 14:47] MED LIST changes: +ONDA4TAB13 PO; +PROM25SU35 RC; +[UNRECOGNIZED DRUG - OTHER]
--- NOTE | 2020-03-04 15:42 | NUR ---
PT COMES IN C/O RIGHT FLANK PAIN. STATES HER BROTHERS ARE HERE VISITING AND WANTED TO WAKE HER UP SO THEY PULLED ON HER RIGHT NEPHROSTOMY DRAIN WHICH IS NOW CAUSING HER PAIN. ON ASSESSMENT, PT TENDER TO TOUCH IN RIGHT FLANK AREA. DR RETANA NOTED SMALL COMPROMISE IN DRAIN APPROX 6CM FROM INSERTION SITE. PT PALE ON ASSESSMENT. PT STATING SHE IS SCHEDULED FOR SX WITH HER UROLOGIST THURSDAY. AWARE. MONITORS CONNECTED. DENIES NEED FOR WARM BLANKET.
[2020-03-04] MEDS ORDERED: FENTANYL PF 100 MCG/2ML ONE ×2 (16:02)
[2020-03-04] MEDS ORDERED: FLUMAZENIL 0.1 MG/1 ML, 5ML ONE (16:03)
[2020-03-04] MEDS ORDERED: MIDAZOLAM 1 MG/ML, 5ML ONE (16:03)
[2020-03-04] MEDS ORDERED: NALOXONE 1 MG/ML, 2ML ONE (16:03)
[2020-03-04] MEDS ORDERED: LIDOCAINE 1%, 10ML ONE (16:03)
[2020-03-04] MEDS ORDERED: VISIPAQUE 320MG/ML, 50ML BOTTLE ONE (17:00)
--- NOTE | 2020-03-04 17:10 | NUR ---
REPORT TAKEN FROM RAMON DUARTE RN. STATES PT RECEIVED 3 VERSED AND 75MG OF FENTANYL FOR RIGHT NEPHROSTOMY TUBE REPLACEMENT. STATES PT AWAKE AWARE DURING PROCEDURE. PT. CRYING, C/O 6/10 RIGHT FLANK/RIGHT LOWER QUADRANT PAIN. VSS
[2020-03-04 18:08] VITALS: BP 112/67
--- NOTE | 2020-03-04 18:43 | NUR ---
PT AMBULATED TO DISCHARGE WITH STEADY GAIT. PT ENCOURAGED TO FOLLOW UP DISCUSSED. PT. EDUCATED TO RETURN TO THE ED WITH WORSENING SYMPTOMS.
== END 2020-03-04 18:44 | disposition home or self-care (01) ==
LOC: ED 15:06
DX: T83.092A Other mechanical complication of nephrostomy catheter, initial encounter (principal)
CPT/HCPCS: 50435; 99284; C1729; C1769; J2250; J3010; J3490; Q9967; J2310

== ENCOUNTER 2020-03-07 05:27 | Observation (INO) | payer MEDICAID ==
[~2020-03-07] VITALS: Ht 149.9 cm; Wt 70.2 kg
[2020-03-07 06:39] VITALS: BP 119/71
[2020-03-07] MEDS ORDERED: LEVO500T8 PO (06:39)
[2020-03-07] MEDS ORDERED: LACTATED RINGERS 1,000 ML IV SCH (07:00)
[2020-03-07] MEDS ORDERED: CHLORHEXIDINE 15 ML UDC MM ONE (07:00)
[2020-03-07] MEDS ORDERED: INDIGO CARMINE 0.8%, 5ML ONE (07:04)
[2020-03-07] MEDS ORDERED: BUPIVACAINE/PF 0.25% ONE (07:04)
[2020-03-07] MEDS ORDERED: METHYLENE BLUE 50 MG/10 ML AMP ONE (07:05)
[2020-03-07 07:19] LABS: HCG UR SG 1.024 (1.003-1.030)
[2020-03-07] MEDS ORDERED: MIDAZOLAM 1 MG/ML, 2ML ONE (07:29)
[2020-03-07] MEDS ORDERED: FENTANYL PF 250 MCG/5ML ONE ×2 (07:29→08:45)
[2020-03-07] MEDS ORDERED: BUPIVACAINE/PF 0.25% INFIL ONE ×2 (08:36→10:24)
[2020-03-07] MEDS ORDERED: DIPHENHYDRAMINE 50 MG/ML, 1ML ONE (08:48)
[2020-03-07] MEDS ORDERED: NEOSTIGMINE 1 MG/ML, 10ML ONE (08:48)
[2020-03-07] MEDS ORDERED: CEFAZOLIN 1,000 MG ONE (08:48)
[2020-03-07] MEDS ORDERED: ROCURONIUM 10MG/ML,5ML ONE (08:48)
[2020-03-07] MEDS ORDERED: ONDANSETRON 2MG/ML, 2ML ONE (08:48)
[2020-03-07] MEDS ORDERED: SUCCINYLCHOLINE 20 MG/ML, 10ML ONE (08:48)
[2020-03-07] MEDS ORDERED: GLYCOPYRROLATE 0.2MG/1ML, 5ML ONE (08:48)
[2020-03-07] MEDS ORDERED: PROPOFOL 10 MG/ML, 20ML ONE (08:48)
[2020-03-07] MEDS ORDERED: DEXAMETHASONE 4 MG/ML, 5ML ONE (08:49)
[2020-03-07] MEDS ORDERED: ONDANSETRON 2MG/ML, 2ML IVPush PRN (09:00)
[2020-03-07] MEDS ORDERED: HYDROmorphone 1 MG/ML, 1ML INJ IVPush PRN (09:00)
[2020-03-07] MEDS ORDERED: ACETAMINOPHEN 325 MG TABLET PO PRN (09:00)
[2020-03-07] MEDS ORDERED: LORazepam 2 MG/ML, 1ML IVPush PRN (09:00)
[2020-03-07] MEDS ORDERED: METHOCARBAMOL 1,000 MG in DEXTROSE 5% 100 ML IV PRN (09:00)
[2020-03-07] MEDS ORDERED: MEPERIDINE/PF 25MG/0.5ML IVPush PRN (09:00)
[2020-03-07] MEDS ORDERED: PROMETHAZINE 12.5 MG SUPP PR PRN (09:00)
[2020-03-07] MEDS ORDERED: OXYcodone 5 MG/5 ML ORAL.SOL UDC PO PRN (09:00)
[2020-03-07] MEDS ORDERED: PROMETHAZINE 25 MG/ML, 1ML IVPush PRN (09:00)
[2020-03-07] MEDS ORDERED: HYDROmorphone 1 MG/ML, 1ML INJ ONE (11:25)
[2020-03-07] MEDS ORDERED: HEPARIN 5,000 UNITS/ML, 1ML SQ SCH (11:30)
[2020-03-07] MEDS ORDERED: ONDANSETRON 2MG/ML, 2ML IV PRN (11:30)
[2020-03-07] MEDS ORDERED: OXYcodone 5 MG/5 ML ORAL.SOL UDC ONE (11:42)
[2020-03-07] MEDS ORDERED: MEPERIDINE/PF 25MG/ML,1ML ONE (11:48)
[2020-03-07] MEDS ORDERED: FENTANYL PF 100 MCG/2ML ONE (11:49)
[2020-03-07] MEDS: FENTANYL PF 100 MCG/2ML IV PRN ×2 (11:55→13:05)
[2020-03-07] MEDS ORDERED: ACETAMINOPHEN 650 MG/20.3 ML UDC ONE (11:59)
[2020-03-07] MEDS: OXYcodone 5 MG/5 ML ORAL.SOL UDC PO PRN ×3 (12:03→20:32)
[2020-03-07 12:12] LABS: ALBUMIN 3.7 g/dL (3.4-5.0); ANION GAP 6 mmol/L (5-15); CALCIUM 8.4 mg/dL (8.5-10.1); CHLORIDE 110 mmol/L (98-107); CREATININE 0.75 mg/dL (0.55-1.02)
[2020-03-07 14:15] VITALS: BP 108/72
[2020-03-07] MEDS: SODIUM CHLORIDE 0.9% 1,000 ML IV SCH (15:19)
[2020-03-07] MEDS: HYDROmorphone 1 MG/ML, 1ML INJ IV PRN ×2 (15:35→18:04)
[2020-03-07] MEDS: ACETAMINOPHEN 325 MG TABLET PO SCH (18:04)
[2020-03-07] MEDS: DOCUSATE 100 MG CAPSULE PO SCH (19:03)
[2020-03-07 20:26] VITALS: BP 105/65
[2020-03-07 23:31] VITALS: BP 94/57
[2020-03-08] MEDS: ACETAMINOPHEN 325 MG TABLET PO SCH ×3 (00:22→12:00)
[2020-03-08] MEDS: OXYcodone 5 MG/5 ML ORAL.SOL UDC PO PRN ×5 (02:39→14:58)
[2020-03-08] MEDS: SODIUM CHLORIDE 0.9% 1,000 ML IV SCH (02:40)
[2020-03-08 03:19] VITALS: BP 107/72
[2020-03-08 05:36] LABS: ANION GAP 6 mmol/L (5-15); CHLORIDE 110 mmol/L (98-107); CREATININE 1.01 mg/dL (0.55-1.02)
[2020-03-08 07:35] VITALS: BP 106/72
[2020-03-08] MEDS ORDERED: HEPARIN 5,000 UNITS/ML, 1ML SQ SCH (08:00)
[2020-03-08] MEDS: DOCUSATE 100 MG CAPSULE PO SCH (08:52)
[2020-03-08] MEDS ORDERED: POLYETHYLENE GLYCOL 17 GM PACKET PO SCH (09:00)
[2020-03-08] MEDS ORDERED: OXYC5SOL8 PO (12:42)
[2020-03-08 13:41] VITALS: BP 104/68
== END 2020-03-08 16:10 | disposition home or self-care (01) ==
LOC: OUT 05:27 → EDSTATUS 10:30 → 4NE 13:48 → OUT 13:54 → ORIP 13:54 → 4NE 14:12 → DCLOUNGE 03-08 16:05
PROVIDERS: ADMIT Student in an Organized Health Care Education/Training Program; ATTEND Student in an Organized Health Care Education/Training Program
DX: N13.1 Hydronephrosis with ureteral stricture, not elsewhere classified (principal); Z20.822 Contact with and (suspected) exposure to COVID-19; N23 Unspecified renal colic; D64.9 Anemia, unspecified; N39.0 Urinary tract infection, site not specified; E03.9 Hypothyroidism, unspecified; Z90.5 Acquired absence of kidney; Z79.899 Other long term (current) drug therapy; Z87.448 Personal history of other diseases of urinary system
CPT/HCPCS: 36415; 50544; 50546; 80048; 81025; 82040; 85014; 85018; 87635; 88307; 96361; 96372; 96374; 96375; 96376; C1760; C1769; G0378; J0690; J1100; J1170; J1200; J1644; J2250; J2405; J2704; J2710; J3010; J7030; J7120; Q0177; Q9968; J0330

== ENCOUNTER 2020-03-12 17:30 | Emergency (ER) | payer MEDICAID ==
[~2020-03-12] VITALS: Ht 149.9 cm; Wt 57.1 kg
[~2020-03-12 17:30] MED LIST changes: +LEVO500T8 PO; +OXYC5SOL8 PO
[2020-03-12] MEDS ORDERED: HYDROmorphone 1 MG/ML, 1ML INJ ONE ×2 (17:52→20:13)
[2020-03-12] MEDS ORDERED: ONDANSETRON 2MG/ML, 2ML ONE (17:52)
[2020-03-12] MEDS ORDERED: ONDANSETRON 2MG/ML, 2ML IVPush ONE (18:00)
[2020-03-12] MEDS ORDERED: SODIUM CHLORIDE 0.9% 1,000ML IVBOLUS ONE (18:00)
[2020-03-12 18:12] LABS: BASOPHILS % (AUTO) 1 % (0-1); EOSINOPHILS % (AUTO) 3 % (1-7); LYMPHOCYTES % (AUTO) 20 % (22-44); MEAN CORPUSCULAR HEMOGLOBIN 25.9 pg (27.0-34.8); MEAN PLATELET VOLUME 8.1 fL (7.4-10.4); MONOCYTES % (AUTO) 6 % (2-9); NEUTROPHILS % (AUTO) 71 % (42-75); PLATELET COUNT 418 x10^3/uL (130-400); RED CELL DISTRIBUTION WIDTH 23.1 % (9.6-15.2)
[2020-03-12 18:22] LABS: ALANINE AMINOTRANSFERASE 20 U/L (12-78); ANION GAP 9 mmol/L (5-15); CALCIUM 9.6 mg/dL (8.5-10.1); CHLORIDE 102 mmol/L (98-107)
[2020-03-12 18:27] LABS: ALKALINE PHOSPHATASE 82 U/L (45-117); BILIRUBIN,TOTAL 0.3 mg/dL (0.2-1.0); TOTAL PROTEIN 9.6 g/dL (6.4-8.2)
--- NOTE | 2020-03-12 18:52 | NUR ---
REPORT ROBBIE TO [place]
--- NOTE | 2020-03-12 18:53 | NUR ---
REPORT RECEIVED FROM JOSE E PATEL
[2020-03-12] MEDS: HYDROmorphone 2 MG/ML, 1ML IVPush PRN ×2 (18:54→20:15)
--- NOTE | 2020-03-12 19:05 | NUR ---
UA COLLECTED AND WALKED TO LAB. PT GIVEN WARM BLANKET
[2020-03-12 19:14] LABS: MD MORPH REVIEW ONLY
--- NOTE | 2020-03-12 19:14 | NUR ---
PT TO IMAGING
[2020-03-12 19:15] LABS: ANISOCYTOSIS 1+; MICROCYTOSIS 1+; POLYCHROMASIA 1+
[2020-03-12 19:16] LABS: <PLATELET ESTIMATE> INCREASED; <PLT MORPHOLOGY> NORMAL PLT MORPH
[2020-03-12 19:21] LABS: MICROSCOPIC INDICATED
[2020-03-12] MEDS ORDERED: OMNIPAQUE 350 MG/ML, 100ML BOTTLE ONE (19:41)
--- NOTE | 2020-03-12 20:18 | NUR ---
PT REQUESTNG PAIN MEDICATION FOR 7/10 PAIN AFTER RETURNING FROM IMAGING
[2020-03-12 20:38] VITALS: BP 125/80
== END 2020-03-12 20:51 | disposition home or self-care (01) ==
LOC: ED 18:08
DX: N30.00 Acute cystitis without hematuria (principal); K59.00 Constipation, unspecified; R10.84 Generalized abdominal pain; R11.2 Nausea with vomiting, unspecified; Z87.891 Personal history of nicotine dependence; Z90.5 Acquired absence of kidney
CPT/HCPCS: 36415; 74177; 80053; 81001; 83605; 83690; 84703; 85025; 87077; 87086; 96361; 96374; 96375; 96376; 99285; J1170; J2405; J7030; Q9967; 87186

== ENCOUNTER 2020-03-26 19:25 | Emergency (ER) | payer MEDICAID ==
[~2020-03-26] VITALS: Ht 149.9 cm; Wt 57.5 kg
[~2020-03-26 19:25] MED LIST changes: +HYDR-1067 PO; -HYDR-3240 PO; -OXYC5TAB3 PO; +OXYC5TAB98 PO
--- NOTE | 2020-03-26 20:10 | NUR ---
pt resting in bed in NAD. will continue to monitor.
[2020-03-26 20:59] LABS: MICROSCOPIC AUTO
[2020-03-26 21:05] LABS: BASOPHILS % (AUTO) 0 % (0-1); EOSINOPHILS % (AUTO) 6 % (1-7); LYMPHOCYTES % (AUTO) 27 % (22-44); MEAN PLATELET VOLUME 8.3 fL (7.4-10.4); MONOCYTES % (AUTO) 4 % (2-9); NEUTROPHILS % (AUTO) 62 % (42-75); PLATELET COUNT 347 x10^3/uL (130-400); RED BLOOD COUNT 3.69 x10^6/uL (3.82-5.3); RED CELL DISTRIBUTION WIDTH 21.1 % (9.6-15.2)
--- NOTE | 2020-03-26 21:05 | NUR ---
patient resting in bed. in NAD. reporting mild nausea. ambulated to bathroom with steady gait. call meng in reach. will continue to monitor
[2020-03-26 21:07] LABS: MD NO
[2020-03-26 21:11] LABS: ALANINE AMINOTRANSFERASE 17 U/L (12-78); ALBUMIN 3.3 g/dL (3.4-5.0); ANION GAP 5 mmol/L (5-15); CALCIUM 8.4 mg/dL (8.5-10.1); CHLORIDE 109 mmol/L (98-107); CREATININE 1.09 mg/dL (0.55-1.02)
[2020-03-26 21:16] LABS: ALKALINE PHOSPHATASE 76 U/L (45-117); BILIRUBIN,TOTAL 0.2 mg/dL (0.2-1.0); TOTAL PROTEIN 7.7 g/dL (6.4-8.2)
--- NOTE | 2020-03-26 21:54 | NUR ---
Iv insertion unsuccessful x 2. asked another DECORATOR MANNEQUIN to place one. straight cath performed and completed. patient c/o RLQ abdominal pain adn increasing nausea. will notify provider. in NAD. will continue to monitor.
[2020-03-26] MEDS ORDERED: HYDROmorphone 1 MG/ML, 1ML INJ IV ONE (22:00)
[2020-03-26] MEDS ORDERED: ONDANSETRON 2MG/ML, 2ML IVPush ONE (22:00)
[2020-03-26 22:07] LABS: MICROSCOPIC NOT IND
[2020-03-26] MEDS ORDERED: HYDROmorphone 1 MG/ML, 1ML INJ ONE (22:20)
[2020-03-26] MEDS ORDERED: ONDANSETRON 2MG/ML, 2ML ONE (22:20)
--- NOTE | 2020-03-26 22:30 | NUR ---
CT called that patient is ready for CT with IV
--- NOTE | 2020-03-26 23:30 | NUR ---
patient resting in bed. in NAD. asking how much longer she will be here for. call meng in reach. will continue to monitor.
[2020-03-26] MEDS ORDERED: OMNIPAQUE 350 MG/ML, 100ML BOTTLE ONE (23:56)
[2020-03-27] MEDS ORDERED: ONDANSETRON 2MG/ML, 2ML ONE (00:49)
[2020-03-27] MEDS ORDERED: ONDANSETRON 2MG/ML, 2ML IVPush ONE (01:00)
--- NOTE | 2020-03-27 01:11 | NUR ---
patient requestibng time frame to be dc'd. christine administered. waiting for dc paperwork or next plan of care
--- NOTE | 2020-03-27 01:43 | NUR ---
discharge instructions reviewed with patient. gait steady during ambulation to lobby. both IV's removed per dc protocol. in NAD. patient reports her "ride is outside waiting for her". patient acknowledges that she should not drive after receiving dilaudid IV tonight. all personal belongings with pt on dc. prescription directly handed to patient
[2020-03-27 01:44] VITALS: BP 118/81
== END 2020-03-27 01:48 | disposition home or self-care (01) ==
LOC: ED 21:25
DX: R11.2 Nausea with vomiting, unspecified (principal); R10.31 Right lower quadrant pain; R63.0 Anorexia
CPT/HCPCS: 36415; 74177; 80053; 81001; 81003; 83690; 84703; 85025; 87086; 96374; 96375; 96376; 99285; J1170; J2405; Q9967; 87147

== ENCOUNTER 2020-06-23 11:33 | Emergency (ER) | payer MEDICAID ==
[~2020-06-23] VITALS: Ht 149.9 cm; Wt 59.0 kg
[~2020-06-23 11:33] MED LIST changes: -HYDR-1067 PO; +HYDR-2214 PO; -HYDR-3245 PO; +HYDR1TAB53 PO
--- NOTE | 2020-06-23 12:12 | NUR ---
PT AMBULATED TO RESTROOM WITH STEADY GAIT TO PROVIDE URINE SAMPLE. UA COLLECTED AND SENT TO LAB.
[2020-06-23] MEDS ORDERED: ONDANSETRON ODT 4 MG ONE (12:15)
[2020-06-23] MEDS ORDERED: HYDROmorphone 1 MG/ML, 1ML INJ ONE (12:16)
--- NOTE | 2020-06-23 12:21 | NUR ---
MEDS ADMIN PER APR. PT CONNECTED TO MONITORING. CALL LIGHT IN REACH.
[2020-06-23] MEDS ORDERED: HYDROmorphone 1 MG/ML, 1ML INJ IM ONE (12:30)
[2020-06-23] MEDS ORDERED: ONDANSETRON ODT 4 MG PO PRN ×2 (12:30)
--- NOTE | 2020-06-23 12:31 | NUR ---
LABS DRAWN BY TOOL AND DIE REPAIRER. US AT BEDSIDE.
[2020-06-23 12:39] LABS: BASOPHILS % (AUTO) 1 % (0-1); EOSINOPHILS % (AUTO) 1 % (1-7); LYMPHOCYTES % (AUTO) 27 % (22-44); MEAN CORPUSCULAR HEMOGLOBIN 24.8 pg (27.0-34.8); MEAN CORPUSCULAR HGB CONC 31.1 g/dL (32.4-35.8); MEAN PLATELET VOLUME 7.8 fL (7.4-10.4); MONOCYTES % (AUTO) 5 % (2-9); NEUTROPHILS % (AUTO) 66 % (42-75); PLATELET COUNT 289 x10^3/uL (130-400); RED BLOOD COUNT 3.61 x10^6/uL (3.82-5.3); RED CELL DISTRIBUTION WIDTH 16.5 % (9.6-15.2)
[2020-06-23 12:40] LABS: MD NO
[2020-06-23 12:44] LABS: HCG UR SG 1.025 (1.003-1.030); MICROSCOPIC AUTO
--- NOTE | 2020-06-23 12:45 | NUR ---
PT STATES PAIN IS GETTING BETTER. PT RESTING ON R[place]ET[place] TALKING ON PHONE.
[2020-06-23 12:48] LABS: ALBUMIN 3.7 g/dL (3.4-5.0); ANION GAP 6 mmol/L (5-15); CALCIUM 8.4 mg/dL (8.5-10.1); CHLORIDE 110 mmol/L (98-107); CREATININE 0.83 mg/dL (0.55-1.02)
--- NOTE | 2020-06-23 12:57 | NUR ---
ALL RESULTS ARE BACK AT THIS TIME. CHART UP FOR RECHECK.
[2020-06-23] MEDS ORDERED: DIPHENHYDRAMINE 50 MG/ML, 1ML IM ONE (14:00)
[2020-06-23] MEDS ORDERED: CEFTRIAXONE 1,000 MG IM ONE (14:00)
[2020-06-23] MEDS ORDERED: CEFTRIAXONE 1,000 MG ONE (14:16)
[2020-06-23] MEDS ORDERED: DIPHENHYDRAMINE 50 MG/ML, 1ML ONE (14:16)
[2020-06-23 14:25] VITALS: BP 134/87
--- NOTE | 2020-06-23 14:25 | NUR ---
MEDS ADMIN PER APR. PT STATES SHE HAS RECEIVED ROCEPHIN AND BENADRYL TOGETHER IN THE PAST AND HAS NOT HAD ANY ADVERSE REACTIONS
== END 2020-06-23 14:49 | disposition home or self-care (01) ==
LOC: ED 12:26
DX: N10 Acute pyelonephritis (principal); N39.0 Urinary tract infection, site not specified; R11.2 Nausea with vomiting, unspecified
CPT/HCPCS: 36415; 76770; 80048; 81001; 81025; 82040; 85025; 87077; 87086; 87186; 96372; 99284; J0696; J1170; J1200; Q0162

== ENCOUNTER 2020-06-24 10:54 | Emergency (ER) | payer MEDICAID ==
[~2020-06-24] VITALS: Ht 149.9 cm; Wt 59.0 kg
[2020-06-24] MEDS ORDERED: MORPHINE SULFATE 4 MG/ML, 1ML ONE (11:19)
[2020-06-24] MEDS ORDERED: ONDANSETRON 2MG/ML, 2ML ONE (11:19)
[2020-06-24] MEDS ORDERED: SODIUM CHLORIDE 0.9% 1,000 ML IV ONE (11:30)
[2020-06-24] MEDS ORDERED: SODIUM CHLORIDE 0.9% 1,000ML IVBOLUS ONE (11:30)
[2020-06-24] MEDS ORDERED: ONDANSETRON 2MG/ML, 2ML IVPush ONE (11:30)
[2020-06-24] MEDS ORDERED: MORPHINE SULFATE 4 MG/ML, 1ML IVPush PRN (11:30)
[2020-06-24] MEDS ORDERED: SODIUM CHLORIDE FLUSH 10ML SYR IVF ONE (11:30)
[2020-06-24 11:56] LABS: ALBUMIN 3.9 g/dL (3.4-5.0); ANION GAP 7 mmol/L (5-15); CALCIUM 8.4 mg/dL (8.5-10.1); CHLORIDE 111 mmol/L (98-107); CREATININE 1.08 mg/dL (0.55-1.02)
[2020-06-24 11:58] LABS: ALANINE AMINOTRANSFERASE 22 U/L (12-78); ALKALINE PHOSPHATASE 86 U/L (45-117); BILIRUBIN,TOTAL 0.1 mg/dL (0.2-1.0); TOTAL PROTEIN 8.1 g/dL (6.4-8.2)
[2020-06-24 12:06] LABS: BASOPHILS % (AUTO) 1 % (0-1); EOSINOPHILS % (AUTO) 1 % (1-7); LYMPHOCYTES % (AUTO) 22 % (22-44); MEAN CORPUSCULAR HEMOGLOBIN 24.6 pg (27.0-34.8); MEAN CORPUSCULAR HGB CONC 30.9 g/dL (32.4-35.8); MEAN PLATELET VOLUME 8.6 fL (7.4-10.4); MONOCYTES % (AUTO) 5 % (2-9); NEUTROPHILS % (AUTO) 71 % (42-75); PLATELET COUNT 272 x10^3/uL (130-400); RED BLOOD COUNT 3.58 x10^6/uL (3.82-5.3); RED CELL DISTRIBUTION WIDTH 16.7 % (9.6-15.2)
--- NOTE | 2020-06-24 12:07 | NUR ---
BREAK RN: URINE COLLECTED VIA STRAIGHT CATH AND TAKEN TO LAB. IVF RUNNING. PT CONNECTED TO MONITORING. CALL LIGHT IN REACH.
[2020-06-24 12:10] VITALS: BP 123/68
[2020-06-24 12:23] LABS: MICROSCOPIC INDICATED
--- NOTE | 2020-06-24 12:30 | NUR ---
BREAK RN: PT PROVIDED WATER FOR PO CHALLENGE, PER ERMD ORDER.
[2020-06-24 12:33] LABS: ANISOCYTOSIS 1+; MD MORPH REVIEW ONLY; MICROCYTOSIS 1+
[2020-06-24 12:34] LABS: <PLATELET ESTIMATE> ADEQUATE; <PLT MORPHOLOGY> NORMAL PLT MORPH; HYPOCHROMIA 1+; POLYCHROMASIA 1+; STOMATOCYTES 1+
--- NOTE | 2020-06-24 12:42 | NUR ---
BREAK RN: REPORT BACK TO PRIMARY RN: [place].
--- NOTE | 2020-06-24 12:54 | NUR ---
Pt tolerated PO fluids well, states that pain has improved after medical office coordinator
== END 2020-06-24 13:05 | disposition home or self-care (01) ==
LOC: ED 11:40
DX: E86.0 Dehydration (principal); R10.32 Left lower quadrant pain; N18.9 Chronic kidney disease, unspecified; D63.1 Anemia in chronic kidney disease; R11.2 Nausea with vomiting, unspecified
CPT/HCPCS: 36415; 80053; 81001; 83605; 85025; 87040; 96361; 96374; 96375; 99284; J2270; J2405; J7030

== ENCOUNTER 2020-08-14 10:42 | Emergency (ER) | payer MEDICAID ==
[~2020-08-14] VITALS: Ht 149.9 cm; Wt 60.0 kg
[2020-08-14 11:10] LABS: BASOPHILS % (AUTO) 1 % (0-1); EOSINOPHILS % (AUTO) 3 % (1-7); LYMPHOCYTES % (AUTO) 31 % (22-44); MEAN CORPUSCULAR HEMOGLOBIN 24.1 pg (27.0-34.8); MEAN CORPUSCULAR HGB CONC 31.3 g/dL (32.4-35.8); MEAN PLATELET VOLUME 8.5 fL (7.4-10.4); MONOCYTES % (AUTO) 6 % (2-9); NEUTROPHILS % (AUTO) 59 % (42-75); PLATELET COUNT 269 x10^3/uL (130-400); RED BLOOD COUNT 3.75 x10^6/uL (3.82-5.3); RED CELL DISTRIBUTION WIDTH 17.5 % (9.6-15.2)
[2020-08-14 11:21] LABS: ALANINE AMINOTRANSFERASE 21 U/L (12-78); ALBUMIN 3.7 g/dL (3.4-5.0); ANION GAP 7 mmol/L (5-15); CALCIUM 8.9 mg/dL (8.5-10.1); CHLORIDE 112 mmol/L (98-107); CREATININE 0.91 mg/dL (0.55-1.02)
[2020-08-14 11:26] LABS: ALKALINE PHOSPHATASE 91 U/L (45-117); BILIRUBIN,TOTAL 0.1 mg/dL (0.2-1.0)
--- NOTE | 2020-08-14 12:54 | NUR ---
PT AMBULATORY TO BATHROOM TO PROVIDE URINE SAMPLE
--- NOTE | 2020-08-14 12:54 | NUR ---
metal tile setter: Pt ambulatory to room from lobby at this time.
--- NOTE | 2020-08-14 13:06 | NUR ---
DR RETANA AT BEDSIDE. PT ASSESSMENT REVIEWED AND POC DISCUSSED, QUESTIONS ANSWERED. VSS, CALL LIGHT W/I REACH
[2020-08-14] MEDS ORDERED: ONDANSETRON ODT 4 MG ONE (13:12)
[2020-08-14] MEDS ORDERED: ACETAMINOPHEN 500 MG TABLET ONE (13:12)
[2020-08-14 13:26] LABS: MICROSCOPIC INDICATED
[2020-08-14] MEDS ORDERED: ACETAMINOPHEN 500 MG TABLET PO ONE (13:30)
[2020-08-14] MEDS ORDERED: ONDANSETRON ODT 4 MG PO ONE (13:30)
[2020-08-14] MEDS ORDERED: HYDROmorphone 1 MG/ML, 1ML INJ ONE (14:06)
--- NOTE | 2020-08-14 14:11 | NUR ---
PT PAIN CONTINUES, PT VERY TEARFUL. DISCUSSED WITH DR RETANA. NEW ORDERS REC'D AND PT MED NOTED. CALL LIGHT W/I REACH. US PENDING.
[2020-08-14 14:12] VITALS: BP 114/65
[2020-08-14] MEDS ORDERED: HYDROmorphone 1 MG/ML, 1ML INJ IM ONE (14:30)
--- NOTE | 2020-08-14 14:45 | NUR ---
PT TO US WITH TECH TRANSPORT
--- NOTE | 2020-08-14 15:42 | NUR ---
Patient/Caregiver given discharge instructions and they have confirmed that they understand the instructions. Patient ambulatory with steady gait. NAD, all questions answered appropriately, denies additional needs at this time. No personal belongings left in room after discharge.
== END 2020-08-14 15:42 | disposition home or self-care (01) ==
LOC: ED 14:50
DX: N83.202 Unspecified ovarian cyst, left side (principal); Z87.442 Personal history of urinary calculi
CPT/HCPCS: 36415; 76830; 80053; 81001; 84703; 85025; 87086; 96372; 99284; J1170; Q0162

== ENCOUNTER 2020-08-16 18:13 | Emergency (ER) | payer MEDICAID ==
[~2020-08-16] VITALS: Ht 149.9 cm; Wt 60.0 kg
[2020-08-16 18:21] VITALS: BP 129/88
--- NOTE | 2020-08-16 20:19 | NUR ---
CALLED FROM LOBBY, NA
--- NOTE | 2020-08-16 20:19 | NUR ---
PT ELOPED PER LAB
== END 2020-08-16 20:55 | disposition left against medical advice (07) ==
LOC: ED 18:30
DX: R10.9 Unspecified abdominal pain (principal); R11.0 Nausea
CPT/HCPCS: 99281

== ENCOUNTER 2020-10-25 19:14 | Emergency (ER) | payer MEDICAID ==
[~2020-10-25] VITALS: Ht 149.9 cm; Wt 128.0 kg
[2020-10-25 19:31] VITALS: BP 122/89
--- NOTE | 2020-10-25 20:57 | NUR ---
SUPERVISOR PUBLICATIONS: NIL X 1
--- NOTE | 2020-10-25 21:15 | NUR ---
BEET TOPPER: NIL X 2 WHEN CALLED FOR ROOM.
--- NOTE | 2020-10-25 21:28 | NUR ---
NIL X 3 WHEN CALLED FOR ROOM.
== END 2020-10-25 21:29 | disposition left against medical advice (07) ==
LOC: ED 19:30
DX: R10.84 Generalized abdominal pain (principal); R11.0 Nausea; R42 Dizziness and giddiness
CPT/HCPCS: 99281

== ENCOUNTER 2020-10-26 08:06 | Emergency (ER) | payer MEDICAID ==
[~2020-10-26] VITALS: Ht 154.9 cm; Wt 58.0 kg
[2020-10-26 08:55] LABS: BASOPHILS % (AUTO) 1 % (0-1); EOSINOPHILS % (AUTO) 3 % (1-7); LYMPHOCYTES % (AUTO) 26 % (22-44); MEAN CORPUSCULAR HEMOGLOBIN 23.6 pg (27.0-34.8); MEAN CORPUSCULAR HGB CONC 30.1 g/dL (32.4-35.8); MEAN PLATELET VOLUME 8.2 fL (7.4-10.4); MONOCYTES % (AUTO) 5 % (2-9); NEUTROPHILS % (AUTO) 64 % (42-75); PLATELET COUNT 345 x10^3/uL (130-400); RED BLOOD COUNT 4.08 x10^6/uL (3.82-5.3); RED CELL DISTRIBUTION WIDTH 18.8 % (9.6-15.2)
[2020-10-26 09:06] LABS: ALBUMIN 3.8 g/dL (3.4-5.0); ANION GAP 9 mmol/L (5-15); CALCIUM 8.8 mg/dL (8.5-10.1); CHLORIDE 112 mmol/L (98-107)
[2020-10-26 09:08] LABS: ALANINE AMINOTRANSFERASE 17 U/L (12-78); ALKALINE PHOSPHATASE 73 U/L (45-117); BILIRUBIN,TOTAL 0.2 mg/dL (0.2-1.0); CREATININE 0.94 mg/dL (0.55-1.02); TOTAL PROTEIN 8.3 g/dL (6.4-8.2)
--- NOTE | 2020-10-26 09:11 | NUR ---
PT IN ULTRASOUND. WAITING FOR ARRIVAL IN ED ROOM TO ASSESSS.
--- NOTE | 2020-10-26 09:35 | NUR ---
PT IN ROOM FROM [facility]. CONNECTED TO MONITORING. VSS. NAD. RAILS UP. CALL LIGHT WITHIN REACH. URINE COLLECTED.
[2020-10-26 10:03] LABS: MICROSCOPIC INDICATED
[2020-10-26] MEDS ORDERED: PHENAZOPYRIDINE 200 MG TABLET PO ONE (10:30)
[2020-10-26] MEDS ORDERED: PHENAZOPYRIDINE 200 MG TABLET ONE (10:48)
--- NOTE | 2020-10-26 10:52 | NUR ---
PT MEDICATED PER MAR
[2020-10-26 11:28] LABS: MICROSCOPIC AUTO
[2020-10-26 12:13] VITALS: BP 111/76
--- NOTE | 2020-10-26 12:14 | NUR ---
PT REC'VD DISCHARGE INSTRUCTIONS AND EDUCATION. PT HAD NO FURTHER QUESTIONS.
--- NOTE | 2020-10-26 12:20 | NUR ---
PT AMBULATED TO WA AREA, STEADY GAIT.
== END 2020-10-26 13:02 | disposition home or self-care (01) ==
LOC: ED 10:48
DX: N93.8 Other specified abnormal uterine and vaginal bleeding (principal); N92.0 Excessive and frequent menstruation with regular cycle; D50.0 Iron deficiency anemia secondary to blood loss (chronic); E86.0 Dehydration
CPT/HCPCS: 36415; 76830; 80053; 81001; 84703; 85025; 86850; 86900; 87077; 87086; 87186; 99284

== ENCOUNTER 2020-11-14 17:42 | Emergency (ER) | payer MEDICAID ==
[~2020-11-14] VITALS: Ht 149.9 cm; Wt 59.0 kg
[2020-11-14 19:02] LABS: BASOPHILS % (AUTO) 2 % (0-1); EOSINOPHILS % (AUTO) 4 % (1-7); LYMPHOCYTES % (AUTO) 34 % (22-44); MEAN PLATELET VOLUME 8.4 fL (7.4-10.4); MONOCYTES % (AUTO) 9 % (2-9); NEUTROPHILS % (AUTO) 52 % (42-75); PLATELET COUNT 244 x10^3/uL (130-400); RED BLOOD COUNT 3.96 x10^6/uL (3.82-5.3); RED CELL DISTRIBUTION WIDTH 19.9 % (9.6-15.2)
[2020-11-14 19:13] LABS: ALBUMIN 3.6 g/dL (3.4-5.0); ANION GAP 4 mmol/L (5-15); CALCIUM 8.5 mg/dL (8.5-10.1); CHLORIDE 111 mmol/L (98-107)
[2020-11-14 19:22] LABS: ALANINE AMINOTRANSFERASE 20 U/L (12-78); ALKALINE PHOSPHATASE 63 U/L (45-117); BILIRUBIN,TOTAL 0.2 mg/dL (0.2-1.0); CREATININE 0.87 mg/dL (0.55-1.02)
[2020-11-14] MEDS ORDERED: MORPHINE SULFATE 4 MG/ML, 1ML IVPush PRN (19:30)
[2020-11-14] MEDS ORDERED: SODIUM CHLORIDE 0.9% 1,000ML IVBOLUS ONE (19:30)
[2020-11-14] MEDS ORDERED: ONDANSETRON 2MG/ML, 2ML IVPush ONE (19:30)
[2020-11-14 19:34] LABS: ANISOCYTOSIS 1+; HYPOCHROMIA 1+; MICROCYTOSIS 1+; OVALOCYTES 1+; POLYCHROMASIA 1+
[2020-11-14 19:35] LABS: <PLATELET ESTIMATE> ADEQUATE; <PLT MORPHOLOGY> NORMAL PLT MORPH
--- NOTE | 2020-11-14 20:16 | NUR ---
LATE ENTRY DUE TO PT CARE: PT PRESENTS TO ER FOR FLANK PAIN ONGOING FOR 3 DAYS NOW ASSOCIATED WITH N/V AND PAINFUL URINATION
--- NOTE | 2020-11-14 20:40 | NUR ---
THIS RN ATTEMPTED TO START AN IV ON PT, THIS RN BLEW ON VEIN AND REQUESTED ASSITANCE FROM WEARING [employer]PAREL SHAKER TO ATTEMPT ULTRASOUND IV
[2020-11-14 20:43] LABS: MICROSCOPIC INDICATED
[2020-11-14] MEDS ORDERED: OXYcodone/APAP 5/325MG TABLET ONE (21:22)
[2020-11-14] MEDS ORDERED: PROMETHAZINE 25 MG/ML, 1ML ONE (21:22)
[2020-11-14] MEDS ORDERED: PROMETHAZINE 25 MG/ML, 1ML IM ONE (21:30)
[2020-11-14] MEDS ORDERED: OXYcodone/APAP 5/325MG TABLET PO ONE (21:30)
--- NOTE | 2020-11-14 21:45 | NUR ---
Straight cath performed and UA walked to lab.
[2020-11-14 21:56] LABS: HCG UR SG 1.032 (1.003-1.030); MICROSCOPIC NOT IND
[2020-11-14 23:02] VITALS: BP 122/71
--- NOTE | 2020-11-14 23:04 | NUR ---
PT DID NOT WANT TO HAVE ULTRASOUND DONE AND JUST WANTED TO GO HOME, MD NOTIFIED, PT DISCHARGED
== END 2020-11-14 23:06 | disposition home or self-care (01) ==
LOC: ED 21:28
DX: R10.9 Unspecified abdominal pain (principal); Z87.891 Personal history of nicotine dependence
CPT/HCPCS: 36415; 74176; 80053; 81001; 81003; 81025; 84703; 85025; 87086; 96372; 99284; J2550

== ENCOUNTER 2020-11-15 17:31 | Emergency (ER) | payer MEDICAID ==
--- NOTE | 2020-11-15 17:46 | NUR ---
PT NIL X 1
--- NOTE | 2020-11-15 18:09 | NUR ---
PT NIL X 2
--- NOTE | 2020-11-15 18:34 | NUR ---
PT NIL X 3
== END 2020-11-15 18:36 | disposition left against medical advice (07) ==
LOC: ED 17:41
DX: M54.9 Dorsalgia, unspecified (principal); Z53.21 Procedure and treatment not carried out due to patient leaving prior to being seen by health care provider

== ENCOUNTER 2020-11-16 12:38 | Emergency (ER) | payer MEDICAID ==
[~2020-11-16] VITALS: Ht 149.9 cm; Wt 59.9 kg
[2020-11-16 12:41] VITALS: BP 110/70
[2020-11-16 14:05] LABS: BASOPHILS % (AUTO) 1 % (0-1); EOSINOPHILS % (AUTO) 3 % (1-7); LYMPHOCYTES % (AUTO) 27 % (22-44); MEAN CORPUSCULAR HEMOGLOBIN 23.9 pg (27.0-34.8); MEAN CORPUSCULAR HGB CONC 30.8 g/dL (32.4-35.8); MEAN PLATELET VOLUME 8.1 fL (7.4-10.4); MONOCYTES % (AUTO) 5 % (2-9); NEUTROPHILS % (AUTO) 64 % (42-75); PLATELET COUNT 293 x10^3/uL (130-400); RED BLOOD COUNT 4.17 x10^6/uL (3.82-5.3); RED CELL DISTRIBUTION WIDTH 19.9 % (9.6-15.2)
[2020-11-16 14:15] LABS: ALBUMIN 3.5 g/dL (3.4-5.0); ANION GAP 5 mmol/L (5-15); CALCIUM 8.2 mg/dL (8.5-10.1); CHLORIDE 109 mmol/L (98-107)
[2020-11-16 14:21] LABS: ALANINE AMINOTRANSFERASE 19 U/L (12-78); ALKALINE PHOSPHATASE 61 U/L (45-117); BILIRUBIN,TOTAL 0.2 mg/dL (0.2-1.0); CREATININE 1.52 mg/dL (0.55-1.02); TOTAL PROTEIN 8.1 g/dL (6.4-8.2)
--- NOTE | 2020-11-16 18:00 | NUR ---
MANNYx1
--- NOTE | 2020-11-16 18:44 | NUR ---
NILx2
--- NOTE | 2020-11-16 19:05 | NUR ---
TASK RN: NO ANSWERX3 TO TRIAGE FROM LOBBY
== END 2020-11-16 19:25 | disposition left against medical advice (07) ==
LOC: ED 12:38
DX: R10.32 Left lower quadrant pain (principal); R11.2 Nausea with vomiting, unspecified
CPT/HCPCS: 36415; 80053; 83690; 84703; 85025; 99283

== ENCOUNTER 2020-11-18 12:00 | Emergency (ER) | payer MEDICAID ==
[~2020-11-18] VITALS: Ht 149.9 cm; Wt 59.5 kg
[2020-11-18 13:09] LABS: BASOPHILS % (AUTO) 1 % (0-1); EOSINOPHILS % (AUTO) 2 % (1-7); LYMPHOCYTES % (AUTO) 22 % (22-44); MEAN CORPUSCULAR HEMOGLOBIN 24.3 pg (27.0-34.8); MEAN CORPUSCULAR HGB CONC 31.4 g/dL (32.4-35.8); MEAN PLATELET VOLUME 8.3 fL (7.4-10.4); MONOCYTES % (AUTO) 5 % (2-9); NEUTROPHILS % (AUTO) 71 % (42-75); PLATELET COUNT 312 x10^3/uL (130-400); RED CELL DISTRIBUTION WIDTH 19.9 % (9.6-15.2)
[2020-11-18 13:19] LABS: ALANINE AMINOTRANSFERASE 17 U/L (12-78); ALBUMIN 4.3 g/dL (3.4-5.0); ANION GAP 8 mmol/L (5-15); CALCIUM 9.1 mg/dL (8.5-10.1); CHLORIDE 110 mmol/L (98-107); CREATININE 0.86 mg/dL (0.55-1.02)
[2020-11-18 13:24] LABS: ALKALINE PHOSPHATASE 67 U/L (45-117); BILIRUBIN,TOTAL 0.2 mg/dL (0.2-1.0)
--- NOTE | 2020-11-18 19:09 | NUR ---
PT CALLED TO ROOM FROM LOBBY
[2020-11-18 19:30] LABS: MICROSCOPIC INDICATED
[2020-11-18] MEDS ORDERED: ONDANSETRON ODT 4 MG ONE (19:52)
[2020-11-18] MEDS ORDERED: ACETAMINOPHEN 325 MG TABLET ONE (19:52)
[2020-11-18] MEDS ORDERED: ONDANSETRON ODT 4 MG PO ONE (20:00)
[2020-11-18] MEDS ORDERED: ACETAMINOPHEN 325 MG TABLET PO ONE (20:00)
[2020-11-18 20:34] VITALS: BP 100/61
== END 2020-11-18 20:36 | disposition home or self-care (01) ==
LOC: ED 15:12
DX: N30.00 Acute cystitis without hematuria (principal)
CPT/HCPCS: 36415; 80053; 81001; 83690; 84703; 85025; 87086; 99283; Q0162